=== PATIENT | female | born 1935 | race Two or more races ===

== ENCOUNTER 2019-06-19 16:56 | Outpatient (CLI) | payer MEDICARE, MEDICAID, SELFPAY ==
[2019-06-19 17:25] LABS: Cholesterol 70 mg/dL (0-200); HDL Direct 26 mg/dL; Triglycerides 66 mg/dL (<150)
[2019-06-19 18:04] LABS: LDL Cholesterol Direct < 30 mg/dL
== END 2019-06-19 16:57 | disposition home or self-care (01) ==
LOC: ANHLAB 17:03
PROVIDERS: PCP Family Medicine; Visit Provider Family Medicine
DX: E78.5 Hyperlipidemia, unspecified (principal)
CPT/HCPCS: 36415; 80061

== ENCOUNTER 2019-06-22 18:37 | Emergency (ER) | payer MEDICARE, MEDICAID, SELFPAY ==
[2019-06-22] VITALS (8 sets, daily range): BP systolic 102–130; BP diastolic 61–78; PULSE 69–84; RESP 12–20; TEMP 36.7; O2SAT 98–100
--- NOTE | 2019-06-22 19:04 | ED.NAVMDI ---
HPI - Nausea/Vomiting/Diarrhea General Chief complaint: Nausea/Vomiting/Diarrhea Stated complaint: diarrhea Time Seen by Provider: 06/22/19 18:48 Source: patient Mode of arrival: EMS Limitations: no limitations History of Present Illness HPI Narrative: An 84 y/o female presents to the ED, via EMS, with c/o diarrhea. She states that the diarrhea started 3 weeks ago and has been intermittent since. Pt did not have any episodes of diarrhea today, and last had watery diarrhea 4 days ago. She saw her PCP, Dr. Pate, yesterday and they prescribed her a medication. The patient is unsure about the name of the medication and adds that they advised her to come to the ED if the medication did not help. She reports nausea, but denies ABD pain and fever. Pt had a colonoscopy in March 2019. MD elicited complaint: diarrhea Onset (ago): week(s) (3) Associated nausea: Yes Associated abdominal pain: No Associated symptoms: nausea/vomiting Related Data Home Medications Medication Instructions Recorded Confirmed alendronate mg PO 06/22/19 atorvastatin 06/22/19 Allergies Allergy/AdvReac Type Severity Reaction Status Date / Time No Known Allergies Allergy Unverified 03/06/18 06:31 Review of Systems Review of Systems: All systems reviewed & are unremarkable except as noted in HPI and below Constitutional: Constitutional: Denies fever(s) Gastrointestinal: Gastrointestinal: Denies abdominal pain, Reports diarrhea and Reports nausea PMFSH Past Medical History Medical History (Updated 06/22/19 @ 22:02 by Scotty Miller MD) Arthritis Hip fracture, right HTN (hypertension) Hyperlipidemia Osteoporosis Ulcer UTI (urinary tract infection) Surgical History Surgical History (Updated 06/22/19 @ 19:27 by Kimber Thomason) History of appendectomy History of cardiac catheterization History of colonoscopy History of hip surgery History of hysterectomy History of inguinal hernia repair Family History Family History Mother Hypertension Patient's mother is in good health Other Cerebrovascular accident Diabetes mellitus Family history of cardiovascular disease Social History Social History (Updated 06/22/19 @ 19:08 by Kimber Thomason) Smoking status: Former smoker Second hand tobacco smoke exposure: Yes Smoking end date: 04/18/00 Alcohol intake: never Exam Const: General: no acute distress, well developed and other (Elderly, frail) Nutritional Appearance: well nourished Orientation/consciousness: patient oriented x3 (alert) and Other orientation findings (Alert) Limitations: no limitations HENMT: Head: normocephalic and atraumatic Ears: external ears normal General nose exam: No nasal discharge present and no epistaxis Face and sinus: face symmetric Mouth: Yes lip normal, Yes tongue normal and Yes moist mucous membranes Throat: other (No exudate, no erythema) Eyes: Conjunctivae: conjunctivae normal Sclera: sclerae normal EOM: EOMs intact bilaterally Neck: Neck: full ROM, no lymphadenopathy and supple Thyroid: thyroid normal Chest: Chest palpation & inspection: no tenderness Resp: Effort & Inspection: normal respiratory effort Auscultation: clear to auscultation bilaterally, no rales, no rhonchi, no wheezes and other (breath sounds equal) Cardio: Rate: regular rate Rhythm: regular rhythm Heart sounds: no gallops and no murmurs GI: Inspection: non-distended GI Palp: No abdominal tenderness and Yes Soft to palpation Auscultation: other (bowel sounds present) : General: Yes no CVA tenderness Back/Spine/Pelvis: Back: no CVA tenderness Thoracic/Lumbar Spine: thoracic and lumbar spine normal to inspection Skin: General skin exam: normal color and no rashes or lesions noted Neuro: General: patient oriented x3 (alert), moves all extremities and no focal motor deficits Cranial nerves: Yes facial symmetry Speech: normal speech Motor exam (neuro): M
[2019-06-22 19:41] LABS: Basophils Percent Auto 0.2 % (0.2-1.2); Eosinophils Percent Auto 0.2 % (0-4.4); Hematocrit 34.3 % (37.0-47.0); Hemoglobin 11.4 g/dL (12.0-15.0); Immature Granulocyte Absolute 0.02 K/mm3 (0.00-0.031); Immature Granulocyte Percent A 0.4 % (0-0.5); Lymphocytes Absolute Auto 0.95 K/mm3 (0.9-3.2); Lymphocytes Percent Auto 18.8 % (18.3-44.2); Mean Corpuscular HGB Conc 33.2 g/dl (32-36); Mean Corpuscular Hemoglobin 28.8 pg (26-34); Mean Corpuscular Volume 86.6 fl (80-100); Monocytes Absolute Auto 0.6 K/mm3 (0.1-0.6); Monocytes Percent Auto 12.5 % (2.6-8.5); Neutrophils Absolute Auto 3.4 K/mm3 (1.3-6.7); Neutrophils Percent Auto 67.9 % (45.5-73.1); Platelet Count Result 200 k/mm3 (150-375); Red Blood Count 3.96 M/mm3 (4.2-5.4)
[2019-06-22 19:53] LABS: Alanine Aminotransferase 39 U/L (4-35); Albumin Level 3.3 g/dL (3.5-5.1); Alkaline Phosphatase 159 U/L (38-126); Aspartate Amino Transferase 59 U/L (14-36); Bilirubin,Total 0.6 mg/dL (0.2-1.3); Blood Urea Nitrogen 15 mg/dL (7-17); Calcium 8.4 mg/dL (8.4-10.2); Carbon Dioxide 25 mmol/L (22-30); Chloride 104 mmol/L (98-107); Estimated Glomerular Filt Rate > 60; Glucose 89 mg/dL (65-105); Potassium 3.5 mmol/L (3.4-5.0); Sodium 141 mmol/L (137-145)
[2019-06-22] MEDS: LACTATED RINGERS 1,000 ML 999 ML IV CONT (20:31)
== END 2019-06-22 23:20 | disposition home or self-care (01) ==
PROVIDERS: Emergency Provider Emergency Medicine; PCP Family Medicine
DX: R19.7 Diarrhea, unspecified (principal); M19.90 Unspecified osteoarthritis, unspecified site; I10 Essential (primary) hypertension; E78.5 Hyperlipidemia, unspecified; M81.0 Age-related osteoporosis without current pathological fracture; Z87.440 Personal history of urinary (tract) infections; Z87.891 Personal history of nicotine dependence
CPT/HCPCS: 36415; 80053; 85025; 96360; 99283; J7120

== ENCOUNTER 2019-07-08 11:46 | Observation (INO) | payer MEDICARE, MEDICAID, SELFPAY ==
[2019-07-08] VITALS (8 sets, daily range): BP systolic 101–130; BP diastolic 47–84; PULSE 64–90; RESP 16–18; TEMP 36.8–36.9; O2SAT 98–100
--- NOTE | ~2019-07-08 | XR_ITS ---
EXAMINATION: XR abdomen obstructive series DATE: 07/08/2019 12:25 INDICATION: Left lower quadrant pain. Constipation. TECHNIQUE: Supine and upright views of the abdomen. FINDINGS: 01/19/2012 The visualized lung parenchyma is normal.. There is a nonspecific bowel gas pattern. Mildly distended small bowel loops are present in the left abdomen with air-fluid levels. There is fecal impaction of the rectum. There is no free air. 2 lag screws are identified transfixing the right femoral neck. T here is mild scoliosis with lumbar spondylosis. IMPRESSION: 1. Nonspecific bowel gas pattern with distended small bowel loops with air-fluid levels, most likely ileus. 2: Fecal impaction of the rectum. Reviewed, dictated and finalized at location A. IMPRESSION: 1. Nonspecific bowel gas pattern with distended small bowel loops with air-flu id levels, most likely ileus. 2: Fecal impaction of the rectum.
--- NOTE | ~2019-07-08 | CT_ITS ---
EXAMINATION: CT abdomen pelvis w con DATE: 07/08/2019 12:52 INDICATION: Left lower quadrant pain TECHNIQUE: Computed tomography (CT) of the abdomen and pelvis was performed with 100 cc Omnipaque 350 intravenous contrast. The dose-length product was 240.02 mGy-cm. Automated exposure control and iter ative reconstruction technique were employed. COMPARISON: CT dated 08/08/2008 FINDINGS: Bibasilar dependent atelectasis. Heart size normal. No significant pleural or pericardial e ffusion. Moderate atherosclerosis. 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 Small surgical subcentimeter hypodensity of the right hepatic lobe, most likely benign. The spleen, pancre as, adrenal glands and right kidney are unremarkable. Subcentimeter hypodensity of the left kidney, m ost likely benign cysts. Nonobstructive bowel gas pattern. There is large amount of retained fecal ma terial in the colon. There is mild infiltration of the perirectal fat. Colonic diverticulosis without diverticulitis. Small fat-containing left inguinal hernia. No free air or free fluid. There are lag screws in the right femoral neck. There are degenerative changes of the hips and lumbar spine. IMPRESSION: 1. Moderate retained fecal material in the rectum and distal colon with infiltration of the perirecta l fat, suspicious for a stercoral proctitis. Reviewed, dictated and finalized at location A. IMPRESSION: 1. Moderate retained fecal material in the rectum and distal colon with infiltr ation of the perirectal fat, suspicious for a stercoral proctitis.
--- NOTE | ~2019-07-08 | US_ITS ---
US right upper quadrant INDICATION: Elevated liver enzymes. PROCEDURE: Realtime right upper abdominal ultrasound. COMPARISON: CT dated 07/08/2019 FINDINGS: The pancreas is normal without focal mass or pancreatic ductal dilation. Liver echotexture is normal without focal mass or intrahepatic biliary dilatation. There is nodular appearance to the liver surface, suspicious for cirrhosis. There is normal directional flow in the portal vein. The gallbladder is normal without stones, gallbladder wall thickening or pericholecystic fluid. Comm on bile duct measures 5 mm. No sonographic Preciado's sign. IMPRESSION: 1: Nodular appearance to the liver surface, suspicious for cirrhosis. Correlate clinically. Reviewed, dictated and finalized at location A.
[2019-07-08 12:12] LABS: Basophils Percent Auto 0.1 % (0.2-1.2); Immature Granulocyte Percent A 0.7 % (0-0.5); Lymphocytes Absolute Auto 0.43 K/mm3 (0.9-3.2); Lymphocytes Percent Auto 3.2 % (18.3-44.2); Mean Corpuscular HGB Conc 31.6 g/dl (32-36); Mean Corpuscular Hemoglobin 28.4 pg (26-34); Mean Corpuscular Volume 89.8 fl (80-100); Mean Platelet Volume 10.4 fl (7.4-10.4); Monocytes Absolute Auto 0.5 K/mm3 (0.1-0.6); Neutrophils Absolute Auto 12.4 K/mm3 (1.3-6.7); Platelet Count Result 237 k/mm3 (150-375); Red Blood Count 4.23 M/mm3 (4.2-5.4); Red Cell Distribution Width 14.5 % (11.5-14.5); White Blood Count 13.5 K/mm3 (4.5-10.0)
--- NOTE | 2019-07-08 12:15 | ED.ABDPAIN ---
HPI - Abdominal Pain General Chief Complaint: Abdominal Pain <PAUL Weber Last Filed: 07/08/19 17:02> Stated Complaint: constipation <PAUL Weber Last Filed: 07/08/19 17:02> Time Seen by Provider: 07/08/19 11:59 <PAUL Weber Last Filed: 07/08/19 17:02> Source: patient <PAUL Weber Last Filed: 07/08/19 17:02> Mode of arrival: ambulatory <PAUL Weber Last Filed: 07/08/19 17:02> Limitations: no limitations <PAUL Weber Last Filed: 07/08/19 17:02> History of Present Illness HPI narrative: Patient is an 84-year-old female who presents to emergency department for evaluation of having had diarrhea for a week which began to subside and notes now she has not had a bowel movement for a week has been straining with no improvement. Patient notes she has had some rectal discomfort from the straining and small amount of bleeding. Patient notes she had one episode of emesis today. Patient denies any other complaints or symptoms and presents per EMS from home in no distress <PAUL Weber Last Filed: 07/08/19 17:02> Related Data Home Medications: Home Medications Medication Instructions Recorded Confirmed alendronate 70 mg PO WEEKLY 06/22/19 atorvastatin 40 mg PO DAILY 06/22/19 Calcium 600 + D(3) 07/08/19 Probiotic 07/08/19 aspirin 81 mg PO DAILY 07/08/19 isosorbide mononitrate 15 mg PO DAILY 07/08/19 <PAUL Weber Last Filed: 07/08/19 17:02> Allergies/Adverse Reactions: Allergies Allergy/AdvReac Type Severity Reaction Status Date / Time No Known Allergies Allergy Unverified 03/06/18 06:31 <PAUL Weber Last Filed: 07/08/19 17:02> Review of Systems Review of Systems: All systems reviewed & are unremarkable except as noted in HPI and below <PAUL Weber Last Filed: 07/08/19 17:02> PMFSH Past Medical History Medical History: Medical History Arthritis Hip fracture, right HTN (hypertension) Hyperlipidemia Osteoporosis Ulcer UTI (urinary tract infection) <Daryn Sosa PA-C - Last Filed: 07/08/19 17:02> Surgical History Surgical History: Surgical History History of appendectomy History of cardiac catheterization History of colonoscopy History of hip surgery History of hysterectomy History of inguinal hernia repair <Daryn Sosa PA-C - Last Filed: 07/08/19 17:02> Social History Social History: Social History Smoking status: Former smoker Second hand tobacco smoke exposure: Yes Smoking end date: 04/18/00 Alcohol intake: never <Daryn Sosa PA-C - Last Filed: 07/08/19 17:02> Exam Narrative: Exam Narrative: GENERAL: Well-appearing, well-nourished, and in no acute distress. HEAD: Normocephalic, atraumatic. EYES: PERRLA and EOMI. ENT: Nares clear, no rhinorrhea or epistaxis. Mucous membranes moist. CHEST: Clear to auscultation. No respiratory distress. No wheezes rales or rhonchi HEART: Regular rate and rhythm. No murmur heard. Normal peripheral pulses. ABDOMEN: Soft, left lower quadrant tenderness to palpation with voluntary guarding, nondistended EXTREMITIES: Normal range of motion. No edema. SKIN: Warm, dry, no rash. NEURO: No focal deficits. Alert and oriented x3. Cranial nerves II through XII grossly intact PSYCH: Normal mood and affect. <Daryn Sosa PA-C - Last Filed: 07/08/19 17:02> Procedures Other Procedure Procedure 1: Other Procedure: Patient was manually disimpacted with lidocaine patient was able to tolerate the procedure in limited fashion no stool was removed but was able to attempt to loosen the stool ball <Daryn Sosa PA-C - Last Filed: 07/08/19 17:02> Course Course Delfina
[2019-07-08 12:28] LABS: Alanine Aminotransferase 324 U/L (4-35); Albumin Level 3.8 g/dL (3.5-5.1); Alkaline Phosphatase 1009 U/L (38-126); Aspartate Amino Transferase 311 U/L (14-36); Bilirubin,Total 1.1 mg/dL (0.2-1.3); Blood Urea Nitrogen 12 mg/dL (7-17); Calcium 9.1 mg/dL (8.4-10.2); Carbon Dioxide 25 mmol/L (22-30); Chloride 103 mmol/L (98-107); Estimated CRCL calculation 45 ml/min; Estimated Glomerular Filt Rate > 60; Glucose 120 mg/dL (65-105); Lipase 127 U/L (23-300); Sodium 136 mmol/L (137-145)
[2019-07-08] MEDS: SODIUM CHLORIDE 0.9% IV 1,000 ML 999 ML IV CONT (12:36)
[2019-07-08 12:39] LABS: Potassium 4.1 mmol/L (3.4-5.0)
[2019-07-08 12:54] LABS: Add Urine Microscopic? YES; Appearance Urine Clear (Clear); Bacteria Urine Trace /hpf; Bilirubin Urine Negative (Negative); Blood Urine 2+ (Negative); Color Urine Yellow (Yellow); Glucose Urine UA Negative (Negative); Ketones Urine 1+ mg/dL (Negative); Leukocyte Esterase Ur Trace LEU/UL (Negative); Mucus Urine Rare /lpf; Nitrate Urine Negative (Negative); Protein Urine 1+ mg/dL (Negative); Specific Grav Ur 1.018 (1.001-1.035); Squamous Epithelial Cell Urine Rare /hpf (Few); WBC Urine 16-20 /hpf
[2019-07-08 13:34] LABS: Lactic Acid Reflex 1.5 mmol/L (0.7-2.1)
[2019-07-08] MEDS: DOCUSATE SODIUM 400 MG/400 ML ENEMA RECTAL (13:35)
--- NOTE | 2019-07-08 14:52 | PC.NURSE ---
after colace enema, pt was placed on commode and unable to produce any feces. Pt sat for approx 25 minutes, and then was assisted back into bed and given blankets for comfort. HUYEN Cabrera, aware of results. Lidocaine jelly at bedside per Deshaun request
[2019-07-08] MEDS: LIDOCAINE HCL 2% GEL UROJET 10 ML PKG (15:23)
[2019-07-08] MEDS: polyethylene glycoL 3350 17 GM POWD.PACK PO (15:54)
[2019-07-08] MEDS: HYDROCORTISONE ACETATE 25 MG SUPPOSITORY RECTAL (17:28)
[2019-07-08] MEDS: LACTATED RINGERS 1,000 ML 125 ML IV CONT (18:30)
--- NOTE | 2019-07-08 18:45 | PM.IMHP ---
H&P: HPI History of Present Illness Chief complaint: Constipation. Narrative: Carmella Garcia is an 84-year-old female with hypertension, hyperlipidemia, and mild coronary artery disease noted on prior cardiac catheterization who presented to the emergency department earlier today with complaints of constipation. A couple of weeks ago she suffered diarrhea for several days, and after it subsided she then developed constipation. In fact she was seen in the emergency department June 19, 2019 with diarrhea and was instructed to follow-up with her GI specialist in [place]. Since that time, she has become constipated and it has been nearly 1 weeks time since she has had a bowel movement. She was wakened from sleep this morning at 03:30 with abdominal cramping, and she thought perhaps she was going to have a bowel movement. She strained on the toilet for quite some time, without success. She took a Dulcolax and used a glycerin suppository, and thereafter attempted to manually disimpact, again without success. She also notes nausea and 1 episode of emesis this morning that she describes as ?clear and cloudy? and generalized abdominal discomfort and occasional cramping. No significant bloating. An enema in the emergency department but was unable to pass any stool. The ED provider then attempted to manually disimpact, and despite using topical lidocaine the patient was unable to tolerate disimpaction. That CT in the emergency department showed findings suspicious for stercoral proctitis, in ED provider did note that the area was red and inflamed, with small amounts of bleeding. She has never had constipation to this extent in the past. No recent change in diet. No history of thyroid disease. Incidentally, her AST, ALT, and alkaline phosphatase are elevated, of which she denies a history of such. She denies significant Tylenol use. No exposure to hepatitis. No fever, chills, or sweats. No rash. Urine color remains unchanged. No pruritus. No jaundice or scleral icterus. Review of Systems Review of Systems: Narrative: No fever, chills, or sweats. No recent cold or flu symptoms. She denies chest pain and shortness of breath. Weight has remained stable. No history of thyroid disease. No dysuria. No known history of liver disease. No exposure to hepatitis. Appetite has been as per usual. She has lost about 9 or 10 pounds in an unknown length of time, but she denies that it was sudden. Except as documented, all other systems were reviewed and are negative. [facility] Past Medical History Medical History (Updated 07/08/19 @ 21:26 by Susan San PA-C) Arthritis Hip fracture, right Hyperlipidemia Hypertension Mild coronary artery disease : Patient notes mild coronary disease on prior cardiac catheterization per Dr. Thomas. No intervention required. Osteoporosis Surgical History Surgical History History of appendectomy History of cardiac catheterization History of colonoscopy History of hip surgery History of hysterectomy History of inguinal hernia repair Family History Family History Mother Hypertension Patient's mother is in good health Other Cerebrovascular accident Diabetes mellitus Family history of cardiovascular disease Social History Social History (Updated 07/08/19 @ 21:06 by Susan San PA-C) Social History: The patient lives in her own home in [place], [place]. 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 She has 1 daughter who lives in [place]. Her daughter, Katya Haider, is her surrogate decision maker and she wishes to be a full code. She smoked for short period of time remotely. No alcohol or drug use. Smoking packs per day: 0.25 Smoking cigarettes per day: 5.0 Smoking status: Former smoker Tobacco type: cigarettes Second hand tobacco smoke exposure: Yes Smoking end
--- NOTE | 2019-07-08 19:12 | PC.NURSE ---
Patient arrived on floor @1805, Patient oriented to unit, call light placed within reach of patient, daily home medications stated by patient.
[2019-07-08 22:04] LABS: Prothrombin Time 12.6 Seconds (11.1-14.7)
[2019-07-08 22:05] LABS: Partial Thromboplastin Time 28.4 SECONDS (22.3-36.8)
[2019-07-08 22:06] LABS: Acetaminophen 21 ug/mL (10-30)
[2019-07-08 22:37] LABS: Hepatitis B Surface Antigen Negative (Negative)
[2019-07-08 22:43] LABS: HAV RESULT Negative (Negative); Hepatitis B Core IgM Result Negative (Negative)
[2019-07-08 23:52] LABS: Hepatitis C Virus Antibody Reactive (Negative)
[2019-07-09 04:00] VITALS: BP 148/88; PULSE 84; RESP 20; TEMP 36.6; O2SAT 99
[2019-07-09] MEDS: HYDROCORTISONE ACETATE 25 MG SUPPOSITORY RECTAL (05:27)
[2019-07-09] MEDS: IBUPROFEN IV 400 MG in SODIUM CHLORIDE 0.9% IV 100 ML 200 MG IVPB (05:46)
[2019-07-09 06:00] VITALS: BP 141/70; PULSE 57; RESP 18; TEMP 36.8; O2SAT 100
[2019-07-09 06:20] LABS: Basophils Percent Auto 0.1 % (0.2-1.2); Eosinophils Percent Auto 0.1 % (0-4.4); Hematocrit 34.1 % (37.0-47.0); Hemoglobin 10.9 g/dL (12.0-15.0); Immature Granulocyte Absolute 0.03 K/mm3 (0.00-0.031); Immature Granulocyte Percent A 0.4 % (0-0.5); Lymphocytes Absolute Auto 1.04 K/mm3 (0.9-3.2); Lymphocytes Percent Auto 12.3 % (18.3-44.2); Mean Corpuscular Hemoglobin 28.5 pg (26-34); Mean Corpuscular Volume 89.3 fl (80-100); Mean Platelet Volume 10.7 fl (7.4-10.4); Monocytes Absolute Auto 0.6 K/mm3 (0.1-0.6); Monocytes Percent Auto 7.1 % (2.6-8.5); Neutrophils Absolute Auto 6.8 K/mm3 (1.3-6.7); Platelet Count Result 250 k/mm3 (150-375); Red Blood Count 3.82 M/mm3 (4.2-5.4); Red Cell Distribution Width 14.7 % (11.5-14.5); White Blood Count 8.5 K/mm3 (4.5-10.0)
[2019-07-09 06:27] LABS: Alanine Aminotransferase 242 U/L (4-35); Albumin Level 3.1 g/dL (3.5-5.1); Alkaline Phosphatase 707 U/L (38-126); Aspartate Amino Transferase 202 U/L (14-36); Bilirubin,Total 0.8 mg/dL (0.2-1.3); Blood Urea Nitrogen 9 mg/dL (7-17); Calcium 8.8 mg/dL (8.4-10.2); Carbon Dioxide 26 mmol/L (22-30); Chloride 108 mmol/L (98-107); Estimated CRCL calculation 45 ml/min; Estimated Glomerular Filt Rate > 60; Glucose 96 mg/dL (65-105); Potassium 3.9 mmol/L (3.4-5.0); Sodium 138 mmol/L (137-145)
[2019-07-09] MEDS: ASPIRIN 81 MG CHEWABLE TABLET PO (10:17)
[2019-07-09] MEDS: ISOSORBIDE MONONITRATE 15 MG TAB.ER.24H PO (10:18)
[2019-07-09 10:21] VITALS: BP 146/75; PULSE 70; RESP 18; O2SAT 100
--- NOTE | 2019-07-09 11:19 | WPDGICN ---
Assessment and Plan Assessment and plan (1) Constipation: Code(s): K59.00 - Constipation, unspecified Status: Acute Assessment and Plan: Constipation appears to be related to rectal discomfort. A vicious cycle is likely given her difficulty having bowel movement without rectal pain. And continued rectal pain while constipated. Plan is for regime to include stool softener such as Colace or fiber on a daily basis. Routine use of MiraLax initially daily and then on a routine basis subsequently period is advised. (2) Rectal pain: Code(s): K62.89 - Other specified diseases of anus and rectum Status: Acute Assessment and Plan: Rectal pain likely due to hemorrhoids. Although a rectal fissure cannot be excluded. I would advise lidocaine to be applied to this area it frequently typically after a bowel movement. Hopefully this will allow laxatives or enemas to relieve her constipation. Colonoscopy is advised after constipation is relieved. This can be performed as a outpatient unless she remains hospitalized. (3) Transaminitis: Code(s): R74.0 - Nonspecific elevation of levels of transaminase and lactic acid dehydrogenase [LDH] Status: Acute Assessment and Plan: Elevated LFTs identified. These are primarily her transaminases. HCV RIBA is positive suggesting possible hepatitis C infection. Confirmatory testing still pending. We will monitor LFTs at this time. If hepatitis C confirmed antiviral therapy can be performed electively as an outpatient. GI Consult Note Consult date/time: 07/09/19 11:19 HPI: Carmella Garcia is a 84 year old female seen in evaluation at the request of the hospitalist service. Patient has a history of irregular bowel habits. She presented to the emergency room complaining of rectal pain and constipation last evening. She occasionally notices bright red blood per rectum. Patient was seen in the ER several weeks ago with diarrhea now with constipation. It is uncertain how regularly she takes her bowel regime at home. Currently has not had a bowel movement in 1 week. She also was noted to have elevated LFTs. She denies any prior knowledge of this. She has no known history of hepatitis. There has been no recent change in her medications. She reports no yellow jaundice nor pure itis. Review of Systems Review of Systems: All systems reviewed & are unremarkable except as noted in HPI and below PMFSH Past Medical History Medical History Arthritis Hip fracture, right Hyperlipidemia Hypertension Mild coronary artery disease : Patient notes mild coronary disease on prior cardiac catheterization per Dr. Thomas. No intervention required. Osteoporosis Surgical History Surgical History History of appendectomy History of cardiac catheterization History of colonoscopy History of hip surgery History of hysterectomy History of inguinal hernia repair Family History Family History Mother Hypertension Patient's mother is in good health Other Cerebrovascular accident Diabetes mellitus Family history of cardiovascular disease Social History Social History Social History: The patient lives in her own home in [place], [place]. 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 She has 1 daughter who lives in [place]. Her daughter, Katya Haider, is her surrogate decision maker and she wishes to be a full code. She smoked for short period of time remotely. No alcohol or drug use. Smoking packs per day: 0.25 Smoking cigarettes per day: 5.0 Smoking status: Former smoker Tobacco type: cigarettes Second hand tobacco smoke exposure: Yes Smoking end date: 04/18/00 Spiritual care concerns: No Agree to blood products: Yes Meds
--- NOTE | 2019-07-09 11:31 | PM.IMPN ---
Progress Note: A&P Assessment and Plan (1) Constipation: Qualifiers: Constipation type: unspecified constipation type Qualified Code(s): K59.00 - Constipation, unspecified Code(s): K59.00 - Constipation, unspecified Status: Acute Assessment and Plan: Possibly aggravated by her rectal pain and unwillingness to take laxatives or stool softeners Topical analgesics for rectal pain Dulcolax sennosides, MiraLax Home when bowels move (2) Rectal pain: Code(s): K62.89 - Other specified diseases of anus and rectum Status: Acute Assessment and Plan: Hemorrhoids versus local irritation versus fissure Topical lidocaine Softeners and laxatives (3) Transaminitis: Code(s): R74.0 - Nonspecific elevation of levels of transaminase and lactic acid dehydrogenase [LDH] Status: Acute Assessment and Plan: Hepatitis C antibody positive with RNA pending Ultrasound abdomen suspicious for cirrhosis Will need outpatient follow-up (4) Hypertension: Qualifiers: Hypertension type: unspecified Qualified Code(s): I10 - Essential (primary) hypertension Code(s): I10 - Essential (primary) hypertension Status: Acute Assessment and Plan: Continue regimen Subjective Date/time seen: 07/09/19 11:31 Interval history: Admitted July 07 with obstipation fecal impaction and severe rectal pain. Refuses to take laxative because of rectal pain. Tolerating oral intake Review of Systems Review of Systems: All systems reviewed & are unremarkable except as noted in HPI and below Exam Narrative: Exam Narrative: HEENT: EOMI, PERRL, pharyngeal mucosa pink and intact NECK: No JVD CHEST: Clear to auscultation. Normal effort. HEART: NL S1/S2, regular, no murmur ABDOMEN: BS+, soft, nontender, no mass, no bruits EXTREMITIES: No cyanosis, edema, or clubbing NEUROLOGIC: CN intact and symmetric to inspection. MUSCULOSKELETAL: Tone and strength symmetric. PSYCH: Alert. Oriented to person, place, and time. Objective Data Vital Signs Vital Signs: Vital Signs - 24 hr 07/08/19 11:52 07/08/19 12:00 07/08/19 13:00 Temperature 98.4 F Pulse Rate 90 87 70 Respiratory Rate 16 18 16 Blood Pressure 118/71 130/84 125/69 Pulse Oximetry 98 99 100 07/08/19 15:00 07/08/19 16:53 07/08/19 17:35 Temperature Pulse Rate 65 72 83 Respiratory Rate 16 16 18 Blood Pressure 129/79 124/68 118/71 Pulse Oximetry 99 99 98 07/08/19 18:15 07/08/19 22:00 07/09/19 04:00 Temperature 98.4 F 98.3 F 97.8 F Pulse Rate 65 64 84 Respiratory Rate 18 18 20 Blood Pressure 101/47 L 128/69 148/88 H Pulse Oximetry 100 98 99 07/09/19 06:00 07/09/19 10:21 Temperature 98.2 F Pulse Rate 57 L 70 Respiratory Rate 18 18 Blood Pressure 141/70 H 146/75 H Pulse Oximetry 100 100 Intake/Output Intake/Output: Intake & Output 07/06/19 07/07/19 07/08/19 07/09/19 23:59 23:59 23:59 23:59 Intake Total 1200 434 Output Total 200 Balance 1200 234 Meds/Results Medications: Active Medications Generic Name Dose Route Start Last Admin [facility] Reason Stop Dose Admin Aspirin 81 mg 07/09/19 09:00 07/09/19 10:17 Aspirin Chewable PO 81 mg DAILY NESTOR Administration Bisacodyl 10 mg 07/09/19 11:27 Dulcolax Tab PO 07/09/19 11:28 ONCE ONE Calcium Carbonate 500 mg 07/09/19 09:00 07/09/19 10:17 Os-Jose Luis 500 +D Tablet PO 500 mg QAM NESTOR Administration Hydrocortisone Acetate 25 mg 07/09/19 04:04 07/09/19 05:27 Anusol-Hc Suppository RECTAL 25 mg Q12HR PRN Administration Rectal pain Isosorbide Mononitrate 15 mg 07/09/19 09:00 07/09/19 10:18 Imdur PO 15 mg QAM NESTOR Administration Lidocaine HCl 1 applic 07/09/19 11:24 Lidocaine Jelly 2% MUCOUS MEM Q4H PRN Hemorrhoids Ondansetron HCl 4 mg 07/08/19 17:03 Zofran Inj IV PUSH Q4H PRN Nausea Polyethylene Glycol 17 gm 07/09/19 1
[2019-07-09] MEDS: LIDOCAINE HCL 2% JELLY 30 ML TUBE 1 APPLIC MUCOUS MEM ×3 (11:57→20:31)
[2019-07-09] MEDS: BISACODYL 5 MG TABLET EC 10 MG PO (13:15)
[2019-07-09] MEDS: polyethylene glycoL 3350 17 GM POWD.PACK PO (13:16)
[2019-07-09] MEDS: SENNOSIDES 8.6 MG TABLET PO (13:16)
[2019-07-09 14:00] VITALS: BP 143/89; PULSE 73; RESP 18; TEMP 36.8; O2SAT 99
[2019-07-09 22:00] VITALS: BP 158/81; PULSE 91; RESP 18; TEMP 36.7; O2SAT 98
--- NOTE | 2019-07-09 23:03 | PC.NURSE ---
Pt is refusing medication, tried to educate patient on reason why medications are being given. Pt kept interrupting and would not listen to education. Pt still refused medications. Notified Susan MATSON.
[2019-07-09] MEDS: ACETAMINOPHEN 325 MG TABLET 650 MG PO (23:21)
[2019-07-09] MEDS: WITCH HAZEL 40 PADS 1 PAD TOPICAL (23:22)
[2019-07-10] MEDS: LIDOCAINE HCL 2% JELLY 30 ML TUBE 1 APPLIC MUCOUS MEM ×3 (04:45→14:02)
[2019-07-10] MEDS: polyethylene glycoL 3350 17 GM POWD.PACK PO ×7 (04:45→21:40)
[2019-07-10] MEDS: ACETAMINOPHEN 325 MG TABLET 650 MG PO ×3 (05:41→21:39)
[2019-07-10] MEDS: HYDROCORTISONE ACETATE 25 MG SUPPOSITORY RECTAL (05:52)
[2019-07-10 06:00] VITALS: BP 153/79; PULSE 73; RESP 18; TEMP 37.1; O2SAT 99
[2019-07-10] MEDS: ISOSORBIDE MONONITRATE 15 MG TAB.ER.24H PO (09:58)
[2019-07-10] MEDS: ASPIRIN 81 MG CHEWABLE TABLET PO (09:58)
--- NOTE | 2019-07-10 10:19 | PM.IMPN ---
Progress Note: A&P Assessment and Plan (1) Constipation: Qualifiers: Constipation type: unspecified constipation type Qualified Code(s): K59.00 - Constipation, unspecified Code(s): K59.00 - Constipation, unspecified Status: Acute Assessment and Plan: Possibly aggravated by her rectal pain and unwillingness to take laxatives or stool softeners Topical analgesics for rectal pain Dulcolax sennosides, MiraLax Home when bowels move (2) Rectal pain: Code(s): K62.89 - Other specified diseases of anus and rectum Status: Acute Assessment and Plan: Hemorrhoids versus local irritation versus fissure Topical lidocaine Softeners and laxatives (3) Transaminitis: Code(s): R74.0 - Nonspecific elevation of levels of transaminase and lactic acid dehydrogenase [LDH] Status: Acute Assessment and Plan: Hepatitis C antibody positive with RNA pending Ultrasound abdomen suspicious for cirrhosis Will need outpatient follow-up (4) Hypertension: Qualifiers: Hypertension type: unspecified Qualified Code(s): I10 - Essential (primary) hypertension Code(s): I10 - Essential (primary) hypertension Status: Acute Assessment and Plan: Continue regimen, nitrate only (5) DVT prophylaxis: Code(s): Z29.9 - Encounter for prophylactic measures, unspecified Status: Acute Assessment and Plan: Mechanical Subjective Date/time seen: 07/10/19 10:19 Interval history: Date of visit 07/09. 84-year-old black female admitted July 07 with obstipation fecal impaction and severe rectal pain. Refuses to take laxative because of rectal pain. Tolerating oral intake but still no bowel movement Exam Narrative: Exam Narrative: Blood pressure 150/80 pulse is 72 afebrile HEENT: EOMI, PERRL, NECK: No JVD CHEST: Clear to auscultation. Normal effort. HEART: NL S1/S2, regular, no murmur ABDOMEN: BS+, soft, nontender, no mass, no bruits EXTREMITIES: No cyanosis, edema, or clubbing NEUROLOGIC: CN intact and symmetric to inspection. . PSYCH: Alert. Oriented to person, place, and time. Objective Data Vital Signs Vital Signs: Vital Signs - 24 hr 07/09/19 10:21 07/09/19 14:00 07/09/19 22:00 Temperature 36.8 C 36.7 C Pulse Rate 70 73 91 Respiratory Rate 18 18 18 Blood Pressure 146/75 H 143/89 H 158/81 H Pulse Oximetry 100 99 98 07/10/19 06:00 Temperature 37.1 C Pulse Rate 73 Respiratory Rate 18 Blood Pressure 153/79 H Pulse Oximetry 99 Intake/Output Intake/Output: Intake & Output 07/07/19 07/08/19 07/09/19 07/10/19 23:59 23:59 23:59 23:59 Intake Total 1200 784 0 Output Total 200 450 Balance 1200 584 -450 Meds/Results Medications: Active Medications Generic Name Dose Route Start Last Admin Trade Name Freq PRN Reason Stop Dose Admin Acetaminophen 650 mg 07/09/19 23:12 07/10/19 05:41 Tylenol Tablet PO 650 mg Q6H PRN Administration Mild Pain (1-3) or Fever Aspirin 81 mg 07/09/19 09:00 07/10/19 09:58 Aspirin Chewable PO 81 mg DAILY NESTOR Administration Calcium Carbonate 500 mg 07/09/19 09:00 07/10/19 09:58 Os-Jose Luis 500 +D Tablet PO 500 mg QAM [facility] Administration Hydrocortisone Acetate 25 mg 07/09/19 04:04 07/10/19 05:52 Anusol-Hc Suppository RECTAL 25 mg Q12HR PRN Administration Rectal pain Isosorbide Mononitrate 15 mg 07/09/19 09:00 07/10/19 09:58 Imdur PO 15 mg QAM [facility] Administration Lidocaine HCl 1 applic 07/09/19 11:24 07/10/19 09:58 Lidocaine Jelly 2% MUCOUS MEM 1 applic Q4H PRN Administration Hemorrhoids Ondansetron HCl 4 mg 07/08/19 17:03 Zofran Inj IV PUSH Q4H PRN Nausea Polyethylene Glycol 17 gm 07/09/19 11:30 07/10/19 09:57 Miralax PO 17 gm Q2H NESTOR Administration Witch Kristi 1 pad 07/09/19 23:12 07/09/19 23:22 Tucks Pads TOPICAL 1 pad PRN PRN Administration Perineal Discomfor
--- NOTE | 2019-07-10 10:33 | WPDGIPROGNO ---
Progress Note: A&P Additional Plan Patient reports topical lidocaine has helped her rectal pain to a significant degree. She still reports no significant bowel movements. Continues to refuse laxatives. Physical exam reveals her to be alert. Comfortable at rest. She is anicteric. Lungs are clear. Abdomen is soft and nontender. Bowel sounds are present. Rectal exam reveals some tenderness at the anus. Impression 1. Rectal pain. Hemorrhoids and/or fissure or likely. Plan is for topical lidocaine. Stool softener strongly encourage. Relief of constipation may help this. 2. Constipation. Patient continues to to be noncompliant with laxatives. Plan to consider colonoscopy after relief of constipation. This may need to be performed as an outpatient. Patient reports having had colon polyps in the past. In addition to hemorrhoids. Subjective Date/time seen: 07/10/19 10:33 Objective Data Vital Signs Vital Signs: Vital Signs - 24 hr 07/09/19 14:00 07/09/19 22:00 07/10/19 06:00 Temperature 36.8 C 36.7 C 37.1 C Pulse Rate 73 91 73 Respiratory Rate 18 18 18 Blood Pressure 143/89 H 158/81 H 153/79 H Pulse Oximetry 99 98 99 Intake/Output Intake/Output: Intake & Output 07/07/19 07/08/19 07/09/19 07/10/19 23:59 23:59 23:59 23:59 Intake Total 1200 784 0 Output Total 200 450 Balance 1200 584 -450 Meds/Results Medications: Active Medications Generic Name Dose Route Start Last Admin Trade Name Freq PRN Reason Stop Dose Admin Acetaminophen 650 mg 07/09/19 23:12 07/10/19 05:41 Tylenol Tablet PO 650 mg Q6H PRN Administration Mild Pain (1-3) or Fever Aspirin 81 mg 07/09/19 09:00 07/10/19 09:58 Aspirin Chewable PO 81 mg DAILY NESTOR Administration Calcium Carbonate 500 mg 07/09/19 09:00 07/10/19 09:58 Os-Jose Luis 500 +D Tablet PO 500 mg QAM NESTOR Administration Hydrocortisone Acetate 25 mg 07/09/19 04:04 07/10/19 05:52 Anusol-Hc Suppository RECTAL 25 mg Q12HR PRN Administration Rectal pain Isosorbide Mononitrate 15 mg 07/09/19 09:00 07/10/19 09:58 Imdur PO 15 mg QAM NESTOR Administration Lidocaine HCl 1 applic 07/09/19 11:24 07/10/19 09:58 Lidocaine Jelly 2% MUCOUS MEM 1 applic Q4H PRN Administration Hemorrhoids Ondansetron HCl 4 mg 07/08/19 17:03 Zofran Inj IV PUSH Q4H PRN Nausea Polyethylene Glycol 17 gm 07/09/19 11:30 07/10/19 09:57 Miralax PO 17 gm Q2H NESTOR Administration Witch Kristi 1 pad 07/09/19 23:12 07/09/19 23:22 Tucks Pads TOPICAL 1 pad PRN PRN Administration Perineal Discomfort Radiology Results: ITS Impressions Abdomen X-Ray 07/08/19 12:27 IMPRESSION: 1. Nonspecific bowel gas pattern with distended small bowel loops with air-fluid levels, most likely ileus. 2: Fecal impaction of the rectum. Abdomen/Pelvis CT 07/08/19 12:54 IMPRESSION: 1. Moderate retained fecal material in the rectum and distal colon with infiltration of the perirectal fat, suspicious for a stercoral proctitis. Upper Quadrant Ultrasound 07/09/19 09:33 IMPRESSION: 1: Nodular appearance to the liver surface, suspicious for cirrhosis. Correlate clinically. Labs Labs: Laboratory Results - last 24 hr 07/08/19 21:46 HCV RNA (PCR) IUs/ml Cancelled HCV RNA PCR log IUs/ml Cancelled
[2019-07-10 14:30] VITALS: BP 124/76; PULSE 86; RESP 16; TEMP 36.9; O2SAT 100
[2019-07-10 22:00] VITALS: BP 149/86; PULSE 94; RESP 18; TEMP 36.8; O2SAT 98
[2019-07-11 06:00] VITALS: BP 143/91; PULSE 114; RESP 18; TEMP 36.4; O2SAT 100
[2019-07-11] MEDS: LIDOCAINE HCL 2% JELLY 30 ML TUBE 1 APPLIC MUCOUS MEM ×2 (06:03→08:09)
[2019-07-11] MEDS: WITCH HAZEL 40 PADS 1 PAD TOPICAL (06:04)
[2019-07-11 06:31] LABS: Basophils Percent Auto 0.2 % (0.2-1.2); Eosinophils Absolute Auto 0.1 K/mm3 (0-0.3); Hematocrit 38.3 % (37.0-47.0); Hemoglobin 12.4 g/dL (12.0-15.0); Immature Granulocyte Absolute 0.05 K/mm3 (0.00-0.031); Immature Granulocyte Percent A 0.5 % (0-0.5); Lymphocytes Absolute Auto 1.59 K/mm3 (0.9-3.2); Lymphocytes Percent Auto 17.1 % (18.3-44.2); Mean Corpuscular HGB Conc 32.4 g/dl (32-36); Mean Corpuscular Hemoglobin 28.2 pg (26-34); Mean Corpuscular Volume 87.2 fl (80-100); Mean Platelet Volume 10.3 fl (7.4-10.4); Monocytes Absolute Auto 0.7 K/mm3 (0.1-0.6); Monocytes Percent Auto 7.5 % (2.6-8.5); Neutrophils Absolute Auto 6.8 K/mm3 (1.3-6.7); Neutrophils Percent Auto 73.7 % (45.5-73.1); Platelet Count Result 307 k/mm3 (150-375); Red Blood Count 4.39 M/mm3 (4.2-5.4); Red Cell Distribution Width 14.6 % (11.5-14.5); White Blood Count 9.3 K/mm3 (4.5-10.0)
[2019-07-11 06:51] LABS: Alanine Aminotransferase 180 U/L (4-35); Albumin Level 3.8 g/dL (3.5-5.1); Alkaline Phosphatase 841 U/L (38-126); Aspartate Amino Transferase 132 U/L (14-36); Blood Urea Nitrogen 10 mg/dL (7-17); Calcium 9.5 mg/dL (8.4-10.2); Carbon Dioxide 22 mmol/L (22-30); Chloride 106 mmol/L (98-107); Estimated CRCL calculation 45 ml/min; Estimated Glomerular Filt Rate > 60; Glucose 93 mg/dL (65-105); Potassium 3.9 mmol/L (3.4-5.0); Sodium 137 mmol/L (137-145)
[2019-07-11 08:00] VITALS: PULSE 114; RESP 18; O2SAT 100
[2019-07-11] MEDS: ISOSORBIDE MONONITRATE 15 MG TAB.ER.24H PO (08:09)
[2019-07-11] MEDS: ASPIRIN 81 MG CHEWABLE TABLET PO (08:09)
--- NOTE | 2019-07-11 08:51 | WPDGIPROGNO ---
Progress Note: A&P Additional Plan Patient alert this morning reports large bowel movement. Continues to note rectal pain. Denies abdominal pain. Physical exam reveals her to be alert. Lungs are clear. Abdomen is soft and nontender. Rectal remains tender. Ultrasound suggests the patient may have cirrhosis of the liver. Labs reveal elevated LFTs. Hepatitis C viral titer elevated. Impression 1. Rectal pain. Attributed to hemorrhoids although anal fissure cannot be excluded. 2. Constipation. Appears to be resolved. 3. Hepatitis-C. Likely chronic in nature. May account for cirrhosis. Outpatient therapy is suggested. We will get her sent to [facility] for therapy after viral crisis has resolved. Plan is for stool softeners to be taken regularly. Mayor MiraLax daily if needed. Metamucil daily is also advised. Patient would benefit from outpatient colonoscopy. After resolution of her constipation. For symptomatic treatment of her rectal pain advise recticare 5% lidocaine ointment be given on a p.r.n. basis. Follow up as an outpatient with [facility] hepatology for treatment of hepatitis C is strongly advised. Subjective Date/time seen: 07/11/19 08:51 Objective Data Vital Signs Vital Signs: Vital Signs - 24 hr 07/10/19 14:30 07/10/19 22:00 07/11/19 06:00 Temperature 36.9 C 36.8 C 36.4 C L Pulse Rate 86 94 114 H Respiratory Rate 16 18 18 Blood Pressure 124/76 149/86 H 143/91 H Pulse Oximetry 100 98 100 Intake/Output Intake/Output: Intake & Output 07/08/19 07/09/19 07/10/19 07/11/19 23:59 23:59 23:59 23:59 Intake Total 1200 784 450 180 Output Total 200 1250 Balance 1200 584 -800 180 Meds/Results Medications: Active Medications Generic Name Dose Route Start Last Admin Trade Name Freq PRN Reason Stop Dose Admin Acetaminophen 650 mg 07/09/19 23:12 07/10/19 21:39 Tylenol Tablet PO 650 mg Q6H PRN Administration Mild Pain (1-3) or Fever Aspirin 81 mg 07/09/19 09:00 07/11/19 08:09 Aspirin Chewable PO 81 mg DAILY NESTOR Administration Calcium Carbonate 500 mg 07/09/19 09:00 07/11/19 08:08 Os-Jose Luis 500 +D Tablet PO 500 mg QAM [facility] Administration Hydrocortisone Acetate 25 mg 07/09/19 04:04 07/10/19 05:52 Anusol-Hc Suppository RECTAL 25 mg Q12HR PRN Administration Rectal pain Isosorbide Mononitrate 15 mg 07/09/19 09:00 07/11/19 08:09 Imdur PO 15 mg QAM NESTOR Administration Lidocaine HCl 1 applic 07/09/19 11:24 07/11/19 08:09 Lidocaine Jelly 2% MUCOUS MEM 1 applic Q4H PRN Administration Hemorrhoids Ondansetron HCl 4 mg 07/08/19 17:03 Zofran Inj IV PUSH Q4H PRN Nausea Polyethylene Glycol 17 gm 07/11/19 09:00 Miralax PO QAM [facility] Saccharomyces Boulardii 250 mg 07/11/19 09:00 Florastor PO BID NESTOR Witch Kristi 1 pad 07/09/19 23:12 07/11/19 06:04 Tucks Pads TOPICAL 1 pad PRN PRN Administration Perineal Discomfort Radiology Results: ITS Impressions Abdomen X-Ray 07/08/19 12:27 IMPRESSION: 1. Nonspecific bowel gas pattern with distended small bowel loops with air-fluid levels, most likely ileus. 2: Fecal impaction of the rectum. Abdomen/Pelvis CT 07/08/19 12:54 IMPRESSION: 1. Moderate retained fecal material in the rectum and distal colon with infiltration of the perirectal fat, suspicious for a stercoral proctitis. Upper Quadrant Ultrasound 07/09/19 09:33 IMPRESSION: 1: Nodular appearance to the liver surface, suspicious for cirrhosis. Correlate clinically. Labs Labs: Laboratory Results - last 24 hr 07/11/19 07/11/19 06:24 06:24 WBC 9.3 RBC 4.39 Hgb 12.4 Hct 38.3 MCV 87.2 MCH 28.2 MCHC 32.4 RDW 14.6 H Plt Count 307 MPV 10.3 Immature Gran % (Auto) 0.5 Neut % (Auto) 73.7 H Lymph % (Auto) 17.1 L [place] % (Auto) 7.5 Eos % (Auto) 1.0 Baso % (Auto) 0.2 Lymph
[2019-07-11] MEDS: SACCHAROMYCES BOULARDII 250 MG CAPSULE PO (12:32)
--- NOTE | 2019-07-11 15:00 | PM.DS ---
DS: Diagnosis Admitting Diagnosis Admitting Diagnosis: Constipation, unspecified Discharge Diagnosis (1) Constipation: Qualifiers: Constipation type: unspecified constipation type Qualified Code(s): K59.00 - Constipation, unspecified Code(s): K59.00 - Constipation, unspecified Status: Acute Assessment and Plan: Possibly aggravated by her rectal pain and unwillingness to take laxatives or stool softeners Topical analgesics for rectal pain Dulcolax sennosides, MiraLax Large BM 07/09 and loose stool this am 07/10 . will d/c home on MiraLax 17 g daily (2) Rectal pain: Code(s): K62.89 - Other specified diseases of anus and rectum Status: Acute Assessment and Plan: Hemorrhoids versus local irritation versus fissure Topical lidocaine Softeners and laxatives Has had colonoscopy within the last 5 years. She will follow-up with Dr. Nolan and at least probable repeat at least sigmoidoscope in the near future (3) Transaminitis: Code(s): R74.0 - Nonspecific elevation of levels of transaminase and lactic acid dehydrogenase [LDH] Status: Acute Assessment and Plan: Hepatitis C antibody positive with RNA pending Ultrasound abdomen suspicious for cirrhosis Will need outpatient follow-up Dr Nolan to arrange hepatology clinic at [facility] DS: Summary Hospital Course Hospital Course: 84-year-old white female admitted with abdominal pain and constipation. CT revealed copious stool. With laxatives she did have bowel movements and relief of her symptomatology although continued rectal pain. It was felt she either had SC tender or fissures and was treated symptomatically. LFTs were elevated and hepatitis C antibody was positive with [facility] confirmatory test pending She will follow-up with her primary as well as Dr. Nolan Time Spent with Patient Time attestation: Total time spent providing and/or coordinating discharge services: 35 minutes Exam Narrative: Exam Narrative: Condition on discharge Blood pressure 140/86 pulse 96 saturating room air afebrile Lungs clear CV rate rhythm Abdomen soft nontender no masses bowel sounds normal active Extremities edema distal pulse 2 Alert focal deficits DS: Data Data Completed and Pending Labs on day of discharge: Labs from last 24 hours 07/11/19 07/11/19 07/09/19 06:24 06:24 05:42 WBC 9.3 RBC 4.39 Hgb 12.4 Hct 38.3 MCV 87.2 MCH 28.2 MCHC 32.4 RDW 14.6 H Plt Count 307 MPV 10.3 Immature Gran % (Auto) 0.5 Neut % (Auto) 73.7 H Lymph % (Auto) 17.1 L [place] % (Auto) 7.5 Eos % (Auto) 1.0 Baso % (Auto) 0.2 Lymph # (Auto) 1.59 [place] # (Auto) 0.7 H Eos # (Auto) 0.1 Baso # (Auto) 0.0 Abs Immat Gran (auto) 0.05 H Absolute Neuts (auto) 6.8 H Absolute Nucleated RBC 0.0 Nucleated RBC % 0.0 Sodium 137 Potassium 3.9 Chloride 106 Carbon Dioxide 22 BUN 10 Creatinine 0.70 Estim Creat Clear Calc 45 Estimated GFR > 60 Glucose 93 Calcium 9.5 Total Bilirubin 1.0 AST 132 H ALT 180 H Alkaline Phosphatase 841 H Total Protein 7.0 Albumin 3.8 HCV RNA (PCR) IUs/ml Pending HCV RNA PCR log IUs/ml Pending Discharge Plan Discharge Attending physician on discharge: Pete Schneider Consulting providers: Scotty Nolan Discharging Clinician: Pete Schneider Patient Disposition: Home, Self-Care Activity: as tolerated Diet: regular Patient Instructions: Antibiotic Form Stand Alone Forms: General Discharge Information Follow-up/Referrals: Scotty Nolan MD [Physician] - 3 Weeks [facility],MD Brian [Primary Care Provider] - 2 Weeks Discharge Medications: New polyethylene glycol 3350 [Miralax] 17 gram Powder In Packet 17 g PO QAM 30 Days Qty: 258 RF: 0 hydrocortisone acetate [Anusol-HC] 25 mg Suppository 25 mg DE Q12HR PRN (Reason: Rectal pain) Qty: 24 RF: 0 Prepar
[2019-07-12 21:53] LABS: Hepatitis C RNA, Quant PCR <15 IU/mL
== END 2019-07-11 13:40 | disposition home or self-care (01) ==
LOC: ANHED 17:05 → ANH3MEDSUR 17:24
PROVIDERS: Emergency Medicine Emergency Medical Services; Physician Assistant; Admitting Provider Hospitalist; Emergency Provider Emergency Medicine; PCP Family Medicine; Visit Provider Internal Medicine
DX: K59.00 Constipation, unspecified (principal); K62.89 Other specified diseases of anus and rectum; R74.0 Nonspecific elevation of levels of transaminase and lactic acid dehydrogenase [LDH]; B19.20 Unspecified viral hepatitis C without hepatic coma; I25.10 Atherosclerotic heart disease of native coronary artery without angina pectoris; I10 Essential (primary) hypertension; E78.5 Hyperlipidemia, unspecified; M81.0 Age-related osteoporosis without current pathological fracture; M19.90 Unspecified osteoarthritis, unspecified site; Z79.82 Long term (current) use of aspirin; Z79.899 Other long term (current) drug therapy; Z86.010 Personal history of colon polyps; Z87.891 Personal history of nicotine dependence
CPT/HCPCS: 36415; 74019; 74177; 76705; 80053; 80074; 80307; 81001; 83605; 83690; 84443; 85025; 85610; 85730; 87086; 87088; 87522; 96361; 96365; 96367; 96374; 97161; 97165; 99285; A9270; G0378; J0131; J1741; J7030; J7120; Q9967

== ENCOUNTER 2019-08-02 13:30 | Outpatient (CLI) | payer MEDICARE, MEDICAID, SELFPAY ==
[2019-08-02 14:32] LABS: Alanine Aminotransferase 82 U/L (4-35); Albumin Level 3.6 g/dL (3.5-5.1); Alkaline Phosphatase 387 U/L (38-126); Aspartate Amino Transferase 70 U/L (14-36); Bilirubin,Total 0.2 mg/dL (0.2-1.3)
== END 2019-08-02 13:31 | disposition home or self-care (01) ==
LOC: ANHLAB 13:44
PROVIDERS: PCP Family Medicine; Visit Provider Internal Medicine Gastroenterology
DX: R74.8 Abnormal levels of other serum enzymes (principal)
CPT/HCPCS: 36415; 80076

== ENCOUNTER 2019-08-16 15:36 | Outpatient (CLI) | payer MEDICARE, SELFPAY ==
[2019-08-16 16:10] LABS: Hemoglobin 10.9 g/dL (12.0-15.0); Mean Corpuscular HGB Conc 32.1 g/dl (32-36); Mean Corpuscular Hemoglobin 29.1 pg (26-34); Mean Corpuscular Volume 90.7 fl (80-100); Mean Platelet Volume 9.9 fl (7.4-10.4); Platelet Count Result 188 k/mm3 (150-375); Red Blood Count 3.75 M/mm3 (4.2-5.4); Red Cell Distribution Width 14.1 % (11.5-14.5); White Blood Count 4.1 K/mm3 (4.5-10.0)
[2019-08-16 16:20] LABS: Prothrombin Time 12.6 Seconds (11.1-14.7)
[2019-08-16 16:23] LABS: Alanine Aminotransferase 34 U/L (4-35); Albumin Level 3.8 g/dL (3.5-5.1); Alkaline Phosphatase 241 U/L (38-126); Aspartate Amino Transferase 39 U/L (14-36); Bilirubin,Total 0.3 mg/dL (0.2-1.3); Blood Urea Nitrogen 11 mg/dL (7-17); Calcium 9.3 mg/dL (8.4-10.2); Carbon Dioxide 31 mmol/L (22-30); Chloride 106 mmol/L (98-107); Estimated Glomerular Filt Rate > 60; Glucose 88 mg/dL (65-105); Potassium 3.8 mmol/L (3.4-5.0); Sodium 141 mmol/L (137-145)
[2019-08-19 12:10] LABS: Actin Antibody (IgG) <20 U (<20)
[2019-08-20 11:04] LABS: Mitochondrial (M2) Ab (IgG) <=20.0 U (<=20.0)
== END 2019-08-16 15:37 | disposition home or self-care (01) ==
LOC: ANHLAB 15:40
PROVIDERS: PCP Family Medicine; Visit Provider Internal Medicine Gastroenterology
DX: R74.8 Abnormal levels of other serum enzymes (principal); K74.60 Unspecified cirrhosis of liver; R93.2 Abnormal findings on diagnostic imaging of liver and biliary tract
CPT/HCPCS: 36415; 80053; 82728; 83516; 83520; 85027; 85610

== ENCOUNTER 2019-08-21 07:23 | Outpatient (CLI) | payer MEDICARE, SELFPAY ==
--- NOTE | ~2019-08-21 | MM_ITS ---
EXAMINATION: MM screening anne BI w stephanie HISTORY: Screening mammogram TECHNIQUE: Craniocaudal and mediolateral oblique 3-D tomosynthesis images were obtained and synthetic 2-D images were generated. CAD analysis was submitted and interpreted. COMPARISON: Comparison to multiple prior studies sequentially, with oldest reviewed study dated 02/16. BREAST PARENCHYMAL COMPOSITION: There are scattered areas of fibroglandular density. FINDINGS: There is no evidence of suspicious mass, calcification, or architectural distortion to sugg est malignancy in either breast. There has been no suspicious interval change. IMPRESSION: 1. No mammographic evidence of malignancy. 2. Recommend routine screening mammography in one year. BI-RADS Category 1: Negative Reviewed, dictated and finalized at location A.
== END 2019-08-21 07:24 | disposition home or self-care (01) ==
LOC: ANHIMG 07:29
PROVIDERS: PCP Family Medicine; Visit Provider Family Medicine
DX: Z12.31 Encounter for screening mammogram for malignant neoplasm of breast (principal)
CPT/HCPCS: 77063; 77067

== ENCOUNTER 2019-09-20 12:19 | Outpatient (CLI) | payer MEDICARE, SELFPAY ==
[2019-09-20 13:07] LABS: Alanine Aminotransferase 52 U/L (4-35); Albumin Level 3.9 g/dL (3.5-5.1); Alkaline Phosphatase 214 U/L (38-126); Aspartate Amino Transferase 43 U/L (14-36); Bilirubin,Total 0.4 mg/dL (0.2-1.3); Blood Urea Nitrogen 14 mg/dL (7-17); Calcium 9.3 mg/dL (8.4-10.2); Carbon Dioxide 28 mmol/L (22-30); Chloride 108 mmol/L (98-107); Estimated Glomerular Filt Rate > 60; Glucose 79 mg/dL (65-105); Potassium 4.8 mmol/L (3.4-5.0); Sodium 138 mmol/L (137-145)
[2019-09-20 13:24] LABS: Hematocrit 34.9 % (37.0-47.0); Hemoglobin 10.9 g/dL (12.0-15.0); Mean Corpuscular HGB Conc 31.2 g/dl (32-36); Mean Corpuscular Hemoglobin 29.1 pg (26-34); Mean Corpuscular Volume 93.1 fl (80-100); Mean Platelet Volume 10.9 fl (7.4-10.4); Platelet Count Result 204 k/mm3 (150-375); Red Blood Count 3.75 M/mm3 (4.2-5.4); Red Cell Distribution Width 14.5 % (11.5-14.5); White Blood Count 4.1 K/mm3 (4.5-10.0)
== END 2019-09-20 12:20 | disposition home or self-care (01) ==
PROVIDERS: PCP Family Medicine; Visit Provider Internal Medicine Gastroenterology
DX: D64.9 Anemia, unspecified (principal)
CPT/HCPCS: 36415; 80053; 85027

== ENCOUNTER 2020-01-16 08:09 | Outpatient (CLI) | payer MEDICARE, MEDICAID, SELFPAY ==
--- NOTE | ~2020-01-16 | US_ITS ---
EXAMINATION: US art doppler w press LE DATE: 01/16/2020 09:04 INDICATION: Peripheral vascular disease. TECHNIQUE: Segmental pressures and plethysmographic and Doppler waveforms of the brachial and lower e xtremity arteries were obtained. COMPARISON: None. FINDINGS: Right and left brachial artery pressures of 133 mm Hg and 132 mm Hg, respectively, are concordant (no rmal difference <= 30 mmHg). The right high-thigh pressure index is 1.14 (normal > 1.2). The right ankle-brachial index (VANNESA) is 1 .27 (normal >= 0.9-1.0). The right great toe-brachial index (TBI) is 1.02 (normal >= 0.65). Arterial Doppler waveforms are at least biphasic from common femoral artery to the ankle. The left high-thigh pressure index is 1.25. The left VANNESA could not be measured due to inability to cu ff-occlude the arteries. The left TBI is 0.97. Arterial Doppler waveforms are at least triphasic in c ommon femoral artery and at least biphasic from superficial femoral artery to the ankle. IMPRESSION: 1. No significant arterial occlusive disease. Reviewed, dictated and finalized at location A.
== END 2020-01-16 08:10 | disposition home or self-care (01) ==
LOC: ANHIMG 08:10
PROVIDERS: PCP Family Medicine; Visit Provider Family Medicine
DX: I73.9 Peripheral vascular disease, unspecified (principal)
CPT/HCPCS: 93923

== ENCOUNTER 2020-09-30 08:58 | Outpatient (CLI) | payer MEDICARE, MEDICAID, SELFPAY ==
--- NOTE | ~2020-09-30 | CT_ITS ---
EXAMINATION: CT brain wo con DATE: 09/30/2020 09:33 INDICATION: Chronic headache TECHNIQUE: Computed tomography (CT) of the head was performed without intravenous contrast. The dose- length product was 605.33 mGy-cm. Automated exposure control and iterative reconstruction technique w ere employed. COMPARISON: None FINDINGS: Generalized atrophy. There are scattered mild periventricular and subcortical white matter changes, most likely related to small vessel ischemic disease (microangiopathy). No ventriculomegaly or midline shift. There is intracranial atherosclerosis. There is intracranial atherosclerosis. No acute intracranial hemorrhage, infarction, mass or mass effect. IMPRESSION: 1. No acute intracranial abnormality. 2: Chronic age-related findings. Reviewed, dictated and finalized at location A.
--- NOTE | ~2020-09-30 | XR_ITS ---
EXAMINATION: XR chest 2V 09/30/2020 09:37 INDICATION: Ex-smoker PROCEDURE: 2 view chest COMPARISON: Comparison to multiple prior studies sequentially, with oldest reviewed study dated 02/16. FINDINGS: The lungs are clear. The cardiomediastinal silhouette is within normal limits. There are no pleural effusions. There is no pneumothorax suspected. The lungs are hyperinflated which is consistent with, but not diagnostic of chronic obstructive pulmo nary disease. Stable benign-appearing sclerotic lesion of the left humeral neck. IMPRESSION: 1: NO ACUTE CARDIOPULMONARY DISEASE. Reviewed, dictated and finalized at location A.
== END 2020-09-30 08:59 | disposition home or self-care (01) ==
PROVIDERS: PCP Family Medicine; Visit Provider Family Medicine
DX: Z87.891 Personal history of nicotine dependence (principal); R51.9 Headache, unspecified
CPT/HCPCS: 70450; 71046

== ENCOUNTER 2021-04-14 09:51 | Outpatient (CLI) | payer MEDICARE, MEDICAID, SELFPAY ==
--- NOTE | ~2021-04-14 | MM_ITS ---
EXAMINATION: MM screening anne BI w stephanie HISTORY: Screening TECHNIQUE: Craniocaudal and mediolateral oblique 3-D tomosynthesis images were obtained and synthetic 2-D images were generated. CAD analysis was submitted and interpreted. COMPARISON: Comparison to multiple prior studies sequentially, with oldest reviewed study dated 02/16. BREAST PARENCHYMAL COMPOSITION: There are scattered areas of fibroglandular density. FINDINGS: There is no evidence of suspicious mass, calcification, or architectural distortion to sugg est malignancy in either breast. There has been no suspicious interval change. IMPRESSION: 1. No mammographic evidence of malignancy. 2. Recommend routine screening mammography in one year. BI-RADS Category 1: Negative Reviewed, dictated and finalized at location A. [employer]
== END 2021-04-14 09:52 | disposition home or self-care (01) ==
LOC: ANHIMG 09:54
PROVIDERS: PCP Family Medicine; Visit Provider Family Medicine
DX: Z12.31 Encounter for screening mammogram for malignant neoplasm of breast (principal)
CPT/HCPCS: 77063; 77067

== ENCOUNTER 2021-09-07 09:01 | Outpatient (CLI) | payer MEDICARE, MEDICAID, SELFPAY ==
--- NOTE | ~2021-09-07 | DEXA_ITS ---
Bone Density Report Name: HEATHER HARRIS Age: 86 Sex: Female Ethnicity: Black Date of : 1935 Indication: postmenopausal osteoporosis; monitoring treatment; height loss; prior fracture; hysterectomy; Referring Provider: RU, REJI Piña Study: Bone densitometry was performed. Exam Date: September 07, 2021 Accession number: [id number] Bone Density: Region BMD T-score Z-score Classification AP Spine(L1-L4) 0.804 -2.2 Osteopenia Femoral Neck (Left) 0.654 -1.8 Osteopenia Total Hip (Left) 0.598 -2.8 Osteoporosis World Health Organization criteria for BMD impression classify patients as: Normal (T-score at or above -1.0), Osteopenia (T-score between -1.0 and -2.5), or Osteoporosis (T-score at or below -2.5). 10-year Fracture Risk: FRAX not reported because: Some T-score for Spine Total or Hip Total or Femoral Neck at or below -2.5 Prior hip or vertebral fracture Treated for osteoporosis Previous Exams: Region Exam Age BMD T-score BMD Change BMD Change Date g/cm2 vs Baseline vs Previous AP Spine (L1-L4) 09/07/2021 86 0.804 -2.2 0.065 (8.9%)# 0.022 (2.8%) 05/08/2019 84 0.782 -2.4 0.044 (6.0%)# 0.024 (3.1%)* 09/30/2015 80 0.758 -2.6 0.020 (2.7%)# 0.020 (2.7%)# 08/20/2013 78 0.738 -2.8 Total Hip(Left) 09/07/2021 86 0.598 -2.8 -0.021 (-3.4%) -0.043 (-6.7%) 05/08/2019 84 0.641 -2.5 0.022 (3.6%)# 0.022 (3.5%) 09/30/2015 80 0.619 -2.6 0.001 (0.1%)# 0.001 (0.1%)# 08/20/2013 78 0.618 -2.7 *Denotes significance at 95% confidence level, LSC for AP Spine = 0.022 g/cm2, LSC for Total Hip = 0.027 g/cm2 # Denotes dissimilar scan types or analysis methods Clinical Information Provided by Patient: Have had a previous hip or vertebral fracture Has had a low trauma fracture Is being treated for osteoporosis Has used the following medications: Vitamin D, Calcium Has the following medical conditions: Hysterectomy Patient maximum height was 64 Menopause Age: 35 No regular weight bearing exercise Drinks caffeinated beverages Onset of menses at age 15 Number of children 1 Impression: The patient has established osteoporosis, based on the Left Total Hip T-score and the existence of a prior fracture. The patient has risk factors, including: previous fracture. The BMD for the Total Hip(Left) decreased, changing by -6.7% since the last DXA exam. Discussion: SIGNIFICANT BONE LOSS OBSERVED. Adherence to therapy (including calcium and vitamin D intake) should be assessed. If compliance
== END 2021-09-07 09:02 | disposition home or self-care (01) ==
PROVIDERS: PCP Family Medicine; Visit Provider Nurse Practitioner Family
DX: M81.0 Age-related osteoporosis without current pathological fracture (principal); M85.88 Other specified disorders of bone density and structure, other site; M85.852 Other specified disorders of bone density and structure, left thigh
CPT/HCPCS: 77080

== ENCOUNTER 2022-01-14 05:46 | Emergency (ER) | payer MEDICARE, MEDICAID, SELFPAY ==
--- NOTE | 2022-01-14 06:05 | ED.GENADULT ---
HPI - General Adult General Chief complaint: Unspecified Stated complaint: TONGUE REDNESS Time Seen by Provider: 01/14/22 05:56 History of Present Illness HPI narrative: 86-year-old female presenting to the emergency department for evaluation of some blood on her tongue. Patient states when she woke up this morning and she went to brush her teeth she noticed that her tongue was bloody. Patient states that she did brush her tongue more and felt that the bleeding was improving. Patient states upon arrival to the ED that the bleeding has resolved. Patient denies any current bleeding. Patient is not on any blood thinners. Patient denies any tongue pain. Patient felt she was having some sinus drainage but has no active epistaxis. Related Data Home Medications Medication Instructions Recorded Confirmed atorvastatin 80 mg tablet 40 mg PO DAILY 06/22/19 07/08/19 Calcium 600 + D(3) 1 tablet BYMOUTH DAILY 07/08/19 07/08/19 Probiotic 1 tablet BYMOUTH DAILY 07/08/19 07/08/19 aspirin 81 mg chewable tablet 81 mg PO DAILY 07/08/19 07/08/19 isosorbide mononitrate 30 mg 15 mg PO DAILY 07/08/19 07/08/19 tablet,extended release 24 hr Allergies Allergy/AdvReac Type Severity Reaction Status Date / Time No Known Allergies Allergy Unverified 03/06/18 06:31 Review of Systems Review of Systems: CONSTITUTIONAL: Denies fever, chills, or sweats. EYES: Denies visual changes, redness, or discharge. ENT: Denies rhinorrhea, congestion, sore throat, or otalgia. See HPI CARDIOVASCULAR: Denies chest pain, palpitations, or edema. RESPIRATORY: Denies cough or dyspnea. GASTROINTESTINAL: Denies abdominal pain, nausea, vomiting, or diarrhea. GENITOURINARY: Denies dysuria or hematuria. SKIN: Denies rash or itching. MUSCULOSKELETAL: Denies back pain, joint pain, or myalgia. NEUROLOGIC: Denies headache, numbness, or weakness. [facility] Past Medical History Medical History (Updated 01/14/22 @ 06:10 by Evan Singletary MD) Arthritis Hip fracture, right Hyperlipidemia Hypertension Mild coronary artery disease : Patient notes mild coronary disease on prior cardiac catheterization per Dr. Thomas. No intervention required. Osteoporosis Surgical History Surgical History History of appendectomy History of cardiac catheterization History of colonoscopy History of hip surgery History of hysterectomy History of inguinal hernia repair Family History Family History Mother Hypertension Patient's mother is in good health Other Cerebrovascular accident Diabetes mellitus Family history of cardiovascular disease Social History Social History Social History: The patient lives in her own home in [place], [place]. 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 She has 1 daughter who lives in [place]. Her daughter, Katya Haider, is her surrogate decision maker and she wishes to be a full code. She smoked for short period of time remotely. No alcohol or drug use. Smoking packs per day: 0.25 Smoking cigarettes per day: 5.0 Smoking status: Former smoker Tobacco type: cigarettes Second hand tobacco smoke exposure: Yes Smoking end date: 04/18/00 Spiritual care concerns: No Agree to blood products: Yes Exam Narrative: APPEARANCE: Well appearing, no pain, no distress, well-nourished. HEAD: normocephalic, atraumatic. EYES: PERRLA/EOMI, conjunctivae clear. NOSE: Normal no drainage EARS:TMS clear with good light reflex. THROAT: Pharynx clear, no exudate. No active bleeding. Possible area on the left posterior tongue where she may have bit the tongue NECK: Supple. No adenopathy, no masses. RESPIRATORY: Airway patent, respirations nonlabored. Clear to auscultation bilaterally, no rales, rhonchi, wheezing. CARDIOVASCULAR: Regular rate and rhythm without murmurs rubs or gallops.
[2022-01-14 06:28] VITALS: BP 140/77; PULSE 88; RESP 16; O2SAT 100
== END 2022-01-14 06:28 | disposition home or self-care (01) ==
LOC: ANHED 06:11
PROVIDERS: Emergency Provider Emergency Medicine; PCP Family Medicine
DX: K13.70 Unspecified lesions of oral mucosa (principal); I25.10 Atherosclerotic heart disease of native coronary artery without angina pectoris; I10 Essential (primary) hypertension; E78.5 Hyperlipidemia, unspecified; M19.90 Unspecified osteoarthritis, unspecified site; M81.0 Age-related osteoporosis without current pathological fracture; Z79.82 Long term (current) use of aspirin; Z90.710 Acquired absence of both cervix and uterus; Z87.891 Personal history of nicotine dependence
CPT/HCPCS: 99282

== ENCOUNTER 2022-02-16 19:18 | Emergency (ER) | payer MEDICARE, MEDICAID, SELFPAY ==
[2022-02-16 19:30] VITALS: BP 158/77; PULSE 60; RESP 18; TEMP 35.9; O2SAT 100
--- NOTE | 2022-02-16 19:40 | ED.GENADULT ---
HPI - General Adult General Stated complaint: Pain Time Seen by Provider: 02/16/22 19:43 Mode of arrival: ambulatory Limitations: no limitations History of Present Illness HPI narrative: 86-year-old female presents with concern for possible issues with her heart. She reports she noticed a vein on her right wrist is less old in usual. She denies any pain or injury to that area. She denies chest pain, shortness of breath, swelling in any extremity. She reports she has a history of coronary artery disease and follows up regularly with a billing and accounting staff assistant. She denies any changes in her medications. She reports ?she just wants to have her heart within to make sure it is okay?. She has an appointment with a new primary care provider upcoming. She reports some history of a tingling sensation on her forehead and in her legs that has went away. complaint: Concerns for her heart Related Data Home Medications Medication Instructions Recorded Confirmed aspirin 81 mg chewable tablet 81 mg PO DAILY 07/08/19 07/08/19 isosorbide mononitrate 30 mg 15 mg PO DAILY 07/08/19 07/08/19 tablet,extended release 24 hr metoprolol succinate 25 mg 25 mg PO DAILY 02/16/22 02/16/22 tablet,extended release 24 hr Allergies Allergy/AdvReac Type Severity Reaction Status Date / Time No Known Allergies Allergy Verified 02/16/22 19:44 Review of Systems Review of Systems: CONSTITUTIONAL: Denies malaise, chills, sweats, or fever. EYES: Denies visual changes, redness, or discharge. ENT: Denies rhinorrhea, congestion, sinus pain, otalgia or sore throat. CARDIOVASCULAR: Denies chest pain, palpitations, or edema. RESPIRATORY: Denies cough or dyspnea. GASTROINTESTINAL: Denies abdominal pain, nausea, vomiting, diarrhea, bloody, or mucous stools. GENITOURINARY: Denies dysuria or hematuria. SKIN: Denies rash or itching. MUSCULOSKELETAL: Denies back pain, joint pain, or myalgia. NEUROLOGIC: Denies numbness, weakness, or headache. PSYCHIATRIC: Denies anxiety or depression. All systems reviewed & are unremarkable except as noted in HPI and below [facility] Past Medical History Medical History (Updated 02/16/22 @ 20:01 by Arleth Garcia NP) Arthritis Hip fracture, right Hyperlipidemia Hypertension Mild coronary artery disease : Patient notes mild coronary disease on prior cardiac catheterization per Dr. Thomas. No intervention required. Osteoporosis Surgical History Surgical History History of appendectomy History of cardiac catheterization History of colonoscopy History of hip surgery History of hysterectomy History of inguinal hernia repair Family History Family History Mother Hypertension Patient's mother is in good health Other Cerebrovascular accident Diabetes mellitus Family history of cardiovascular disease Social History Social History Social History: The patient lives in her own home in [place], [place]. 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 She has 1 daughter who lives in [place]. Her daughter, Katya Haider, is her surrogate decision maker and she wishes to be a full code. She smoked for short period of time remotely. No alcohol or drug use. Smoking packs per day: 0.25 Smoking cigarettes per day: 5.0 Smoking status: Former smoker Tobacco type: cigarettes Second hand tobacco smoke exposure: Yes Smoking end date: 04/18/00 Spiritual care concerns: No Agree to blood products: Yes Comments At time of signature, agree with nursing past medical, surgical, social and family history. There is no relevant family history pertinent to the presenting complaint Exam Narrative: GENERAL: Well-appearing, well-nourished, and in no acute distress. HEAD: Normocephalic, atraumatic. EYES: PERRLA, sclera clear, and EOMI. No nystagmus. ENT: Nares clear, turbina
== END 2022-02-16 20:00 | disposition home or self-care (01) ==
PROVIDERS: Emergency Provider Nurse Practitioner; PCP Family Medicine
DX: Z71.1 Person with feared health complaint in whom no diagnosis is made (principal); I25.10 Atherosclerotic heart disease of native coronary artery without angina pectoris; E78.5 Hyperlipidemia, unspecified; I10 Essential (primary) hypertension; Z87.891 Personal history of nicotine dependence
CPT/HCPCS: 99211; G0463

== ENCOUNTER 2022-06-03 07:53 | Outpatient (CLI) | payer MEDICARE, MEDICAID, SELFPAY ==
--- NOTE | ~2022-06-03 | MM_ITS ---
EXAMINATION: MM screening anne BI w stephanie HISTORY: Screening mammogram TECHNIQUE: Craniocaudal and mediolateral oblique 3-D tomosynthesis images were obtained and synthetic 2-D images were generated. CAD analysis was submitted and interpreted. COMPARISON: 04/14/2021, 08/21/2019 07/07/2018 bilateral screening mammogram examinations BREAST PARENCHYMAL COMPOSITION: There are scattered areas of fibroglandular density. FINDINGS: There is no evidence of suspicious mass, calcification, or architectural distortion to sugg est malignancy in either breast. There has been no suspicious interval change. IMPRESSION: 1. No mammographic evidence of malignancy. 2. Recommend routine screening mammography in one year. BI-RADS Category 1: Negative Reviewed, dictated and finalized at location A. ATRIC SURGEON
== END 2022-06-03 07:54 | disposition home or self-care (01) ==
PROVIDERS: PCP Family Medicine; Visit Provider Family Medicine
DX: Z12.31 Encounter for screening mammogram for malignant neoplasm of breast (principal)
CPT/HCPCS: 77063; 77067

== ENCOUNTER 2023-06-02 14:23 | Outpatient (CLI) | payer MEDICARE, MEDICAID, SELFPAY ==
--- NOTE | 2023-06-02 14:43 | ECHO_ITS ---
Patient Info Name: Carmella Garcia Age: 88 years : 1935 Gender: Female Ht: 63 in Wt: 130 lbs BSA: 1.63 m2 HR: 68 bpm BP: 155 / 103 mmHg Heart Rhythm: Sinus Rhythm Technical Quality: Good Exam Date: 06/02/2023 3:03 PM Exam Location: Echo Lab Patient Status: Outpatient Admit Date: 06/02/2023 Staff Ordering Physician: Jean Gracia DO Service Delivery Management Consultant: Dorene Fritz RDCS Attending Provider: Jean Gracia DO Referring Physician: Basil GONZALEZ; Exam Type: CA echo doppler color flow Study Info Indications - nonrehumatic aortic valve stenosis Complete two-dimensional, color flow and Doppler transthoracic echocardiogram is performed. Summary 1. Complete two-dimensional, color flow and Doppler transthoracic echocardiogram is performed. 2. Left ventricular chamber dimension is normal. 3. Ventricular septum is sigmoid shaped at 1.6 cm, consider hypertrophic cardiomyopathy. No resting LVOT obstruction. 4. Left ventricular systolic function is hyperdynamic, estimated at >70%. 5. There is moderate asymmetric septal increased left ventricular wall thickness. 6. The left ventricular diastolic function is grade I diastolic dysfunction. 7. E/e' 10 is mildly elevated. 8. There is mild aortic valve sclerosis. 9. There is trace tricuspid valve regurgitation. 10. No pulmonary hypertension, estimated pulmonary arterial systolic pressure is 39 mmHg. 11. There is trace pulmonic regurgitation. Left Ventricle E/e' 10 is mildly elevated. Ventricular septum is sigmoid shaped at 1.6 cm, consider hypertrophic cardiomyopathy. No resting LVOT obstruction. Left ventricular chamber dimension is normal. Left ventricular systolic function is hyperdynamic, estimated at >70%. There is moderate asymmetric septal increased left ventricular wall thickness. The left ventricular diastolic function is grade I diastolic dysfunction. Right Ventricle Right ventricular systolic function is normal and with normal TAPSE 2.9 cm. Right ventricular chamber dimension is normal. Left Atria Left atrial chamber dimension is normal. Right Atria Right atrial chamber dimension is normal. Aortic Valve The aortic valve is trileaflet. There is mild aortic valve sclerosis. There is no aortic valve stenosis. There is no aortic valve regurgitation. Pulmonic Valve There is trace pulmonic regurgitation. Mitral Valve There is no mitral valve stenosis. There is no mitral valve regurgitation. Tricuspid Valve There is trace tricuspid valve regurgitation. No pulmonary hypertension, estimated pulmonary arterial systolic pressure is 39 mmHg. Pericardium/Pleural There is no pericardial effusion. Inferior Vena Cava Normal inferior vena cava with >50% collapse upon inspiration consistent with normal right atrial pressure, 5 mmHg. Aorta The aortic root size at the sinus of Valsalva is normal. Left Ventricular Outflow Tract Name Value Normal LVOT 2D LVOT Diameter 1.8 cm LVOT Doppler LVOT Peak Gradient 4 mmHg LVOT Mean Gradient 2 mmHg LVOT VTI 26 cm LVOT VTI/AV VTI Ratio 1.0 LVOT Stroke Volume 69 ml
== END 2023-06-02 14:24 | disposition home or self-care (01) ==
LOC: ANHCARD 14:24
PROVIDERS: PCP Nurse Practitioner Family; Visit Provider Internal Medicine Cardiovascular Disease
DX: I35.0 Nonrheumatic aortic (valve) stenosis (principal)
CPT/HCPCS: 93306

== ENCOUNTER 2023-08-02 08:22 | Outpatient (CLI) | payer MEDICARE, MEDICAID, SELFPAY ==
--- NOTE | ~2023-08-02 | MM_ITS ---
EXAMINATION: MM screening anne BI w stephanie HISTORY: Screening TECHNIQUE: Craniocaudal and mediolateral oblique 3-D tomosynthesis images were obtained and synthetic 2-D images were generated. CAD analysis was submitted and interpreted. COMPARISON: Comparison to multiple prior studies sequentially, with oldest reviewed study dated 08/2019. BREAST PARENCHYMAL COMPOSITION: Not dense: There are scattered areas of fibroglandular density. FINDINGS: There is no evidence of suspicious mass, calcification, or architectural distortion to sugg est malignancy in either breast. There has been no suspicious interval change. IMPRESSION: 1. No mammographic evidence of malignancy. 2. Recommend routine screening mammography in one year. BI-RADS Category 1: Negative Reviewed, dictated and finalized at location B.
== END 2023-08-02 08:23 | disposition home or self-care (01) ==
LOC: ANHIMG 08:23
PROVIDERS: PCP Nurse Practitioner Family; Visit Provider Family Medicine
DX: Z12.31 Encounter for screening mammogram for malignant neoplasm of breast (principal)
CPT/HCPCS: 77063; 77067

== ENCOUNTER 2025-01-07 10:02 | Outpatient (CLI) | payer MEDICARE, MEDICAID, SELFPAY ==
--- OUTSIDE RECORDS SUMMARY | 2007-05-11 04:16 | XMS_ITS | Continuity of Care Document ---
Author Organization [facility] Address [address] [place] [address] Phone Care Team Providers Care Associate Team Physician Name Role Phone Dunlap OD, Scotty Unavailable Unavailable Procedures Procedure Date Eye Exam & Treatment Eye Exam & Treatment Advance Directives Directive Yes / No Effective Date File Name No Information Encounters Encounter Description Practice Location Reason(s) For Visit Diagnoses Date Provider Providers Copied on Encounter [facility], [address] [place] [address] [address], [place], [place], [id number], tel:[phone] [facility] No Information 4-200 8 Dunlap OD Scotty. [address] , [address], [place], [place], [facility] [facility], . tel:[phone] [facility], [address] [place] [address] [address], [place], [place], [id number], tel:[phone] [facility] No Information 8-200 7 Dunlap OD Scotty. [address] , [address], [place], [place], [facility], [place]. tel:[phone] Family History Family Member Type Diagnosis Age At Onset No Information Payers Payer name Insurance type Covered green party ID Authoriza tion(s) Medicare [facility] [id number] Social History Type Description Quantity Date Captured [...]
--- NOTE | ~2025-01-07 | MM_ITS ---
EXAMINATION: MM screening [facility] BI w stephanie HISTORY: Screening TECHNIQUE: Craniocaudal and mediolateral oblique 3-D tomosynthesis images were obtained and synthetic 2-D images were generated. CAD analysis was submitted and interpreted. COMPARISON: Comparison to multiple prior studies sequentially, with oldest reviewed study dated 07/07/2018. BREAST PARENCHYMAL COMPOSITION: The breasts are almost entirely fatty. FINDINGS: There is no evidence of suspicious mass, calcification, or architectural distortion to suggest malignancy in either breast. Scattered benign-appearing calcifications are present. IMPRESSION: 1. No mammographic evidence of malignancy. 2. Recommend routine screening mammography in one year. BI-RADS Category 2: Benign finding(s). Reviewed, dictated and finalized at location B.
--- OUTSIDE RECORDS SUMMARY | 2025-01-07 11:10 | XMS_ITS | Clinical Summary ---
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 Gender Identity Not on file Sexual Orientation Not on file Plan of Treatment Health Maintenance Due Date Last Done Comments Hepatitis C Virus (HCV) Screening 1935 TdaP Immunization 1935 Zoster Immunization (1 of 2) 1985 Respiratory Syncytial Virus (RSV) Immunization (Adult) (1 - 1-dose 75+ series) 2010 Pneumococcal Immunization (50+ years) (2 of 2 - PCV20 or PCV21) 06/03/2016 06/03/2015 SARS-COV-2 Immunization ( - season) 2023 Influenza Immunization (#1) 12/17/202412/18, 02/13/2019, 02/28/2018, Additional history exists Pneumococcal Immunization Combined Discontinued 06/03/2015 Hepatitis B Immunization Aged Out No longer eligible based on patient's age to complete this topic Human Papillomavirus (HPV) Immunization Aged Out No longer eligible based on patient's age to complete this topic Meningococcal Immunization (ACWY) Aged Out No longer eligible based on patient's age to complete this topic Rotavirus Immunization Aged Out No lo nger eligible based on patient's age to complete this topic
--- OUTSIDE RECORDS SUMMARY | 2025-01-07 11:10 | XMS_ITS | Clinical Summary ---
Author Organization [facility] Address [address] [place] [id number] Care Team Providers Care Endoscope Technician Name Role Phone Unavailable Primary Care Provider Unavailabl e Social History Tobacco Use Types Packs/Day Years Used Date Smoking Tobacco: Never Assessed Comments Unknown Sex and Gender Information Value Date Recorded Sex Assigned at Not on file Legal Sex Female 7:45 PM CDT Gender Identity Not on file Sexual Orientation Not on file Plan of Treatment Health Maintenance Due Date Last Done Comments DTaP, Tdap and Td Vaccines ( 1 - Tdap) 1954 Pneumococcal Vaccine: 50+ Ye ars (1 of 1 - PCV) 1985 Zoster Vaccines (1 of 2) 1985 RSV Immunization or 60+ Years (1 - 1-dose 75+ series) 2010 COVID-19 Vaccine ( - 2023-2 5 season) 2024 Meningococcal B Vaccine Aged Out No l onger eligible based on patient's age to complete this topic Meningococcal Vaccine Aged Out No carlos jessica eligible based on patient's age to complete this topic RSV Immunizations Under 20 Months Aged Out No longer eligible based on patient's age to complete this topic
== END 2025-01-07 10:03 | disposition home or self-care (01) ==
PROVIDERS: PCP Nurse Practitioner; Visit Provider Nurse Practitioner
DX: Z12.31 Encounter for screening mammogram for malignant neoplasm of breast (principal)
CPT/HCPCS: 77063; 77067

== ENCOUNTER 2025-02-14 14:33 | Outpatient (CLI) | payer MEDICARE, MEDICAID, SELFPAY ==
--- OUTSIDE RECORDS SUMMARY | 2007-05-11 04:16 | XMS_ITS | Continuity of Care Document ---
Author Organization [facility] Address [address] [place] [address] Phone Care Team Providers Care Inspector Fabric Name Role Phone Dunlap OD, Scotty Unavailable Unavailable Procedures Procedure Date Eye Exam & Treatment Eye Exam & Treatment Advance Directives Directive Yes / No Effective Date File Name No Information Encounters Encounter Description Practice Location Reason(s) For Visit Diagnoses Date Provider Providers Copied on Encounter [facility], [address] [place] [address] [address], [place], [place], [id number], tel:[phone] [facility] No Information 4-200 8 Dunlap OD Scotty. [address] , [address], [place], [place], [facility], . tel:[phone] [facility], [address] [place] [address] [address], [place], [place], [id number], tel:[phone] [facility] No Information 8-200 7 Dunlap OD Scotty. [address] , [address], [place], [place], [facility], [place]. tel:[phone] Family History Family Member Type Diagnosis Age At Onset No Information Payers Payer name Insurance type Covered alliance party ID Authoriza tion(s) Medicare [facility] [id number] Social History Type Description Quantity Date Captured Comments Sex Female Smoking Status No Information Chief Complaint And Reason For Visit No Information Reason For Referral Reason For Referral No Information History Of Present Illness Encounter Date Complaint History Of Prese nt Illness No Information Functional Status Date Functional Assessmen t No Information Instructions Date Instruction Additional Infor mation No Information Assessments Type Assessment Date No Information Patient Care Teams Name Effective Dates (start - stop) Status Members No Information
[2025-02-14 15:00] LABS: Hematocrit 35.4 % (37.0-47.0); Hemoglobin 11.5 g/dL (12.0-15.0); Mean Corpuscular HGB Conc 32.5 g/dl (32-36); Mean Corpuscular Hemoglobin 29.6 pg (26-34); Mean Corpuscular Volume 91.2 fl (80-100); Platelet Count Result 190 k/mm3 (150-375); Red Blood Count 3.88 M/mm3 (4.2-5.4); White Blood Count 4.9 K/mm3 (4.5-10.0)
--- OUTSIDE RECORDS SUMMARY | 2025-02-14 15:03 | XMS_ITS | Data Portability ---
Author Organization [facility], [employer] Address [address] [place] [address] Care Team Providers Care Charter Coach Driver Name Role Phone DARRIN PHELPS Speech Clinician [phone] KALIE PACK Primary Care Provider Assessment Encounter Date Assessment Date Assessment LastModified by Organization Details LastModified Time 08/18/2016 08/18/2016 Patient presented for follow up. Studies ordered as below. Discussed plan with patient/careg iver, who expressed understanding . Follow up as noted below. [email or web address] Not available 08/18/2016 10:14:02 10/11/2016 10/11/2016 Patient presented for follow up. Studies ordered as below. Discussed plan with patient/careg iver, who expressed understanding . Follow up as noted below. [email or web address] Not available 10/11/2016 12:13:06 01/11/2017 01/11/2017 Patient presented for follow up. Studies ordered as below. Discussed plan with patient/careg iver, who expressed understanding . Follow up as noted below. [email or web address] Not available 01/11/2017 12:19:19 04/13/2017 04/13/2017 Patient presented for follow up. Studies ordered as below. Discussed plan with patient/careg iver, who expressed understanding . Follow up as noted below. [email or web address] Not available 04/13/2017 10:09:50 Plan of Treatment Reminders Order Date Submit Date Provider Last Modified By Organization Details Last Modified Time Details Appointments None recorded. Lab CBC w/ auto diff 2016 [facility], [facility] Annette Diallo, [address], [place], [address], 8 08:56:16 CMP, serum or plasma 2016 017 [facility], [address], [place], [address], 8 08:56:16 lipid panel, serum 2016 017 [facility], [address], [place], [address], 8 08:56:16 vitamin D, 25-hydroxy , total, serum 2016 017 [facility], [address], [place], [address], 7 08:47:20 CBC w/ auto diff 2016 017 [facility], [address], [place], [address], 7 08:47:20 CMP, serum or plasma 2016 017 [facility], [address], [place], [address], 7 08:47:20 TSH, serum or plasma 2016 017 [facility], [address], [place], [address], 7 08:47:20 D-dimer, quant, plasma 2016 017 R[facility]A [facility], [address], [place], [address], 7 12:28:01 Referral None recorded. Procedures None recorded. Surgeries None recorded. Imaging MAMMO, screening, bilateral 2016 017 [facility], [address], [place], [address], 8 08:51:29 CT, chest, w/o contrast 2016 017 [facility], [facility], [place], [address], 7 16:07:39 XR, ribs, unilateral , 2 view 2016 017 [facility], [address] [place] [address] [address], [place], [address], 7 13:55:40 XR, chest, 2 view [email or web address], [address] [place] [address] [address], [place], [address], 7 17:38:50 US, duplex, venous, lower extremity 2016 017 [facility], [facility] [address], [place], [address], 7 12:10:18 US, duplex, venous, lower extremity 2016 017 [facility], [facility], [place], [address], 7 08:32:09 Medication Orders isosorbide mononitrat e ER 30 mg tablet,ext ended release 24 hr 2016 017 [id number], [address], [id number], 7 10:50:23 sertraline 25 mg tablet 2016 017 [facility][id number], [address], [place], [id number], 7 10:50:24 Mobic 7.5 mg tablet 2016 017 [facility] #[id number], [address], [place], [id number], 7 11:24:33 sertraline 25 mg tablet 2016 017 [facility] #[id number], [address], [place], [id number], 7 11:24:33 Patient TargetsNo targets recorded. Patient Instructions Encounter Date Encounter Id Patient Instructions Last Modified By Organization Details Last Modified Time 07/22/2016 [id number] leg and ankle edema: care instructions ROLA Not available 07/24/2016 14:39:02 08/18/2016 [id number] leg and ankle edema: care instructions ROLA Not available 08/21/2016 16:04:21 10/11/2016 [id number] osteoporosis: care instructions ROLA Not available 10/13/2016 11:53:42 high cholesterol : care instructions ROLA Not available 10/13/2016 11:53:24 01/11/2017 [id number] osteoporosis: care instructions ROLA Not available 01/13/2017 12:21:32 arthritis: care instructions ROLA Not available 01/13/2017 12:21:48 osteoarthritis: care instructions ROLA Not available 01/13/2017 12:21:48 mammogram: about this test ROLA Not available 01/13/2017 12:21:35 high cholesterol : care instructions ROLA Not available 01/13/2017 12:21:45 restless legs syndrome: care instructions ROLA Not available 01/13/2017 12:21:37 bronchiectasis: care instructions ROLA Not available 01/13/2017 12:21:40 04/13/2017 [id number] mammogram: about this test [email or web address] Not available 04/13/2017 10:50:18 osteoporosis: care instructions [email or web address] Not available 04/13/2017 10:50:18 high cholesterol : care instructions [email or web address] Not available 04/13/2017 10:50:18 Reason for Referral None Reported. Results Created Date Observation Date Name Description Value Unit Range Abnormal Flag Note LastModifiedBy Organization Detail LastModifiedTime 05/21/19 17 05/21/2016 pulmo nary funct ion test* pre fev1 Not Available [address], [place], [address], 05/21/2016 10:10:39 05/21/19 17 05/21/2016 pulmo nary funct ion test* post fev1 Not Available [address], [place], [address], 05/21/2016 10:10:39 05/21/19 17 05/21/2016 pulmo nary funct ion test* fev1 Not Available [address] [place], [place], [address], 05/21/2016 10:10:39 05/21/19 17 05/21/2016 pulmo nary funct ion test* pre fef Not Available [address], [place], [address], 05/21/2016 10:10:39 05/21/19 17 05/21/2016 pulmo nary funct ion test* post fef Not Available [address], [place], [address], 05/21/2016 10:10:39 05/21/19 17 05/21/2016 pulmo nary funct ion test* fef Not Available [address], [place], [address], 05/21/2016 10:10:39 07/23/19 17 07/23/2016 D-dim er, quant , plasm a D-dimer, quantitative 0.29 mcg/m L_feu <0.50 normal The D-Dim er test is used frequ ently to exclu de an acute PE or DVT. In patie nts with a low to moder ate clini liberty risk asses sment and a D-Dim er resul t <0.50 mcg/m L FEU, the likel ihood of a PE or DVT is very low. Howev er, a throm boemb olic event shoul d not be exclu ded solel y on the basis of the D-Dim er level . Incre ased level s of D-Dim er are assoc iated with a PE, DVT, DIC, malig alexandre es, infla mmati on, sepsi s, surge ry, traum a, pregn juan, and advan cing patie nt age. [Myke 2006 11:29 5(2): 199-2 07] For addit ional infor taylor de paz e refer to: http: //[facility] briseida rosales stdia gnost ics.c om/fa q/FAQ 149 (This link is being provi ded for infor alessia malhotra/ educa aicha l purpo ses only) Not Available [address] [address] [place], [address], 07/23/2016 12:28:01 12/08/1912/08/2016 CMP, serum or plasm a glucose 86 mg/dL 65-99 normal Fasti ng refer ence inter bolivar Not Available [address] [address] [place], [address], 12/08/2016 04:53:10 12/08/1912/08/2016 CMP, serum or plasm a urea nitrogen (BUN) 16 mg/dL 7-25 normal Not Available [address] [address] [place], [address], 12/08/2016 04:53:10 12/08/1912/08/2016 CMP, serum or plasm a creatinine 0.83 mg/dL 0.60-0 .88 normal For patie nts >49 years of age, the refer ence limit for Creat inine is appro ximat amirah 13% highe r for peopl e ident ified as Afric an-Am esmer n. Not Available [facility] [address] [address] [place], [address], 12/08/2016 04:53:10 12/08/19 17 12/08/2016 CMP, serum or plasm a eGFR non-afr. ivorian 66 mL/mi n/1.7 3m2 > or = 60 normal Not Available [address], [address], 12/08/2016 04:53:10 12/08/19 17 12/08/2016 CMP, serum or plasm a eGFR 77 mL/mi n/1.7 3m2 > or = 60 normal Not Available [address], [address], 12/08/2016 04:53:10 12/08/19 17 12/08/2016 CMP, serum or plasm a BUN/creatini ne ratio NOT APPLIC ABLE (calc ) 6-22 Not Available [address], [address], 12/08/2016 04:53:10 12/08/19 17 12/08/2016 CMP, serum or plasm a sodium 140 mmol/ L 135-14 6 normal Not Available [address], [address], 12/08/2016 04:53:10 12/08/19 17 12/08/2016 CMP, serum or plasm a potassium 4.8 mmol/ L 3.5-5. 3 normal Not Available [address], [address], 12/08/2016 04:53:10 12/08/1912/08/2016 CMP, serum or plasm a chloride 105 mmol/ L 98-110 normal Not Available [facility] [address], [address], 12/08/2016 04:53:10 12/08/19 17 12/08/2016 CMP, serum or plasm a carbon dioxide 31 mmol/ L 20-31 normal Not Available [address], [address], 12/08/2016 04:53:10 12/08/19 17 12/08/2016 CMP, serum or plasm a calcium 9.8 mg/dL 8.6-10 .4 normal Not Available [address], [address], 12/08/2016 04:53:10 12/08/19 17 12/08/2016 CMP, serum or plasm a protein, total 7.0 g/dL 6.1-8. 1 normal Not Available [address], [address], 12/08/2016 04:53:10 12/08/19 17 12/08/2016 CMP, serum or plasm a albumin 4.1 g/dL 3.6-5. 1 normal Not Available [address], [address], 12/08/2016 04:53:10 12/08/19 17 12/08/2016 CMP, serum or plasm a globulin 2.9 g/dL_ (calc ) 1.9-3. 7 normal Not Available [address], [address], 12/08/2016 04:53:10 12/08/19 17 12/08/2016 CMP, serum or plasm a albumin/glob ulin ratio 1.4 (calc ) 1.0-2. 5 normal Not Available [address], [address], 12/08/2016 04:53:10 12/08/19 17 12/08/2016 CMP, serum or plasm a bilirubin, total 0.4 mg/dL 0.2-1. 2 normal Not Available [address], [address], 12/08/2016 04:53:10 12/08/19 17 12/08/2016 CMP, serum or plasm a alkaline phosphatase 82 U/L 33-130 normal Not Available [facility] t [address], [address], 12/08/2016 04:53:10 12/08/19 17 12/08/2016 CMP, serum or plasm a AST 16 U/L 10-35 normal Not Available [address], [address], 12/08/2016 04:53:10 12/08/19 17 12/08/2016 CMP, serum or plasm a ALT 12 U/L 6-29 normal Not Available [address], [address], 12/08/2016 04:53:10 12/08/1912/08/2016 CBC w/ auto diff white blood cell count 4.2 thous and/u L 3.8-10 .8 normal Not Available [facility] [address], [address], 12/08/2016 04:53:10 12/08/1912/08/2016 CBC w/ auto diff red blood cell count 4.43 ines on/uL 3.80-5 .10 normal Not Available [facility] [address], [address], 12/08/2016 04:53:10 12/08/19 17 12/08/2016 CBC w/ auto diff hemoglobin 12.7 g/dL 11.7-1 5.5 normal Not Available [facility] [address], [address], 12/08/2016 04:53:10 12/08/19 17 12/08/2016 CBC w/ auto diff hematocrit 38.4 % 35.0-4 5.0 normal Not Available [facility] [address], [address], 12/08/2016 04:53:10 12/08/1912/08/2016 CBC w/ auto diff MCV 86.7 fL 80.0-1 00.0 normal Not Available [address], [address], 12/08/2016 04:53:10 12/08/19 17 12/08/2016 CBC w/ auto diff MCH 28.7 pg 27.0-3 3.0 normal Not Available [address], [address], 12/08/2016 04:53:10 12/08/19 17 12/08/2016 CBC w/ auto diff MCHC 33.1 g/dL 32.0-3 6.0 normal Not Available [address], [address], 12/08/2016 04:53:10 12/08/1912/08/2016 CBC w/ auto diff RDW 12.4 % 11.0-1 5.0 normal Not Available [address], [address], 12/08/2016 04:53:10 12/08/19 17 12/08/2016 CBC w/ auto diff platelet count 227 thous and/u L 140-40 0 normal Not Available [address], [address], 12/08/2016 04:53:10 12/08/19 17 12/08/2016 CBC w/ auto diff MPV 11.3 fL 7.5-12 .5 normal Not Available [address], [address], 12/08/2016 04:53:10 12/08/1912/08/2016 CBC w/ auto diff absolute neutrophils 2029 cells /uL 1500-7 800 normal Not Available [address], [address], 12/08/2016 04:53:10 12/08/19 17 12/08/2016 CBC w/ auto diff absolute lymphocytes 1743 cells /uL 850-39 00 normal Not Available [address] [place], [address], 12/08/2016 04:53:10 12/08/19 17 12/08/2016 CBC w/ auto diff absolute monocytes 336 cells /uL 200-95 0 normal Not Available [address] [address] [place], [address], 12/08/2016 04:53:10 12/08/1912/08/2016 CBC w/ auto diff absolute eosinophils 71 cells /uL 15-500 normal Not Available [address] [address] [place], [address], 12/08/2016 04:53:10 12/08/1912/08/2016 CBC w/ auto diff absolute basophils 21 cells /uL 0-200 normal Not Available [facility] [address] [address] [place], [address], 12/08/2016 04:53:10 12/08/19 17 12/08/2016 CBC w/ auto diff neutrophils 48.3 % normal Not Available [facility] [address] [address] [place], [address], 12/08/2016 04:53:10 12/08/1912/08/2016 CBC w/ auto diff lymphocytes 41.5 % normal Not Available [address] [address] [place], [address], 12/08/2016 04:53:10 12/08/1912/08/2016 CBC w/ auto diff monocytes 8.0 % normal Not Available [facility] [address] [address] [place], [address], 12/08/2016 04:53:10 12/08/1912/08/2016 CBC w/ auto diff eosinophils 1.7 % normal Not Available [facility] [address] [address] [place], [address], 12/08/2016 04:53:10 12/08/1912/08/2016 CBC w/ auto diff basophils 0.5 % normal Not Available [facility] [address] [address], [place], [address], 12/08/2016 04:53:10 12/08/19 17 12/08/2016 TSH, serum or plasm a TSH 1.14 mIU/L 0.40-4 .50 normal Not Available [facility] [address], [place], [address], 12/08/2016 04:53:11 12/08/19 17 12/08/2016 vitam in D, 25-hy droxy , total , serum vitamin D,25-oh,tota l,ia 72 NG/mL 30-100 normal Vitam in D Statu s 25-OH Vitam in D: Defic iency : <20 ng/mL Insuf ficie ncy: 20 - 29 ng/mL Optim al: > or = 30 ng/mL For 25-OH Vitam in D testi ng on patie nts on D2-canales pplem entat ion and patie nts for whom quant itati on of D2 and D3 fract ions is requi red, the [facility] eD(TM ) 25-OH VIT D, (D2,D 3), LC/MS /MS is recom nils d: order code 28249 (priyanka ents >2yrs ). For more infor alessia poe on this test, go to: http: //wilder harrellia gnost ics.c om/fa q/FAQ 163 (This link is being provi ded for infor alessia nal/e ducat ional purpo ses only. ) Not Available [facility] [address] [address], [place], [address], 12/08/2016 04:53:11 08/24/19 17 08/18/2016 XR, ribs, unila teral , 2 view No observ ation record ed. [facility] [address], [place], [address], 10/11/2016 12:49:27 09/01/19 17 08/21/2016 fortino CARLSON x, smita s, lower extre mity No observ ation record ed. [facility] [address], [place], [address], 10/11/2016 12:49:27 11/04/19 17 11/03/2016 CT, chest , w/o contr ast No observ ation record ed. [facility] (Imaging) [address], [place], [address], 01/11/2017 12:48:28 11/09/19 17 11/03/2016 CT, chest , w/o contr ast No observ ation record ed. [facility] [address], [place], [address], 01/11/2017 12:48:28 Result Notes None recorded. Problems Name Problem SNOMED Code Status Onset Date Resolution Date Notes Provider Name and Address Organization Details Recorded Time Family history of Hypertension [id number] Cathy payne [facility] 15:08:17 [facility] [id number] [facility]08:36 Family history of diabetes mellitus [id number] [facility] 15:08:52 Carpal tunnel syndrome 35200529 Cathy payne [facility] 15:11:41 Hyperlipidemi a 89547431 [facility] 15:11:58 Osteoarthriti s 252041644 Active Nicki payne [facility] 15:12:07 Osteoporosis 96173046 [facility] 15:12:17 Restless legs syndrome 33703073 Cathy payne [facility] 15:12:25 Vitamin D deficiency 82645447 [facility] 6 15:12:36 Coronary arteriosclero sis 89324046 Active 2015 MD Mckay Villegas[address], [place], [address] , [facility] 8 17:23:32 Solitary nodule of lung 856693887 [address] 6 MD Cherri Villegas [address], [place], [address] , [facility] 7 10:04:43 Bronchiectasi s 60842180 Active [address] 6 MD Mckay Villegas[address], [place], [address] , [facility] 7 10:05:04 Ex-smoker 3266722 Active 2016 MD Mckay Villegas[address] [facility] [address], [place], [address] , [facility] 7 10:07:48 Aortic valve stenosis 24457007 Active 2016 MD Mckay Villegas[address], [place], [address] , [facility] 7 19:42:28 Mitral valve regurgitation 01142082 Active 2016 Mild MD Cherri Villegas [address], [place], [address] , [facility] 7 19:42:45 Problem Notes None recorded. Procedures Surgical History Date Name Laterality Status Provider Name and Address Organization Details Recorded Time 5 Colonoscopy completed Nicki Ibanez [facility] 08/17/2015 15:11:24 Imaging Results None recorded. Procedure Notes None recorded. Medical Equipment None Reported. Allergies No known drug allergies Medications Name Sig Start Date Stop Date Status Note LastModified by Organization Details LastModified Time atorvastati n 40 mg tablet Take 1 tablet every day by oral route. 08/18 completed Not Available Not Available Not Available atorvastati n 80 mg tablet TAKE 1 TABLET BY MOUTH EVERY DAY AT BEDTIME active Not Available Not Available No t Available isosorbide mononitrate ER 30 mg tablet,exte nded release 24 hr TAKE 1 TABLET BY MOUTH EVERY DAY active Not Available Not Available No t Available alendronate 70 mg tablet TAKE 1 TABLET BY MOUTH EVERY WEEK DIRECTED active Not Available Not Available No t Available Mobic 7.5 mg tablet Take 1 tablet(s) every day by oral route. PRN 2016 active Not Available Not Available Not Avai lable Aspir-Low 81 mg tablet,prerna yed release Take 1 tablet every day by oral route. 2015 active Not Available Not Available Not Avai lable tobramycin 0.3 % eye drops active Not Available Not Available Not Available triamcinolo ne acetonide 0.1 % topical ointment 11/15 completed Not Available Not Available Not Available sertraline 25 mg tablet TAKE 1 TABLET BY MOUTH EVERY DAY AT BEDTIME 2016 active Not Available Not Available Not Avai lable mupirocin 2 % topical ointment 11/15 completed Not Available Not Available Not Available cefdinir 300 mg capsule Take 1 capsule twice a day by oral route. 10/11 completed Not Available Not Available Not Available sertraline 50 mg tablet Take 1 tablet every day by oral route at bedtime. 02/18 completed Not Available Not Available Not Available Vitamin D 5,000 unit tablet Take 1 tablet every day by oral route. 2015 active Not Available Not Available Not Avai lable Prevnar 13 (PF) 0.5 mL intramuscul ar syringe 05/21 completed Not Available Not Available Not Available Fluzone High-Dose 5602-8073 (PF) 180 mcg/0.5 mL intramuscul ar syringe 04/13 completed Not Available Not Available Not Available Vitals Date Recorded Body height Body weight Body mass index (BMI) Respiratory rate Body temperature Heart rate Systolic And Diastolic Provider Name and Address Organization Details Last Updated DateTime 7 162.56 cm 83931.3 g 24.7 kg/m2 18 /min 97.7 [degF] 67 /min 137/91 mm[Hg] Nicki Ibanez [facility] 7 10:35:23 Date Recorded Systolic And Diastolic Provider Name and Address Organization Details Last Updated DateTime 08/18/2016 132/79 mm[Hg] Kalie Pack MD [address], [place], [address] 08/18/2016 11:18:32 Date Recorded Body height Body weight Body mass index (BMI) Respiratory rate Body temperature Heart rate Provider Name and Address Organization Details Last Updated DateTime 7 162.56 cm 35283.7 1 g 24.5 kg/m2 18 /min 97.1 [degF] 73 /min [facility] 10:16:17 Date Recorded Body height Body mass index (BMI) Body weight Body temperature Heart rate Respiratory rate Systolic And Diastolic Provider Name and Address Organization Details Last Updated DateTime 7 162.56 cm 24.5 kg/m2 13318.7 1 g 97.5 [degF] 75 /min 18 /min 113/69 mm[Hg] [facility] 12:15:11 Date Recorded Systolic And Diastolic Provider Name and Address Organization Details Last Updated DateTime 01/11/2017 133/80 mm[Hg] Kalie Pack MD [address], [place], [address] 01/11/2017 12:48:27 Date Recorded Body height Heart rate Respiratory rate Body temperature Body mass index (BMI) Body weight Provider Name and Address Organization Details Last Updated DateTime 7 162.56 cm 67 /min 18 /min 97.7 [degF] 24.4 kg/m2 72358.1 2 g Letitia [facility] 12:19:43 Date Recorded Body height Heart rate Heart rate Respiratory rate Body temperature Body mass index (BMI) Body weight Systolic And Diastolic Systolic And Diastolic Provider Name and Address Organization Details Last Updated DateTime 162.56 cm 65 /min 69 /min 18 /min 97.5 [degF] 24.7 kg/m2 42202.3 g 174/97 mm[Hg] 154/96 mm[Hg] Letitia Pascual [facility] 7 10:14:15 Social History Question Answer Notes LastModified by Organizat ion Details LastModified Time Tobacco Smoking Status Former Smoker quit in 2001 Kalie Pack MD [address] [facility] [address], [place], [address], [facility] 07/29/2017 17:24:20 What Was The Date Of Your Most Recent Tobacco Screening? 04/13/2017 Information not available 11/08/2018 Sex: Unknown Functional Status None recorded. Mental Status None recorded. Family History Relationship Description Onset Age of this Age Resolved Age Notes LastModified by Organization Details LastModified Time Mother Essential hypertension [email or web address] Not available 04/2015 15:09:11 Maternal Aunt Malignant neoplasm of pancreas [email or web address] Not available 2015 15:09:27 Maternal Aunt Diabetes mellitus [email or web address] Not available 2015 15:09:38 Medical History Condition Response Coronary Artery Disease N Other N Gout N Kidney Stones N Blood Diseases N Hyperthyroidism N Breast Cancer N Blood Transfusion N Hypothyroidism N Depression N COPD N Lung Disease N Defects or Inherited Disease N Developmental or Behavioral Disorders N Breast Problem N Difficulty Swallowing N Anesthesia Complications N Meniere's disease N Anxiety Disorder N Muscle, Joint, or Bone Problems N Obesity N Vision or Eye Problems N Arthritis N Polyps N Infertility N Mental Disorder N Cancer N Varicosities N Stroke N Endometriosis N Bladder or Kidney Problems N High Cholesterol N Liver Disease N Headaches N Fibromyalgia N Kidney Disease N Allergies/Hayfever N Heart Problems N Ear or Hearing Problems N Hospitalizations N Thyroid Problems N GI Problems N ADD/ADHD N Skin Problems N Eating Disorder N Anemia N MRSA exposure N Constipation N Mental Illness N Ovarian Cancer N Diabetes N Bedwetting N Seizures/Epilepsy N Tuberculosis N AIDS/HIV N Congestive Heart Failure (CHF) N Eczema N Diverticulitis N Abuse/Domestic Violence N Asthma N Reflux/GERD N Hepatitis N Heart Disease N Pulmonary Embolism N Chronic Ear Infections N Pre-Eclampsia N Hypertension N Chicken Pox N Autism Spectrum Disorder (ASD) N Osteoporosis N Thrombophilias N Gynecological HistoryNo gynecological history recorded. Obstetrics History GPAL:G 0 P 0 0 0 0 Immunizations Vaccine Type Date Status Note Provider Nam e and Address Organization Details Recorded Time Pneumococcal conjugate PCV 13 6 completed MD Cherri Villegas [facility] [address], [place], [address], [facility] 11/19/2015 09:34:58 Influenza, split virus, quadrivalent, preservative 5 completed Nicki payne, [facility] 08/19/2015 08:55:59 pneumococcal polysaccharide PPV23 5 completed Nicki payne [facility] 08/19/2015 08:56:28 Influenza, split virus, trivalent, preservative 6 completed Not Available [facility] 05/05/2019 02:27:21 Influenza, split virus, quadrivalent, preservative 7 completed MD Cherri Villegas [facility] [address], [place], [address], [facility] 04/13/2017 10:46:18 Past Encounters Encounter ID Performer Location Encounter Start Date Encounter Closed Date Diagnosis/Indication Diagnosis SNOMED-CT Code Diagnosis ICD10 Code Diagnosis IMO Codes Diagnosis Note [id number] Kalie Pack MD [facility], [address] [place] [address] 08/19/2015 08:48:39 08/19/2015 09:24:52 Vitamin D deficiency 57154779 E55.9 Coronary arteriosclerosis 24848084 I25.10 Osteoporosis 55833263 M8 1.0 DEXA after 08/21/15 Solitary n odule of lung 005360230 R91.1 CT 09/6015 Active or passive immunization 316736778 Z23 refuse Td and shingles [id number] Kalie Pack MD [facility], [place] [address] [place] [address] 11/19/2015 08:58:39 11/19/2015 09:50:44 Coronary arteriosclerosis 91783693 I25.10 Hyperlipidemia 28462815 E78.5 Osteoporosis 95076169 M8 1.0 Vitamin D deficiency 347 07785 E55.9 Solitary n odule of lung 987002140 R91.1 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 [id number] Kalie Pack MD [employer], [place] [address] [place] [address] 02/19/2016 09:14:14 02/19/2016 10:06:36 Vitamin D deficiency 30653396 E55.9 Osteoarthritis 137719534 M19.90 Hyperlipidemia 33781274 E78.5 Coronary arteriosclerosis 96342361 I25.10 Active immunization 3387 9002 Z23 Solitary n odule of lung 973769541 R91.1 ct, chest discussed/ will complete in March 2016 Osteoporosis 88954066 M8 1.0 [id number] Kalie Pack MD [employer], [place] [address] [address] [facility] [facility] [address] [place] [address] 04/01/2016 09:00:58 04/01/2016 10:24:20 Osteoporosis 67445494 M81.0 last DEXA 09/30/15 / on fosamax Hyperlipidemia 30816059 E78.5 last LDL @ goal 06/26/15 Solitary n odule of lung 120989010 R91.1 ct, chest discussed/ will complete in March 2016 Coronary arteriosclerosis 81723991 I25.10 asymptomat ic now Vitamin D deficiency 347 41996 E55.9 on replacment Osteoarthritis 886826169 M19.90 Adult heal th examination 268742195 Z00.00 [id number] Kalie Pack MD [employer], [facility] [place] [address] 05/21/2016 09:04:00 05/21/2016 10:18:35 Bronchiectasis 83730649 J47.9 Vitamin D deficiency 347 20124 E55.9 on replacemen t Coronary arteriosclerosis 70458424 I25.10 asymptomat ic now Hyperlipidemia 09771697 E78.5 last LDL @ goal 06/26/15 [id number] Kalie Pack MD [employer], [place] [address] [place] [address] 07/22/2016 10:18:42 07/22/2016 11:03:08 Edema of lower extremity 324334204 R60.0 Solitary n odule of lung 574271752 R91.1 ct, chest discussed/ CT chest 09/2016 [id number] Kalie Pack MD [email or web address], [place] [address] [facility] [address] [place] [address] 08/18/2016 10:09:42 08/18/2016 11:26:49 Rib pain 091093127 R07.81 Edema of l ower extremity 901670728 R60.0 Solitary n odule of lung 346839308 R91.1 ct, chest discussed/ CT chest 09/2016 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 [id number] Kalie Pack MD [employer], [place] [facility] [address] [place] [address] 10/11/2016 12:03:56 10/11/2016 12:58:55 Hyperlipidemia 60586375 E78.5 last LDL @ goal 04/08/16 Coronary arteriosclerosis 36332465 I25.10 asymptomat ic now Osteoporosis 46762104 M8 1.0 last DEXA 09/30/15 on fosamax Vitamin D deficiency 347 72223 E55.9 on replacemen t Solitary n odule of lung 817874918 R91.1 ct, chest discussed/ CT chest 09/2016 [id number] Kalie Pack MD [employer] [email or web address] [facility], [place] [address] [address] [place] [address] 01/11/2017 12:08:45 01/11/2017 13:08:46 Adult health examination 626577697 Z00.00 last ophth eval 2016 Coronary arteriosclerosis 57486376 I25.10 asymptomat ic now Hyperlipidemia 04993083 E78.5 last LDL @ goal 04/08/16 Osteoporosis 17238501 M8 1.0 last DEXA 09/30/15 on fosamax Osteoarthritis 002307596 M19.90 good control on tylenol on PRN Vitamin D deficiency 347 16619 E55.9 on replacemen t Restless l egs syndrome 54950701 G25.81 under good control Solitary n odule of lung 014972573 R91.1 ct, chest discussed/ CT chest 09/2016 stable with no changes , recheck 09/2017 Bronchiectasis 90980603 J47.9 asymptomat ic , last PFT 05/21/16 Ex-smoker 3462256 Z87.89 1 education Stable angina 907451636 I20.8 had cath 04/2015 , sees cardiology on reg basis Screening for malignant neoplasm of colon 502393080 Z12.11 last C scope 03/2015 Screening mammography 24 465494 Z12.31 last mammogram 03/04/17 Depression screening 171 901703 Z13.89 -ve Screening for malignant neoplasm of cervix 607754056 Z12.4 N/A , last pelvic 2013 Active or passive immunization 918510704 Z23 flu shot [id number] Kalie Pack MD [employer] [address] [place] [address] 04/13/2017 09:49:33 04/13/2017 11:15:40 Benign hypertension 72673964 I10 Coronary arteriosclerosis 66464389 I25.10 asymptomat ic now Hyperlipidemia 93569936 E78.5 last LDL @ goal 04/08/16 Osteoporosis 72804614 M8 1.0 last DEXA 09/30/15 // on fosamax Solitary n odule of lung 051831880 R91.1 ct, chest discussed/ CT chest 09/2016 stable with no changes , recheck 09/2017 Mixed anxi ety and depressive disorder 027843548 F41.8 No SI, No HI Screening mammography 24 449944 Z12.31 last mammogram 03/04/16 Active or passive immunization 611847448 Z23 pt had flu shot Health Concerns Section Related Observation LastModified by Organization Detai ls LastModified Time None Recorded Concern Status LastModified by Organization Details LastModified Time None Recorded Advance Directives Directive None Recorded Payers Insurance Date Sequence Insurance Name Policy Number Policy Reddy Covered Member ID Reddy Member ID Guarantor Name 07/08/2017 1 [place] [employer] Carmella Garcia [id number] Carmella Garcia 09/08/2015 3 [facility] (MEDICAID HMO) [id number] Carmella Garcia [id number] Carmella Garcia 07/08/2017 1 [employer] (MEDICARE REPLACEMENT/A DVANTAGE - [place]) [id number] Carmella Garcia [id number] Carmella Garcia Notes Date Note Type Note Provider Name and Address Organization Details Recorded Time 07/22/2016 text/html Hypertension F/UReported by PatientHPIFor medications, patient reportstaking medications as directedandno side effects from medication. For lifestyle, patient reportsregular exercise,limiting/vega iding salt, andcompliant with low salt diet. For associated symptoms, patient reportsno dizziness,no lightheadedness,no chest pain,no shortness of breath,no palpitations,no edema,no calf pain with exertion, andno headache. had low ext swelling , went to urgent care , and ER , did not do doppler OR lab MD Cherri Villegas [address], [place], [address], [facility] 07/22/2016 11:02:35 08/18/2016 text/html Hypertension F/UReported by PatientHPIFor medications, patient reportstaking medications as directedandno side effects from medication. For lifestyle, patient reportsregular exercise,limiting/vega iding salt, andcompliant with low salt diet. For associated symptoms, patient reportsno dizziness,no lightheadedness,no chest pain,no shortness of breath,no palpitations,no edema,no calf pain with exertion, andno headache. Lt ribs pain on and off , with deep breathing , not with activitydid not get venous doppler , DDimer is -ve , still have swelling low ext MD Cherri Villegas [address], [place], [address], [facility] 08/18/2016 11:24:59 10/11/2016 text/html Hypertension F/UReported by PatientHPIFor medications, patient reportstaking medications as directedandno side effects from medication. For lifestyle, patient reportsregular exercise,limiting/vega iding salt, andcompliant with low salt diet. For associated symptoms, patient reportsno dizziness,no lightheadedness,no chest pain,no shortness of breath,no palpitations,no edema,no calf pain with exertion, andno headache. MD Cherri Villegas [address], [place], [address], [facility] 10/11/2016 12:57:03 01/11/2017 text/html Medicare Annual Wellness VisitReported by PatientSocial/Behavio ral HistoryFor diet and nutrition, patient reportshealthy diet. For fracture risk, patient reportsno history of fractures,no recent explained fracture,no sudden unexplained fractures, andno previous musculoskeletal injuries. For physical activity, patient reportsexercises on a regular basis,recent increase in physical activity, andgood physical condition.Mental Status:For depression risk, patient reportsnever feels sad, empty, or tearful,no loss of interest in activities,no significant changes in weight,no sleep disturbances or insomnia,no agitation,no thoughts of suicide, andno history of depression. For orientation, patient reportsno disorientation to time,no disorientation to date, andno disorientation to place. For concentration and memory, patient reportsno decreased concentrating ability,no memory lapses or loss, anddoes not forget words. For speech/motor difficulties, patient reportsno speech difficulties,no difficulty expressing formulated concepts,no difficulty with fine manipulative tasks, andno difficulty writing/copying.Funct ional AbilityFor hearing, patient reportsno loss of hearing. For vision, patient reportsno vision problems. For activities of daily living, patient reportsable to bathe with limited or no assistance,able to contol urination and bowels,able to dress with limited or no assistance,able to feed self with limited or no assistance, andable to get out of chair or bed with limited or no assistance. For instrumental activities of daily living, patient reportsable to do house work with limited or no assistance,able to grocery shop with limited or no assistance,able to manage medications with limited or no assistance, andable to manage money with limited or no assistance. For falls risk assessment, patient reportsno frequent falls while walking,no fall in the past year, andno dizziness/vertigo. Kalie Pack MD [address] [facility] [address], [place], [address], [facility] 01/11/2017 13:03:07 04/13/2017 text/html Medicare Annual Wellness VisitReported by PatientSocial/Behavio ral HistoryFor diet and nutrition, patient reportshealthy diet. For fracture risk, patient reportsno history of fractures. For physical activity, patient reportsexercises on a regular basis,recent increase in physical activity, andgood physical condition.Mental Status:For depression risk, patient reportsnever feels sad, empty, or tearful,no loss of interest in activities,no significant changes in weight,no sleep disturbances or insomnia,no agitation,no loss of energy,no feelings of worthlessness or guilt,no thoughts of suicide,no history of depression, andno history of mood disorders.Functional AbilityFor falls risk assessment, patient reportsno frequent falls while walking,no fall in the past year, andno dizziness/vertigo. Hypertension F/UReported by PatientHPIFor medications, patient reportstaking medications as directedandno side effects from medication. For lifestyle, patient reportsregular exercise,limiting/vega iding salt, andcompliant with low salt diet. For associated symptoms, patient reportsno dizziness,no lightheadedness,no chest pain,no shortness of breath,no palpitations,no edema,no calf pain with exertion, andno headache. still have SOB with activity , seen cardiology 12/2016 , had cardiac cath 2015 , Kalie Pack MD [address], [place], [address], [facility] 04/13/2017 10:53:11 OBGyn Episode No OBEpisode recorded.
--- OUTSIDE RECORDS SUMMARY | 2025-02-14 15:03 | XMS_ITS | Clinical Summary ---
Author Organization [facility] at [facility] Address [address] [place] [address] Care Team Providers Care Biomathematician Name Role Phone Kerwin Arellano MD Primary Care Provider Armando Thomas MD Unavailable [phone] Yessenia Ospina MD Unavailable [phone] Efren Beaver MD Unavailable [phone] Jean Gracia DO Unavailable [phone] Allergies Active Allergy Reactions Criticality Noted Date Comments Penicillin Unknown 03/05/2022 Koqwhzl-Zdj-Myi Reductase Inhibitors Other (See comments) Low 03/05/2022 Abnormal liver function tests Medications aspirin 81 mg enteric coated tablet Take 1 tablet (81 mg total) by mouth daily Active isosorbide mononitrate ER (IMDUR) 30 mg 24 hr tablet TAKE 1/2 TABLET BY MOUTH EVERY MORNING DIRECTED BY BRAIDING MACHINE OPERATOR 45 tablet 1 3 Active calcium carbonate-vitam in D3 2,500 mg (1,000 mg elemental)-800 unit tablet Take 600 mg by mouth Patient does not take a chewable, unable to find tablet in that dosing. Calcium 600 with Vit D3 20mg she buys to from [employer]. Active cholecalciferol (Vitamin D3) 1,000 unit capsule Take 1 capsule (1,000 Units total) by mouth daily Active metoprolol XL (TOPROL-XL) 50 mg extended release tablet Take 1 tablet (50 mg total) by mouth daily 5 Active ezetimibe (ZETIA) 10 mg tablet Take 1 tablet (10 mg total) by mouth daily 5 Active Additional Information Patient not taking.Reported on 09/06/2024 Active Problems Problem Noted Date Diagnosed Date Xerosis cutis 06/01/2024 Other cirrhosis of liver 12/12/2023 Noncompliance w/medication t reatment due to intermit use of medication 10/14/2022 Neuropathy 10/14/2022 Generalized anxiety disorder 09/05/2022 Tinea versicolor 09/05/2022 Assessment & Plan (09/05/2022 12:09 PM CDT): I'm considering treating for tinea versicolor for the areas on the legs We can see if that helps in the near-term (it can take a month to fully treat); otherwise, we will send to derm Tension headache 09/05/2022 Overview (09/05/2022): recommended Tylenol PRN, she seemed to be agreeable to that Encounter for Medicare annual wellness exam 07/17 Assessment & Plan (12/08/2023 9:03 AM CDT): A(n) yearly Annual [employer] Visit has been performed today. Carmella Garcia is not up to date on screening tests. She is in need of hep B screening . She is up to date on needed preventative vaccinations. We discussed healthy lifestyle habits, educational material has been given. Medications reviewed, changes documented as per the medical record and discussed with patient along with risks vs benefits. Specific topics reviewed: drugs, ETOH, and tobacco, importance of regular dental care, importance of regular exercise, importance of varied diet, limit TV, media violence, minimize junk food, and seat belts. Return in 3 months Assessment & Plan (08/02/2022 3:09 PM CDT): A(n) yearly Medicare Annual Wellness Visit has been performed today. Carmella Garcia is up to date on screening tests. She is in need of None- no screening indicated at this time. She is not up to date on needed preventative vaccinations; She is in need of Covid-19 (booster). We discussed healthy lifestyle habits, educational material has been given. Medications reviewed, changes documented as per the medical record and discussed with patient along with risks vs benefits. Discussed her recent difficulties with her receiver bulk system's office staff We do have some records from her previous receiver bulk system Was able to get grudging acceptance of therapeutic plan Encouraged her to get back into counseling with Cate Cheng in 1 month Recurrent major depression 08/02/2022 Mixed hyperlipidemia 05/25/2022 Statin myopathy 05/25/2022 Statin intolerance 05/25/2022 Gastroesophageal reflux disease 05/05/2022 Assessment & Plan (05/05/2022 9:02 AM BROADCAST MAINTENANCE TECHNICIAN): Intermittently symptomatic. Upper GI series (2019) revealed free reflux. She was counseled about her diet. Primary hypertension 03/05/2022 Hepatitis C antibody test positive 01/05/2022 Overview (01/05/2022): discussed meaning of testing, but we'll recheck to confirm if active hep C (+ viral load), will get GI consultation for rx Assessment & Plan (05/05/2022 9:04 AM BROADCAST MAINTENANCE TECHNICIAN): She had elevated liver function tests ( Alkaline phosphatase 132, AST 146, ALT 130 in December 2021. Hepatitis C RNA undetectable. Likely has false positive hepatitis C antibody. She was reassured. Carpal tunnel syndrome 01/04/2022 Osteoarthritis 01/04/2022 Restless legs 01/04/2022 Vitamin D deficiency 01/04/2022 Malaise and fatigue 04/30/2021 Assessment & Plan (06/01/2021 10:33 PM BROADCAST MAINTENANCE TECHNICIAN): Talked about Sleep and trying to help her get better sleep Suggested Sleepy Time Tea, Melatonin , avoiding stimulants before bed time. Suggested doing yoga, or stretching exercies. Encouraged her to get 7-8 hours of sleep per night. Assessment & Plan (04/30/2021 12:26 PM BROADCAST MAINTENANCE TECHNICIAN): Lab work today Talked about sleep , hours of, quality of, how many times getting up at night. No stimulants at bedtime. Talked about sleep hygiene. Rash, skin 03/30/2021 Assessment & Plan (06/01/2021 10:27 PM BROADCAST MAINTENANCE TECHNICIAN): Told her to continue with skin care as she is doing. Will contact senior ios developer and discuss this case, patient did give permission to talk with derm. Assessment & Plan (04/30/2021 12:31 PM BROADCAST MAINTENANCE TECHNICIAN): Talked to patient about skin rash. Note thinning of skin on anterior thighs. States using Triacimalone cream 2 times a day. No eczema noted or other rashes. Note does not use any soap but Dickson Tar soap. Nothing but natural products for washing clothes etc. Note talked with her about seeing another senior ios developer. Looks like Vitiligo Assessment & Plan (03/31/2021 9:17 AM BROADCAST MAINTENANCE TECHNICIAN): Note will call senior ios developer in regards to skin rash./discoloration. Encouraged patient to use mild soap, no extreme hot water bathes or showers. To investigate pine tar soaps that she is using. Continuing to use triamcinolone cream on a regular basis. Advised her not to use this a cream Hypercholesteremia 03/30/2021 Assessment & Plan (06/01/2021 10:22 PM BROADCAST MAINTENANCE TECHNICIAN): Coninue with medication as ordered. Continue to watch diet and exercise. Talked about her diet noting she is low income States is okay, funds are limited but she is making it. 23 hour food recall done noting she does eat breakfast, lunch and dinner. Does get in fruits and vegetables. Assessment & Plan (04/30/2021 12:20 PM BROADCAST MAINTENANCE TECHNICIAN): Continue with medication as ordered. Lab work today. Continue to monitor diet for high fats and sugars. Exercise at least 3 times a week for 30 min. Assessment & Plan (03/31/2021 9:06 AM BROADCAST MAINTENANCE TECHNICIAN): Continue with medications as ordered. Lipitor 40mg one at HS Watch diet, eat balanced. Continue with exercise 3 times a week. Patient records will be obtained to review recent lab tests. Osteoporosis 03/30/2021 Assessment & Plan (04/30/2021 12:22 PM BROADCAST MAINTENANCE TECHNICIAN): Set up for bone density, Jennifer Sinha. Continue with Citrcal D and Mag. Eat balanced. Adequate fluids. Long bone exercises. Assessment & Plan (03/31/2021 9:12 AM BROADCAST MAINTENANCE TECHNICIAN): Note is off fosamax at this time. Will do bone density to assess how the Fosamax is working. Encouraged long bone exercises at least 3 times a week. Discussed what long bone exercises are and how it affects her borns. Denies any jaw pain, does see dentist on regular basis. Aortic valve stenosis 01/01/2017 Mitral valve regurgitation 01/01/2017 Overview (11/10/2022): Mild Lung nodule 05/20/2016 Overview (11/10/2022): on CT 03/2016 Bronchiectasis 05/20/2016 Overview (11/10/2022): on CT 03/2016 Coronary artery disease invo lving tanana coronary artery of tanana heart without angina pectoris 07/26/2015 Resolved Problems Problem Noted Date Diagnosed Date Resolved Date Positive LINDA (antinuclear antibody) 11/10/2022 12/08/2023 Abnormal liver function tests 03/05/2022 12/08/2023 Assessment & Plan (05/05/2022 9:06 AM BROADCAST MAINTENANCE TECHNICIAN): US RUQ normal. Had elevated liver enzymes in December 2021. Recent LFTs normal. She may have had acute viral syndrome or medication induced liver injury. She was counseled to avoid alcohol consumption and encouraged to check every medication with her physician prior to use. I recommend repeat liver function tests in 3 months. Immunizations Immunization Administration Dates Next Due Influenza, Quad, Adjuvantate d, Intramuscular 01/29/2023 Influenza, Quadrivalent, Hig h Dose, Preservative Free, Intrr 01/17/2022,01/10/2020 Influenza, Quadrivalent, Spl it, Intramuscular 02/16/2017,01/30/2015 Influenza, Trivalent, Adjuva nted, Intramuscular 02/02/2024,02/13/2019,02/28/2018 Influenza, Trivalent, High D ose, Split, Preservative Free, Intramuscular 02/06/2017 Influenza, Trivalent, IM (MDV) 02/19/2016 Influenza, Unspecified 12/01/2022(Deferr ed: Patient Refused),01/27/2022,06/01/2021(Deferre d: Patient Refused) Moderna SARS-CoV-2 Monovalen t Vaccination (12+ YRS) 04/28/2021 Pneumococcal Conjugate PCV 13 08/17/2015, 016 Pneumococcal Polysaccharide PPV23 01/30/2015 Surgical History Surgery Date Site/Laterality Comments HYSTERECTOMY ABDOMINAL SURGERY N/A navel surgery HIP SURGERY Right Medical History Medical History Date Comments Hypercholesteremia Eczema CAD (coronary artery disease) Hepatitis C Family History Medical History Relation Name Comments Borderline personality disorder Daughter PTSD Daughter COPD Mother Relation Name Status Comments Daughter Alive Father unknown Maternal Grandfather Maternal Grandmother Mother Paternal Grandfather Paternal Grandmother Social History Tobacco Use Types Packs/Day Years Used Date Smoking Tobacco: Former Cigarettes Q uit: 2001 Passive Smoke Exposure: Past Humiliation, Afraid, Rape, and Kick questionnair e Answer Date Recorded Within the last year, have y ou been afraid of your partner or ex-partner? No 03/31/2021 Within the last year, have y ou been humiliated or emotionally abused in other ways by your partner or ex-partner? No Within the last year, have y ou been kicked, hit, slapped, or otherwise physically hurt by your partner or ex-partner? No 03/31/2021 Within the last year, have y ou been raped or forced to have any kind of sexual activity by your partner or ex-partner? No 03/31/2021 Social Connection and Isolation Panel Answer Date Recorded In a typical week, how many times do you talk on the phone with family, friends, or neighbors? Three times a week 03/31/2021 How often do you get togethe r with friends or relatives? Twice a week 03/31/2021 How often do you attend [facility] or [facility] services? More than 4 times per year 03/31/2021 Do you belong to any clubs o r organizations such as baptist groups, unions, fraternal or athletic groups, or school groups? Yes 03/31/2021 How often do you attend meet ings of the clubs or organizations you belong to? More than 4 times per year 03/31/2021 Are you , , di vorced, , never , or living with a partner? 03/31/2021 AUDIT-C Answer Date Recorded Q1: How often do you have a drink containing alcohol? Never 08/02/2022 Q2: How many drinks containi ng alcohol do you have on a typical day when you are drinking? Patient does not drink Q3: How often do you have si x or more drinks on one occasion? Never 08/02/2022 Overall Financial Resource Strain (CARDIA) Answe r Date Recorded How hard is it for you to pa y for the very basics like food, housing, medical care, and heating? Somewhat hard 03/31/2021 PHQ-2 Answer Date Recorded PHQ-2 Total Score (If total score is 3 or more points, staff should administer the PHQ-9) 0 09/06/2024 Exercise Vital Sign Answer Date Recorde d On average, how many days pe r week do you engage in moderate to strenuous exercise (like a brisk walk)? 3 days 03/31/2021 On average, how many minutes do you engage in exercise at this level? 30 min 03/31/2021 Hunger Vital Sign Answer Date Recorded Worried About Running Out of Food in the Last Ye ar Not on file 03/31/2021 Within the past 12 months, t he food you bought just didn't last and you didn't have money to get more. Never true 03/31/2021 PRAPARE - Transportation Answer Date Re corded In the past 12 months, has l ack of transportation kept you from medical appointments or from getting medications? No 03/18 In the past 12 months, has l ack of transportation kept you from meetings, work, or from getting things needed for daily living? No 03/31/2021 Housing Stability Vital Sign Answer Greg e Recorded In the last 12 months, was t here a time when you were not able to pay the mortgage or rent on time? No 03/31/2021 In the last 12 months, how many places have you lived? 1 03/31/2021 In the last 12 months, was t here a time when you did not have a steady place to sleep or slept in a assisted (including now)? 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 Not on file Not on file Not on file Obstetrics History Last Filed Vital Signs Vital Sign Reading Time Taken Comments Blood Pressure 120/80 09/06/2024 9:11 AM CDT Pulse 54 09/06/2024 9:11 AM CDT Temperature 35.9 C (96.7 F) 09/06/2024 9:11 AM CDT Respiratory Rate 16 09/06/2024 9:11 AM CDT Oxygen Saturation 96% 09/06/2024 9:11 AM CDT Inhaled Oxygen Concentration - - Weight 57.6 kg (127 lb) 09/06/2024 9:11 AM CDT Height 158.8 cm (5' 2.5) 09/06/2024 9:11 AM CDT Body Mass Index 22.86 09/06/2024 9:11 AM CDT Plan of Treatment Health Maintenance Due Date Last Done Comments Osteoporosis Screening-Bone Density Scan 09/08/2023 09/07/2021, 08/19/2015 Fall Risk Assessment 12/07/2024 12/08/2023, 03/02/2023, 12/01/2022, Additional history exists Well Visit 65+ 12/07/2024 12/08/2023, 08/02/2022 Covid-19 Vaccine ( season) 2024 11/07/2021, 04/28/2021, 06/23/2020 Influenza Vaccine (#1) 2024 , 01/29/2023, 01/27/2022, Additional history exists Zoster Vaccine (1 of 2) 03/09/2025 Post poned from 1985 (Insurance / Financial) DTaP/Tdap/Td Vaccine (1 - Tdap) 04/17/2025 Postponed from 1946 (Insurance / Financial) Depression Screening 09/06/2025 09/06/2024, 03/09/2024, 03/09/2024, Additional history exists Pneumococcal vaccine 65+ Completed 016, 06/03/2015, 01/30/2015 Hepatitis B Screening Completed 09/06/2024 Procedures Procedure Name Priority Date/Time Associated Diagnosis Comments DEXA SCAN Routine 09/07/2021 from Last 3 Months or Most Recently Relevant to Health Maintenance Results * DEXA SCAN (09/07/2021) Scribed Deca Scan Abnormal Comment:Osteoporosis, Osteop enia us Fadi Bucio NP HEALTH MAINTENANCE Final Result from Last 3 Months or Most Recently Relevant to Health Maintenance Insurance [employer] MED[employer]ARE HMO [employer] MEDICARE HMO [employer] MEDICARE HMO Care Teams Biomathematician Relationship Specialty Start Date End Date Kerwin Arellano MD [address] [place] [address] PCP - General Family Medicine 01/04/22 Armando Thomas MD [address] [facility] [address] [place] [address] Consulting Physician Cardiovascular Disease 01/04/22 Yessenia Ospina MD [address] [place] [address] Consulting Physician Gastroenterology 01/08/22 [place] [address] [facility] [address] [place] [address] Consulting Physician Gastroenterology 08/02/22 Jean Gracia DO [address] [place] [address] Referring Physician Cardiology 06/01/24
--- OUTSIDE RECORDS SUMMARY | 2025-02-14 15:03 | XMS_ITS | Clinical Summary ---
Author Organization [facility] Address [address] [place] [id number] Care Team Providers Care Drum Barker Operator Name Role Phone Unavailable Primary Care Provider [...] - 1-dose 75+ series) 2010 COVID-19 Vaccine (2024-2 6 season) 2024 Influenza Adult (#1) 2025 Hepatitis A Vaccines Aged Out No long er eligible based on patient's age to complete this topic Meningococcal B Vaccine Aged Out No l onger eligible based on patient's age to complete this topic Meningococcal Vaccine Aged Out No carlos jessica eligible based on patient's age to complete this topic RSV Immunizations Under 20 Months Aged Out No longer eligible based on patient's age to complete this topic
--- OUTSIDE RECORDS SUMMARY | 2025-02-14 15:03 | XMS_ITS | Clinical Summary ---
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]
--- OUTSIDE RECORDS SUMMARY | 2025-02-14 15:04 | XMS_ITS | Data Portability ---
Author Organization [place] - [facility] OFFICE Address [address] [place] [address] Care Team Providers Care Etcher Aircraft Name Role Phone ARRON CASANOVA Primary Care Provider [phone] ARRON CASANOVA Referring Provider NUVIA SALAZAR Primary Care Provider Assessment No assessment recorded. Plan of Treatment Reminders Order Date Submit Date Provider Last Modified By Organization Details Last Modified Time Details Appointments None recorded. Lab None recorded. Referral None recorded. Procedures None recorded. Surgeries None recorded. Imaging None recorded. Medication Orders metoprolol succinate ER 25 mg tablet,exte nded release 24 hr 2021 022 [facility] #[id number], [address], [place], [id number], 11:19:38 atorvastati n 40 mg tablet 2021 022 [facility] #[id number], [address], [place], [phone], 11:19:37 atorvastati n 40 mg tablet 2020 021 [facility] #59708, [address], [place], [phone], 11:41:33 isosorbide mononitrate ER 30 mg tablet,exte nded release 24 hr 2020 08 021 [facility] #44348, [address] [facility], [place], [place], [id number], 11:41:30 Patient TargetsNo targets recorded. Patient Instructions Encounter Date Encounter Id Patient Instructions Last Modified By Organization Details Last Modified Time 09/25/2021 [id number] Exercise advised Low cholesterol diet advised Low sodium diet advised. [email or web address] Not available 09/25/2021 12:06:09 10/23/2021 [id number] Exercise advised Low cholesterol diet advised Low sodium diet advised. [email or web address] Not available 10/23/2021 09:57:41 04/23/2022 [id number] Exercise advised Low cholesterol diet advised Low sodium diet advised. [email or web address] Not available 04/23/2022 10:32:46 Reason for Referral None Reported. Results Created Date Observation Date Name Description Value Unit Range Abnormal Flag Note LastModifiedBy Organization Detail LastModifiedTime 12/15/19 21 11/21/2020 elect rocar diogr am No observ ation record ed. [email or web address] Not Available 2020 14:41:51 06/24/19 22 06/12/2021 elect rocar diogr am No observ ation record ed. [email or web address] Not Available 2021 10:30:59 07/26/19 22 07/13/2021 , echo ardio gram No observ ation record ed. esto [facility] [address], [place], [address], 08/05/2021 18:40:57 09/29/19 22 09/15/2021 nucle ar stres s test No observ ation record ed. [email or web address] Not Available 2021 08:38:54 04/28/19 23 04/23/2022 elect rocar diogr am No observ ation record ed. [email or web address] Not Available 2022 10:31:43 Result Notes None recorded. Problems Name Problem SNOMED Code Status Onset Date Resolution Date Notes Provider Name and Address Organization Details Recorded Time Chest pain 92465064 Active 2015 Tremaine Concepcion null, [place] - [facility] 6 11:52:43 Hyperlipide elinor 63804804 Active 2015 Penalozajulian Concepcion null, [place] - [facility] 6 11:52:51 Coronary arterioscle rosis 00260348 Active 2015 moderate two vessel disease Penalozajulian Concepcion [facility], [place] - [facility] 6 11:59:33 Electrocard iogram abnormal 379279288 Active 2015 Penalozajulian Concepcion null, [place] - [facility] 6 11:59:41 Systolic murmur 98809806 Active 2015 Penalozajulian Concepcion null, [place] - [facility] 6 11:59:52 Mitral valve regurgitati on 04390383 Active 2015 Penalozajulian Concepcion [facility], [place] - [facility] 6 11:59:59 Aortic valve stenosis 38706570 Active 2016 Penalozajulian Concepcion [facility] 7 10:20:06 Stable angina 342122715 Active 2017 [place], [place] - [facility] 8 12:33:42 Essential hypertensio n 88135715 Active 2017 Armando Valle i, MD [address] [place], [address] [place] [address] [facility] 8 12:31:42 Dyspnea on exertion 77325181 Active 2019 [facility] 0 12:49:17 Problem Notes None recorded. Procedures Surgical History Date Name Laterality Status Provider Name and Address Organization Details Recorded Time [facility]ste[facility] 07/26/2015 11:53:21 Hernia Repair [facility] 07/26/2015 11:53:34 Treat hip fracture(s) completed Penaloza [facility] 07/26/2015 11:54:57 Imaging Results None recorded. Procedure Notes None recorded. Medical Equipment None Reported. Allergies No known drug allergies Medications Name Sig Start Date Stop Date Status Note LastModified by Organization Details LastModified Time lubricant eye drops 08/24 completed Not Available Not Available Not Available vitamin a and d ointment 4 oz. 08/24 completed Not Available Not Available Not Available topical analgesic cream caps 08/24 completed pt not taking 08/17/19 Not Available Not Available Not Available polyethyle ne glycol 3350 08/24 completed Not Available Not Available Not Available muscle rub 08/24 completed Not Available Not Available Not Available lidocaine patch 08/24 completed as needed Not Available Not Available Not Available roll-on muscle relief 08/24 completed Not Available Not Available Not Available back support one size 08/24 completed Not Available Not Available Not Available wart remover liquid 08/24 completed Not Available Not Available Not Available eye drops redness reliever 08/24 completed Not Available Not Available Not Available stool softener capsules 08/24 completed Not Available Not Available Not Available disposable gloves - non-latex 08/24 completed Not Available Not Available Not Available laxative biscodyl 5mg 08/24 completed Not Available Not Available Not Available blood pressure home kit (manua 08/24 completed Not Available Not Available Not Available sun block spf 30 - 240 ml 08/24 completed Not Available Not Available Not Available eye care vitamins 08/24 completed pt. not taking Not Available Not Available Not Available loratadine 10mg 08/24 completed Not Available Not Available Not Available oatmeal bath treatment 08/24 completed Not Available Not Available Not Available triple antibiotic ointment plu 08/24 completed Not Available Not Available Not Available acetaminop hen 325 mg 06/12 completed Not Available Not Available Not Available atorvastat in 40 mg tablet TAKE 1 TABLET BY MOUTH EVERY DAY AT BEDTIME active Not Available Not Available No t Available buspirone 5 mg tablet TAKE 1 TABLET BY MOUTH EVERY 12 HOURS NEEDED active Not Available Not Available No t Available metformin 500 mg tablet TAKE 1 TABLET BY MOUTH TWICE DAILY WITH MEALS active Not Available Not Available No t Available atorvastat in 80 mg tablet TAKE 1 TABLET BY MOUTH ONCE DAILY AT BEDTIME 08/16 completed pt not taking 08/17/19 Not Available Not Available Not Available isosorbide mononitrat e ER 30 mg tablet,ext ended release 24 hr TAKE ONE-HALF TABLET BY MOUTH EVERY DAY active Not Available Not Available No t Available alendronat e 70 mg tablet TAKE 1 TABLET BY MOUTH EVERY WEEK active Not Available Not Available No t Available amlodipine 2.5 mg tablet Take 1 tablet every day by oral route. 08/16 completed pt. not taking Not Available Not Available Not Available metronidaz ole 500 mg tablet active pt not taking 08/17/19 Not Available Not Available Not Available ciprofloxa ko 250 mg tablet 11/21 completed pt not taking 08/17/19 Not Available Not Available Not Available triamcinol one acetonide 0.1 % topical cream APPLY THIN LAYER TOPICALL Y TO THE AFFECTED AREA TWICE DAILY active Not Available Not Available No t Available meloxicam 7.5 mg tablet 12/31 completed Not Available Not Available Not Available Proctozone -HC 2.5 % topical cream perineal applicator APPLY THIN LAYER EXTERNAL LY TO THE AFFECTED AREA 2 TO 4 TIMES DAILY active Not Available Not Available No t Available cephalexin 500 mg capsule TAKE 1 CAPSULE BY MOUTH THREE TIMES DAILY FOR 7 DAYS 06/12 completed Not Available Not Available Not Available tobramycin 0.3 % eye drops 12/31 completed Not Available Not Available Not Available triamcinol one acetonide 0.1 % topical ointment active Not Available Not Available Not Available sertraline 25 mg tablet 12/31 completed Not Available Not Available Not Available hydroxyzin e HCl 25 mg tablet TAKE 1 TABLET BY MOUTH EVERY 6 TO 8 HOURS FOR 7 DAYS NEEDED 06/12 completed Not Available Not Available Not Available mupirocin 2 % topical ointment 05/25 completed Not Available Not Available Not Available metoprolol succinate ER 25 mg tablet,ext ended release 24 hr Take 1 tablet(s ) every day by oral route. 2023 active Not Available Not Available Not Avai lable methylpred nisolone 4 mg tablets in a dose pack TAKE DIRECTED 06/12 completed Not Available Not Available Not Available ondansetro n 4 mg disintegra ting tablet active pt not taking 08/17/19 Not Available Not Available Not Available cefdinir 300 mg capsule 12/31 completed Not Available Not Available Not Available Adult Aspirin EC Low Strength 81 mg tablet,del ayed release Take 1 tablet every day by oral route. 08/24 completed Not Available Not Available Not Available Fosamax once a week 05/25 completed Not Available Not Available Not Available Vitamin D3 50 mcg (2,000 unit) tablet Take 5000 units every day by oral route. 06/27 completed Not Available Not Available Not Available Prevnar 13 (PF) 0.5 mL intramuscu lar syringe 05/25 completed Not Available Not Available Not Available Fluad 2019- 65yr up(PF)45 mcg(15 mcgx3)/0.5 mL intramuscu lar syringe 08/24 completed Not Available Not Available Not Available Vitals Date Recorded Body height Body mass index (BMI) Body weight Heart rate Respiratory rate Oxygen saturation Oxygen saturation in Arterial blood by Pulse oximetry Systolic And Diastolic Provider Name and Address Organization Details Last Updated DateTime 3 162.56 cm 24 kg/m2 20718.9 3 g 70 /min 16 /min 92 % 92 % 132/70 mm[Hg] Santi Beach [facility] 3 10:16:06 Date Recorded Body height Body mass index (BMI) Body weight Heart rate Oxygen saturation Oxygen saturation in Arterial blood by Pulse oximetry Systolic And Diastolic Provider Name and Address Organization Details Last Updated DateTime 2 162.56 cm 22.1 kg/m2 27076.4 2 g 81 /min 97 % 97 % 142/90 mm[Hg] Marlin Kinsey [facility] 2 10:27:39 Date Recorded Body height Oxygen saturation Oxygen saturation in Arterial blood by Pulse oximetry Heart rate Systolic And Diastolic Provider Name and Address Organization Details Last Updated DateTime 2 162.56 cm 96 % 96 % 64 /min 164/108 mm[Hg] CATALINAMARY JANG [facility] 2 11:40:38 Date Recorded Body height Body mass index (BMI) Body weight Heart rate Oxygen saturation Oxygen saturation in Arterial blood by Pulse oximetry Systolic And Diastolic Provider Name and Address Organization Details Last Updated DateTime 2 162.56 cm 23 kg/m2 26225.3 8 g 63 /min 95 % 95 % 122/62 mm[Hg] Santi Beach [facility] 2 09:21:20 Date Recorded Body height Body mass index (BMI) Body weight Oxygen saturation Oxygen saturation in Arterial blood by Pulse oximetry Heart rate Systolic And Diastolic Provider Name and Address Organization Details Last Updated DateTime 1 162.56 cm 22.1 kg/m2 44423.4 2 g 95 % 95 % 64 /min 131/95 mm[Hg] Marlin Kinsey [facility] 1 11:16:24 Social History Question Answer Notes LastModified by [employer] Details LastModified Time Tobacco Smoking Status Former Smoker [facility]uit [facility] 11:58:37 What Was The Date Of Your Most Recent Tobacco Screening? 07/29/2017 Information not available 11/09/2018 Sex: Unknown Functional Status Question Answer Note LastModified by [employer] Details LastModified Time What is your level of alcohol consumption? None Information not available 07/26/2015 Do you or have you ever used smokeless tobacco? Former smokeless tobacco user Information not available 08/15/2019 Do you or have you ever used e-cigarettes or vape? Never used electronic cigarettes Information not available 08/15/2019 Mental Status None recorded. Family History Relationship Description Onset Age of this Age Resolved Age Notes LastModified by Organization Details LastModified Time Mother Hypertensive disorder alive [email or web address] Not available 2015 11:58:21 Notes:No known premature Cor onary artery disease Medical History Condition Response Coronary Artery Disease Y Valvular Heart Disease Y Hyperlipidemia Y Hypertension Y Gynecological HistoryNo gynecological history recorded. Obstetrics History GPAL:G 0 P 0 0 0 0 Past Encounters Encounter ID Performer Location Encounter Start Date Encounter Closed Date Diagnosis/Indication Diagnosis SNOMED-CT Code Diagnosis ICD10 Code Diagnosis IMO Codes Diagnosis Note [id number] Armando Thomas MD [place] OFFICE [address] [place] [address] 05/25/2016 14:58:01 05/26/2016 10:27:03 Coronary arteriosclerosis 95441943 I25.10 WIth moderate 2 vessels disease Systolic murmur 27766958 R01.0 Mitral bolivar ve regurgitation 02026010 I34.0 Aortic valve stenosis 60 457297 I35.0 Stable angina 615638410 I20.9 Will consider Cardiac rehab Dyslipidemia 840774814 E 78.5 Needs to keep LDL less than 70, and HDL more than 40 Will get lipid profile results from PCP [id number] Armando Thomas MD [place] OFFICE [address] [place] [address] 06/29/2016 14:29:50 06/30/2016 09:18:59 Coronary arteriosclerosis 95906294 I25.10 WIth moderate 2 vessels disease Systolic murmur 74474293 R01.0 with mild MR, stable Mitral bolivar ve regurgitation 61376793 I34.0 Aortic valve stenosis 60 954570 I35.0 Stable angina 958369367 I20.9 Now stable asa exercise Dyslipidemia 103892966 E 78.5 Needs to keep LDL less than 70, and HDL more than 40 Now well controlled Electrocar diogram abnormal 833242990 R94.31 [id number] Armando Thomas MD [place] OFF[facility] [place] [address] 12/31/2016 11:10:36 12/31/2016 12:40:58 Coronary arteriosclerosis 92622102 I25.10 WIth moderate 2 vessels disease, Would continue with the current management , and medication s. Systolic murmur 34015039 R01.0 with mild MR, stable Mitral bolivar ve regurgitation 60448149 I34.0 Aortic valve stenosis 60 472158 I35.0 Stable Stable angina 796969553 I20.9 Now stable asa exercise Dyslipidemia 847824446 E 78.5 Needs to keep LDL less than 70, and HDL more than 40 Now well controlled 04/08/16 LDL 62 , Electrocar diogram abnormal 028035315 R94.31 [id number] Armando Thomas MD [place] OFFICE [address] [place] [address] 07/08/2017 11:19:41 07/12/2017 16:15:15 Coronary arteriosclerosis 51933056 I25.10 04/30/15 CATH: with moderate 2 vessels disease. Would continue with the current management , and medication s. Systolic murmur 09401083 R01.0 with mild MR, stable 05/21/16 ECHO: LV chamber size is normal. LV wall thickness is normal. There is moderate concentric LV hypertroph y. LV systolic function is hyperdynam ic. The estimated left ventricle ejection fraction is 60-65%( normal). Diastolic filling reveals impaired relaxation (grade 1 diastolic dysfunctio n). There is mild aortic valve sclerosis without significan t stenosis. There is mild mitral regurgitat ion. There is mild tricuspid regurgitat ion. Mitral bolivar ve regurgitation 16783145 I34.0 Needs good BP Will restart Imdur 30mg 0.5 tablet daily Aortic valve stenosis 60 605273 I35.0 Stable Stable angina 987338966 I20.9 Now stable ASA exercise Dyslipidemia 764596201 E 78.5 Needs to keep LDL less than 70, and HDL more than 40 Now well controlled 04/08/16: LDL 62 Will obtain FLP from PCP, Dr. Luke Nolasco. Electrocar diogram abnormal 043075248 R94.31 Essential hypertension 59942667 I10 Elevated today Told to re-start Imdur 30mg 0.5mg daily. [id number] Armando Thomas MD [place] OFFICE [address] [place] [address] 07/29/2017 10:12:45 08/01/2017 09:19:30 Essential hypertension 69481975 I10 Well controlled today. Continue Imdur 30mg 0.5 tablet daily. Coronary arteriosclerosis 15622747 I25.10 04/30/15 CATH: with moderate 2 vessels disease. Would continue with the current management , and medication s. Needs to keep LDL less than 70, and HDL more than 40 Systolic murmur 41519769 R01.0 with mild MR, stable 05/21/16 ECHO: LV chamber size is normal. LV wall thickness is normal. There is moderate concentric LV hypertroph y. LV systolic function is hyperdynam ic. The estimated left ventricle ejection fraction is 60-65%( normal). Diastolic filling reveals impaired relaxation (grade 1 diastolic dysfunctio n). There is mild aortic valve sclerosis without significan t stenosis. There is mild mitral regurgitat ion. There is mild tricuspid regurgitat ion. Mitral bolivar ve regurgitation 37518403 I34.0 Needs good BP Will restart Imdur 30mg 0.5 tablet daily Aortic valve stenosis 60 648157 I35.0 Stable Stable angina 556686306 I20.9 Now stable ASA exercise Dyslipidemia 336739867 E 78.5 Needs to keep LDL less than 70, and HDL more than 40 Now well controlled On Atorvastat in 06/30/17: LDL 51 Electrocar diogram abnormal 565127478 R94.31 [id number] Armando Thomas MD [place] [facility] [address] [place] [address] 09/23/2017 09:59:08 09/27/2017 14:25:25 Essential hypertension 45052969 I10 Elevated today. Continue Imdur 30 mg 0.5 tablet daily. Coronary arteriosclerosis 77586716 I25.10 04/30/15 CATH: with moderate 2 vessels disease. Would continue with the current management , and medication s. Needs to keep LDL less than 70, and HDL more than 40 Systolic murmur 48196315 R01.0 with mild MR, stable 05/21/16 ECHO: LV chamber size is normal. LV wall thickness is normal. There is moderate concentric LV hypertroph y. LV systolic function is hyperdynam ic. The estimated left ventricle ejection fraction is 60-65%( normal). Mitral bolivar ve regurgitation 92249082 I34.0 Needs good BP Will restart Imdur 30mg 0.5 tablet daily Aortic valve stenosis 60 242477 I35.0 Stable, mild Stable angina 761062327 I20.9 Now stable ASA exercise Dyslipidemia 636740014 E 78.5 Needs to keep LDL less than 70, and HDL more than 40 Now well controlled On Atorvastat in 06/30/17: LDL 51 Cramp in lower limb 4499 73323 R25.2 Will get arterial duplex, to evaluate severity of peripheral vascular disease [id number] Armando Thomas MD [place] [facility] [address] [place] [address] 12/27/2017 09:04:25 12/27/2017 10:18:14 Cramp in lower limb 742657110 R25.2 No significan t lower extremity peripheral arterial disease. Essential hypertension 73956755 I10 Well controlled today. Coronary arteriosclerosis 84318930 I25.10 04/30/15 CATH: with moderate 2 vessels disease. Would continue with the current management , and medication s. 06/30/17 LDL 51 Systolic murmur 74859647 R01.0 with mild MR, stable ECHO 10/25/17:L V chamber size is normal,The re is borderline LV hypertroph y , LV systolic function is hyperdynam ic,EF 60-65%,Nor mal left atrial pressure with grade I diastolic dysfunctio n,There is mild aortic valve sclerosis without significan t stenosis,t here is mild thickening of mitral valve anterior leaflet,th ere is mild pulmonary hypertensi on, Estimated RVSP is 38 mmHg. Aortic valve stenosis 60 993080 I35.0 Stable, mild Dyslipidemia 851200045 E 78.5 Needs to keep LDL less than 70, and HDL more than 40 Now well controlled On Atorvastat in 06/30/17: LDL 51 [id number] Armando Thomas MD [place] [facility] [address] [place] [address] 06/27/2018 10:27:41 06/27/2018 12:14:14 Coronary arteriosclerosis 45713900 I25.10 Without CP but with DUVALL when walking up stairs. 04/30/15 CATH: with moderate 2 vessels disease. Treadmill Myoview Stress test, has high [place] Risk score. Has Known CAD, or CAD risk equivalent . To look for any ischemia. Will continue with maximal medical treatment and risk factor modificati on. Essential hypertension 84879131 I10 Not at goal. Will start Amlodipine . Cramp in lower limb 4499 56077 R25.2 Stable. No significan t lower extremity peripheral arterial disease. Aortic valve stenosis 60 662956 I35.0 Stable, mild Systolic murmur 16757145 R01.0 with mild MR, stable ECHO 10/25/17:L V chamber size is normal,The re is borderline LV hypertroph y , LV systolic function is hyperdynam ic,EF 60-65%,Nor mal left atrial pressure with grade I diastolic dysfunctio n,There is mild aortic valve sclerosis without significan t stenosis,t here is mild thickening of mitral valve anterior leaflet,th ere is mild pulmonary hypertensi on, Estimated RVSP is 38 mmHg. Dyslipidemia 665222563 E 78.5 Needs to keep LDL less than 70, and HDL more than 40 06/30/17: LDL 51 [place] [id number] Armando Thomas MD [place] [facility] [address] [place] [address] 12/29/2018 10:34:03 01/01/2019 01:00:52 Dyspnea on exertion 25203086 R06.09 Coronary arteriosclerosis 47065167 I25.10 Without CP but with DUVALL when walking up stairs. 04/30/15 CATH: with moderate 2 vessels disease. Treadmill Myoview Stress test, has high [place] Risk score. Has Known CAD, or CAD risk equivalent . To look for any ischemia. Will continue with maximal medical treatment and risk factor modificati on. Hyperlipidemia 37293830 E78.5 Needs to keep LDL less than 70, and HDL more than 40 06/2017 LDL 51 Will get fasting lipids for follow up Aortic valve stenosis 60 926331 I35.0 Stable, mild ECHO 10/25/17:L V chamber size is normal,The re is borderline LV hypertroph y , LV systolic function is hyperdynam ic,EF 60-65%,Nor mal left atrial pressure with grade I diastolic dysfunctio n,There is mild aortic valve sclerosis without significan t stenosis,t here is mild thickening of mitral valve anterior leaflet,th ere is mild pulmonary hypertensi on, Estimated RVSP is 38 mmHg. [id number] Armando Thomas MD [place] [facility] [address] [place] [address] 03/26/2019 13:49:12 03/31/2019 12:54:19 Coronary arteriosclerosis 58796380 I25.10 Without CP but with DUVALL when walking up stairs. 04/30/15 CATH: with moderate 2 vessels disease. 01/04/19: TDM negative stress test normal LV systolic function. LVEF> 60% Will continue with maximal medical treatment and risk factor modificati on. Dyspnea on exertion 6084 5006 R06.09 01/04/19: TDM negative stress test normal LV systolic function. LVEF> 60% Hyperlipidemia 63247927 E78.5 Needs to keep LDL less than 70, and HDL more than 40 06/2017 LDL 51 Will get fasting lipids for follow up Aortic valve stenosis 60 339701 I35.0 Stable, mild ECHO 10/25/17:L V chamber size is normal,The re is borderline LV hypertroph y , LV systolic function is hyperdynam ic,EF 60-65%,Nor mal left atrial pressure with grade I diastolic dysfunctio n,There is mild aortic valve sclerosis without significan t stenosis,t here is mild thickening of mitral valve anterior leaflet,th ere is mild pulmonary hypertensi on, Estimated RVSP is 38 mmHg. Essential hypertension 96859233 I10 Not at goal. 03/26/19 Patient states that she is not going to take amlodipine . She states that her BP is increased with doctor visits. [id number] Janes Hernandez MD [place] [facility] [address] [place] [address] 08/17/2019 12:46:04 08/17/2019 14:42:49 Coronary arteriosclerosis 43468572 I25.10 Stable, asymptomat ic. 04/30/15 CATH: with moderate 2 vessels disease. 01/04/19: TDM negative stress test normal LV systolic function. LVEF> 60% Will continue with maximal medical treatment and risk factor modificati on. Dyspnea on exertion 6084 5006 R06.09 01/04/19: TDM negative stress test normal LV systolic function. LVEF> 60% Hyperlipidemia 57482127 E78.5 Needs to keep LDL less than 70, and HDL more than 40 06/2017 LDL 51 Will get fasting lipids for follow up Aortic valve stenosis 60 969146 I35.0 Stable, mild ECHO 10/25/17:L V chamber size is normal,The re is borderline LV hypertroph y , LV systolic function is hyperdynam ic,EF 60-65%,Nor mal left atrial pressure with grade I diastolic dysfunctio n,There is mild aortic valve sclerosis without significan t stenosis,t here is mild thickening of mitral valve anterior leaflet,th ere is mild pulmonary hypertensi on, Estimated RVSP is 38 mmHg. Essential hypertension [id number] I10 Controlled . [id number] Armando Thomas MD [facility] [address] [place] [address] 11/23/2019 10:42:00 11/26/2019 10:18:21 Coronary arteriosclerosis [id number] I25.10 Stable, asymptomat ic. 04/30/2015 CATH: with moderate 2 vessel disease 01/04/2019: TDM negative stress test normal LV systolic function, LVEF> 60%. Continue with maximal medical treatment and risk factor modificati on Dyspnea on exertion 6084 5006 R06.09 Stable, mild, unchanged. 01/04/1019: TDM negative stress test normal LV systolic function, LVEF> 60%. Hyperlipidemia 15182604 E78.5 Needs to keep LDL less than 70, and HDL more than 40. 06/30/2017 LDL 51Continue atorvastat in 40mg nightly Will get fasting lipids for follow-up Aortic valve stenosis 60 582147 I35.0 Stable, mild. 11/05/2019: Echocardio graphic Studies : LV chamber size is normal LV wall thickness is normal The estimated left ventricle ejection fraction is 55-60% There is increased left atrial pressure and Grade 11 diastolic dysfunctio n There is mild aortic valve sclerosis with out significan t stenosis There is trivial aortic regurgitat ion The mitral valve leaflet is mildly thickened Therwe is mild mitral regurgitat ion There is mild tricuspid regurgitat ion Mild elevation of estimated RV systoic pressure Estimated RVSP sytolic pressure is 40mmhg There is mild pulmonic regurgitat ion Essential hypertension [id number] I10 Controlled [id number] Armando Thomas MD [place] [facility] [address] [place] [address] 11/21/2020 10:45:42 11/21/2020 11:40:18 Coronary arteriosclerosis [id number] I25.10 Stable, asymptomat ic. 04/30/2015 CATH: with moderate 2 vessel diseaseTre admill Myoview Stress test, has high [place] Risk score. Has Known CAD, or CAD risk equivalent . To look for any ischemia. Dyspnea on exertion 6084 5006 R06.09 Stable, mild, unchanged. 01/04/1019: TDM negative stress test normal LV systolic function, LVEF> 60%. Hyperlipidemia 78955154 E78.5 Needs to keep LDL less than 70, and HDL more than 40. 06/30/2017 LDL 51Continue atorvastat in 40mg nightly Will get fasting lipids for follow-up Aortic valve stenosis 60 843255 I35.0 Stable, mild. 11/05/2019: Echocardio graphic Studies : LV chamber size is normal LV wall thickness is normal The estimated left ventricle ejection fraction is 55-60% There is increased left atrial pressure and Grade 11 diastolic dysfunctio n There is mild aortic valve sclerosis with out significan t stenosis There is trivial aortic regurgitat ion The mitral valve leaflet is mildly thickened Therwe is mild mitral regurgitat ion There is mild tricuspid regurgitat ion Mild elevation of estimated RV systoic pressure Estimated RVSP sytolic pressure is 40mmhg There is mild pulmonic regurgitat ion Essential hypertension 79942101 I10 Controlled Palpitations 86693279 R0 0.2 exertional Palpitatio n, [place] [address] Armando Thomas MD [place] [facility] [address] [place] [address] 06/12/2021 09:38:58 06/12/2021 11:39:16 Coronary arteriosclerosis 96616198 I25.10 Stable, asymptomat ic.Treadmi ll Myoview Stress test, has high [place] Risk score. Has Known CAD, or CAD risk equivalent . To look for any ischemia. Dyspnea on exertion 6084 5006 R06.09 Stable, mild, unchanged. 01/04/1019: TDM negative stress test normal LV systolic function, LVEF> 60%. Hyperlipidemia 25354145 E78.5 Needs to keep LDL less than 70, and HDL more than 40. 06/30/2017 LDL 51Continue atorvastat in 40mg nightly Will get fasting lipids for follow-up Aortic valve stenosis 60 615079 I35.0 Now with chest painObtain echo to evaluate for structural /functiona l disease. Essential hypertension 25167738 I10 Controlled Palpitations 99421206 R0 0.2 exertional Palpitatio n, will get stress test to evaluate Atypical chest pain 1025 54196 R07.89 Treadmill Myoview Stress test, has high [place] Risk score. Has Known CAD, or CAD risk equivalent . To look for any ischemia. 70638 Armando Thomas MD [facility] [address] [place] [address] 09/25/2021 10:45:58 09/25/2021 12:15:40 Coronary arteriosclerosis 37450389 I25.10 Stable, asymptomat ic.Treadmi ll Myoview Stress test with mild lateral ischemiaMa ximal medical treatment Dyspnea on exertion 6084 5006 R06.09 Stable, mild, unchanged. Hyperlipidemia 97697276 E78.5 Needs to keep LDL less than 70, and HDL more than 40. 06/30/2017 LDL 51Continue atorvastat in 40mg nightly Will get fasting lipids for follow-up Aortic valve stenosis 60 859695 I35.0 Now with chest painObtain echo to evaluate for structural /functiona l disease. Essential hypertension 56077160 I10 Blood pressure is elevated today, but this is only one reading, will keep close follow up, and consider medication change if blood pressure is still elevated next visit. Palpitations 48016197 R0 0.2 resolved, now with Toprol Atypical chest pain 1025 02433 R07.89 Treadmill Myoview Stress test with lateral ischemia 63202 Armando Thomas MD [place] [facility] [place] [address] 10/23/2021 09:06:35 10/23/2021 10:03:58 Coronary arteriosclerosis 55410864 I25.10 Stable, asymptomat ic.Treadmi ll Myoview Stress test with mild lateral ischemiaMa ximal medical treatment Dyspnea on exertion 6084 5006 R06.09 Stable, mild, unchanged. Hyperlipidemia 98204306 E78.5 Needs to keep LDL less than 70, and HDL more than 40. 06/30/2017 LDL 51Continue atorvastat in 40mg nightly Will get fasting lipids for follow-up Aortic valve stenosis 60 155754 I35.0 Mildstable Essential hypertension 03376209 I10 Now well controlled Palpitations 60704653 R0 0.2 resolved, now with Toprol Atypical chest pain 1025 66903 R07.89 Treadmill Myoview Stress test with lateral ischemia 87211 Armando Thomas MD [place] [facility] [place] [address] 04/23/2022 09:22:28 04/23/2022 10:37:11 Coronary arteriosclerosis 44316693 I25.10 Stable, asymptomat ic.Treadmi ll Myoview Stress test with mild lateral ischemiaMa ximal medical treatment Dyspnea on exertion 6084 5006 R06.09 Stable, mild, unchanged. Hyperlipidemia 48005630 E78.5 Needs to keep LDL less than 70, and HDL more than 40. 06/30/2017 LDL 51Continue atorvastat in 40mg nightly Will get fasting lipids for follow-up Aortic valve stenosis 60 350443 I35.0 Mildstable Essential hypertension 97651729 I10 Now well controlled Palpitations 43487842 R0 0.2 resolved, now with Toprol Health Concerns Section Related Observation LastModified by Organization Detai ls LastModified Time None Recorded Concern Status LastModified by Organization Details LastModified Time None Recorded Advance Directives Directive None Recorded Payers Insurance Date Sequence Insurance Name Policy Number Policy Reddy Covered Member ID Reddy Member ID Guarantor Name 06/10/2021 1 [place] Carmella Garcia [id number] Carmella Garcia 04/20/2022 1 [employer] (MEDICARE REPLACEMENT/AD VANTAGE - HMO) Carmella Garcia [id number] Carmella Garcia 06/10/2021 1 [place] Carmella Garcia [id number] Carmella Garcia 06/10/2021 1 [employer] [place]MEDICARE REPLACEMENT HMO) Carmella Garcia [id number] Carmella Garcia 06/10/2021 1 [employer] (MEDICARE REPLACEMENT/AD VANTAGE - PPO) Carmella Garcia [id number] Carmella Garcia 04/20/2022 2 [facility] (MEDICAID HMO) [id number] Carmella Garcia [id number] Carmella Garcia 06/10/2021 1 [employer] [facility] (MEDICAID HMO) Carmella Garcia [id number] Carmella Garcia 06/10/2021 1 [place] DEPARTMENT [place] PUBLIC A[employer] Carmella Garcia [id number] Carmella Garcia Notes Date Note Type Note Provider Name and Address Organization Details Recorded Time 1 text/html HyperlipidemiaReported by s CC : Cardiac follow up, [id number] year-old woman with a PMH of Coronary artery disease (mod 2 vessel), hypertension, dyslipidemia, and Aortic Valve Stenosis, presents today for 1 year follow-up. She was last seen in our office on 11/23/19 and since that time she feels OK, she is active. He denies ER visits and hospitalizations since he was last seen. No chest pain. No shortness of breath at rest. No dyspnea on exertion. No orthopnea. No PND. No dizziness. Has occasional palpitation. No syncope or near syncope. No leg swelling. No nausea and vomiting. PreviouslyShe is active, exercises. Reports improved SOB but reports mild dyspnea on exertion. *Had ECHO done in 11/05/19 showed EF 55-60%, There is increased left atrial pressure and Grade 11 diastolic dysfunction There is mild aortic valve sclerosis with out significant stenosis There is trivial aortic regurgitation The mitral valve leaflet is mildly thickened Therwe is mild mitral regurgitation There is mild tricuspid regurgitation Mild elevation of estimated RV systoic pressure Estimated RVSP sytolic pressure is 40mmhg There is mild pulmonic regurgitation. *Had LHC 04/30/15 revealing two vessel moderate coronary artery disease. Normal left ventricular size and systolic function. *Had lower extremity arterial US done in 10/25/17 showed No significant lower extremity peripheral arterial disease . *Had negative stress test done in 01/04/19 with normal LV systolic function, EF > 60% . *Had pulmonary function test done in 01/04/19 showed Normal spirometry without any evidence of obstructive ventilatory impairment. Lung volumes demonstrate evidence of air trapping. DLCO is mildly reduced compatible with diffusion impairment. Findings can be seen with pulmonary parenchymal/pulmonary vascular disorders. Suggest clinical correlation. Results from this visit, or from the past:04/02/20 CBC: WBC 4.0, RBC 4.46, HGB 13.0, HCT 42.9, PLT 26222 LIPID: TC 149, TG 65, HDL 80, LDL : URIC ACID 3.612: Mg 2.012: VIT D 35.912: TSH 0.19905: FOLATE 7.083: TC: 128, TR: 147, HDL: 45, LDL: 513: NA: 145, K: 4.1, CL: 102, CO2: 32, GLU: 66, BUN: 12, CR: 0.903: WBC: 5.5, RBC: 4.27, HGB: 12.3, HCT: 38.1, PLT: 3860304/08/16: TC 130 ,TG 58 ,HDL 58 ,LDL 62 ,02/26/15 : TC 185, HDL 70, TR 70, LDL 101 LIPIDS: 02/26/15 : TC 185, HDL 70, TR 70, LDL 101, AST 16, ALT 10 02/26/15 SOD 140, K 4.3, CL 105, Co2 20, GLU 87, BUN 12, CR 0.84 EKG (08/17/19): NSR, poor R progression, NSST changesEKG, 06/27/18: Sinus Rhythm P..normal. QRS.. left axis deviation. ST-T.. normal. EKG, without significant abnormalities. mwu 12/27/17 EKG: Poor R progression in chest leads. Left axis deviation.EKG 09/23/17 : Low voltage chest leads Poor R progression in chest leads Left axis deviation EKG 07/08/17 : Left axis deviation Inverted T wave in aVL EKG 12/31/16 : Poor R progression in chest leads. Left axis deviation.05/25/16 EKG: Sinus rhythm. P: normal. QRS. marked left axis deviation. anterior infarct. QS in V4. R< 0.[address]-T: slight left-precordial ST-T changes consistent with infarct. small negative T in V5 V6. Abnormal ECG. EK02/18/15 Sinus rhythm. Consider old anterior infarct. Abnormal 01/01/19 TDM- Negative stress test. Normal LV systolic function. LVEF >60% 01/04/19 Normal spirometry without any evidence of obstructive ventilatory impairment. Lung volumes demonstrate evidence of air trapping. DLCO is mildly reduced compatible with diffusion impairment. Findings can be seen with pulmonary parenchymal/pulmonary vascular disorders. Suggest clinical correlation. STRESS TEST: NUC: 03/25/15 Positive stress test. Normal LV systolic function. Reversible defect consistent with ischemia in apical area. No previous study to compare. LVEF >60%. 11/05/2019 : Echocardiographic Studies : LV chamber size is normal LV wall thickness is normal The estimated Left ventricle ejection fraction is 55-60% There is increased left atrial pressure and Grade 11 diastolic dysfunction There is mild aortic valve sclerosis with out significant stenosis There is trivial aortic regurgitation The mitral valve leaflet is mildly thickened There is mild mitral regurgitation There is mild tricuspid regurgitation Mild elevation of estimated RV systolic pressure Estimated RVSP systlic pressure is 40 mmhg there is mild pulmonic regurgitation ECHO 10/25/17:LV chamber size is normal,There is borderline LV hypertrophy , LV systolic function is hyperdynamic,EF 60-65%,Normal left atrial pressure with grade I diastolic dysfunction,There is mild aortic valve sclerosis without significant stenosis,there is mild thickening of mitral valve anterior leaflet,there is mild pulmonary hypertension, Estimated RVSP is 38 mmHg. ECHO 05/21/16 ECHOCARDIOGRAM REPORT: LV chamber size is normal. LV wall thickness is normal. There is moderate concentric LV hypertrophy. LV systolic function is hyperdynamic. The estimated left ventricle ejection fraction is 60-65%( normal). Diastolic filling reveals impaired relaxation(grade 1 diastolic dysfunction). There is mild aortic valve sclerosis without significant stenosis. There is mild mitral regurgitation. There is mild tricuspid regurgitation. ECHO: ECHO: 03/25/15 Normal global left ventricular size, wall thickness, systolic function with no obvious regional wall motion abnormalities with an EF >55%. Pseudonormal LV filling pattern for age (stage II diastolic dysfunction). There is mild aortic valve sclerosis without stenosis. Mild mitral regurgitation is present. Right ventricular pressure is normal at <35 mmHg. Complex (>4 mm) atherosclerotic plaque(s) located in the ascending aortic with no apparent overlying/protruding thrombus. Non complex (<4 mm), atherosclerotic plaque(s) located in the descending aorta. CARDIAC CATHETERIZATION: 04/30/15 CATH: Two vessel moderate coronary artery disease. Normal left ventricular size and systolic function. US, Duplex, Arterial, Lower Extremity 10/25/17 : No significant lower extremity peripheral arterial disease noted. Armando Thomas MD [address] [place], [address], [facility] 11/21/2020 11:41:47 2 text/html HyperlipidemiaReported by s 06/12/21CC : Cardiac follow up, [id number] year-old woman with a PMH of Coronary artery disease (mod 2 vessel), hypertension, dyslipidemia, and Aortic Valve Stenosis, presents today for follow-up with stress test results. She was last seen in the clinic on 11/21/20 , since then she has more Dizziness, and chest painShe denies ER visits and hospitalizations since she was last seen. Denies shortness of breath at rest. Has mild dyspnea on exertion.No orthopnea. No PNDs.has occasional heart palpitations.Denies dizziness. Denies syncope or near syncope.No ankle or leg edema.No major bleeding events.No reported side effects from medications. Taking medications as prescribed with no missed doses.Denies snoring, daytime somnolence and AM headache.*Last LDL was 56 done on 04/01/20 .Pt takes atorvastatin 40 mg. She is active, exercises. Reports improved SOB but reports mild dyspnea on exertion. *Had ECHO done in 11/05/19 showed EF 55-60%, There is increased left atrial pressure and Grade 11 diastolic dysfunction There is mild aortic valve sclerosis with out significant stenosis There is trivial aortic regurgitation The mitral valve leaflet is mildly thickened Therwe is mild mitral regurgitation There is mild tricuspid regurgitation Mild elevation of estimated RV systoic pressure Estimated RVSP sytolic pressure is 40mmhg There is mild pulmonic regurgitation. *Had LHC 04/30/15 revealing two vessel moderate coronary artery disease. Normal left ventricular size and systolic function. *Had lower extremity arterial US done in 10/25/17 showed No significant lower extremity peripheral arterial disease . *Had negative stress test done in 01/04/19 with normal LV systolic function, EF > 60% . *Had pulmonary function test done in 01/04/19 showed Normal spirometry without any evidence of obstructive ventilatory impairment. Lung volumes demonstrate evidence of air trapping. DLCO is mildly reduced compatible with diffusion impairment. Findings can be seen with pulmonary parenchymal/pulmonary vascular disorders. Suggest clinical correlation. Results from this visit, or from the past:04/02/20 CBC: WBC 4.0, RBC 4.46, HGB 13.0, HCT 42.9, PLT 17292 LIPID: TC 149, TG 65, HDL 80, LDL : URIC ACID 3.612: Mg 2.012: VIT D 35.912: TSH 0.01181: FOLATE 7.083: TC: 128, TR: 147, HDL: 45, LDL: 513: NA: 145, K: 4.1, CL: 102, CO2: 32, GLU: 66, BUN: 12, CR: 0.903: WBC: 5.5, RBC: 4.27, HGB: 12.3, HCT: 38.1, PLT: 91008: TC 130 ,TG 58 ,HDL 58 ,LDL 62 ,02/26/15 : TC 185, HDL 70, TR 70, LDL 101 LIPIDS: 02/26/15 : TC 185, HDL 70, TR 70, LDL 101, AST 16, ALT 10 11/11/15 SOD 140, K 4.3, CL 105, Co2 20, GLU 87, BUN 12, CR 0.84 EKG (08/17/19): NSR, poor R progression, NSST changesEKG, 06/27/18: Sinus Rhythm P..normal. QRS.. left axis deviation. ST-T.. normal. EKG, without significant abnormalities. mwu 12/27/17 EKG: Poor R progression in chest leads. Left axis deviation.EKG 09/23/17 : Low voltage chest leads Poor R progression in chest leads Left axis deviation EKG 07/08/17 : Left axis deviation Inverted T wave in aVL EKG 12/31/16 : Poor R progression in chest leads. Left axis deviation.05/25/16 EKG: Sinus rhythm. P: normal. QRS. marked left axis deviation. anterior infarct. QS in V4. R< 0.[address]-T: slight left-precordial ST-T changes consistent with infarct. small negative T in V5 V6. Abnormal ECG. EK02/18/15 Sinus rhythm. Consider old anterior infarct. Abnormal 01/01/19 TDM- Negative stress test. Normal LV systolic function. LVEF >60% 01/04/19 Normal spirometry without any evidence of obstructive ventilatory impairment. Lung volumes demonstrate evidence of air trapping. DLCO is mildly reduced compatible with diffusion impairment. Findings can be seen with pulmonary parenchymal/pulmonary vascular disorders. Suggest clinical correlation. STRESS TEST: NUC: 03/25/15 Positive stress test. Normal LV systolic function. Reversible defect consistent with ischemia in apical area. No previous study to compare. LVEF >60%. 11/05/2019 : Echocardiographic Studies : LV chamber size is normal LV wall thickness is normal The estimated Left ventricle ejection fraction is 55-60% There is increased left atrial pressure and Grade 11 diastolic dysfunction There is mild aortic valve sclerosis with out significant stenosis There is trivial aortic regurgitation The mitral valve leaflet is mildly thickened There is mild mitral regurgitation There is mild tricuspid regurgitation Mild elevation of estimated RV systolic pressure Estimated RVSP systlic pressure is 40 mmhg there is mild pulmonic regurgitation ECHO 10/25/17:LV chamber size is normal,There is borderline LV hypertrophy , LV systolic function is hyperdynamic,EF 60-65%,Normal left atrial pressure with grade I diastolic dysfunction,There is mild aortic valve sclerosis without significant stenosis,there is mild thickening of mitral valve anterior leaflet,there is mild pulmonary hypertension, Estimated RVSP is 38 mmHg. ECHO 05/21/16 ECHOCARDIOGRAM REPORT: LV chamber size is normal. LV wall thickness is normal. There is moderate concentric LV hypertrophy. LV systolic function is hyperdynamic. The estimated left ventricle ejection fraction is 60-65%( normal). Diastolic filling reveals impaired relaxation(grade 1 diastolic dysfunction). There is mild aortic valve sclerosis without significant stenosis. There is mild mitral regurgitation. There is mild tricuspid regurgitation. ECHO: ECHO: 03/25/15 Normal global left ventricular size, wall thickness, systolic function with no obvious regional wall motion abnormalities with an EF >55%. Pseudonormal LV filling pattern for age (stage II diastolic dysfunction). There is mild aortic valve sclerosis without stenosis. Mild mitral regurgitation is present. Right ventricular pressure is normal at <35 mmHg. Complex (>4 mm) atherosclerotic plaque(s) located in the ascending aortic with no apparent overlying/protruding thrombus. Non complex (<4 mm), atherosclerotic plaque(s) located in the descending aorta. CARDIAC CATHETERIZATION: 04/30/15 CATH: Two vessel moderate coronary artery disease. Normal left ventricular size and systolic function. US, Duplex, Arterial, Lower Extremity 10/25/17 : No significant lower extremity peripheral arterial disease noted. Armanod Thomas MD [address] [place], [address], [facility] 06/12/2021 11:22:55 2 text/html HyperlipidemiaReported by s 09/25/21CC : Cardiac follow up86 year-old woman with a PMH of Coronary artery disease (mod 2 vessel), hypertension, dyslipidemia, and Aortic Valve Stenosis, presents today for 3 month follow-up. She was last seen in the clinic on 05/23/21 , since then sheShe denies ER visits and hospitalizations since she was last seen. Today reports:Denies chest pain.Denies shortness of breath at rest. Has mild dyspnea on exertion.No orthopnea. No PNDs.Denies heart palpitations.Denies dizziness. Denies syncope or near syncope.No ankle or leg edema.No major bleeding events.No reported side effects from medications. Taking medications as prescribed with no missed doses.Denies snoring, daytime somnolence and AM headache.*Last LDL was 56 done on 04/01/20 .Pt takes atorvastatin 40 mg. *Had ECHO done on 07/13/21 showed LV chamber size is normal,LV wall thickness is mildly increased,LVEF is 55-60%,there is normal global systolic function and contarctility,LV relaxation is impaired,the aortic valve is mildly calcified,there is minimal aortic regurgitation,there is mild thickening of the mitral valve anterior leaflet,there is mild mitral regurgitation,there is trace tricuspid regurgitation. Previously:She had more Dizziness, and chest pain She is active, exercises. Reports improved SOB but reports mild dyspnea on exertion. *Had LHC 04/30/15 revealing two vessel moderate coronary artery disease. Normal left ventricular size and systolic function. *Had lower extremity arterial US done in 10/25/17 showed No significant lower extremity peripheral arterial disease . *Had negative stress test done in 01/04/19 with normal LV systolic function, EF > 60% . *Had pulmonary function test done in 01/04/19 showed Normal spirometry without any evidence of obstructive ventilatory impairment. Lung volumes demonstrate evidence of air trapping. DLCO is mildly reduced compatible with diffusion impairment. Findings can be seen with pulmonary parenchymal/pulmonary vascular disorders. Suggest clinical correlation. Results from this visit, or from the past:04/02/20 CBC: WBC 4.0, RBC 4.46, HGB 13.0, HCT 42.9, PLT 92069 LIPID: TC 149, TG 65, HDL 80, LDL : URIC ACID 3.612: Mg 2.012: VIT D 35.912: TSH 0.97273: FOLATE 7.083: TC: 128, TR: 147, HDL: 45, LDL: 513: NA: 145, K: 4.1, CL: 102, CO2: 32, GLU: 66, BUN: 12, CR: 0.903: WBC: 5.5, RBC: 4.27, HGB: 12.3, HCT: 38.1, PLT: 7087304/08/16: TC 130 ,TG 58 ,HDL 58 ,LDL 62 ,02/26/15 : TC 185, HDL 70, TR 70, LDL 101 LIPIDS: 02/26/15 : TC 185, HDL 70, TR 70, LDL 101, AST 16, ALT 10 02/26/15 SOD 140, K 4.3, CL 105, Co2 20, GLU 87, BUN 12, CR 0.84 EKG (08/17/19): NSR, poor R progression, NSST changesEKG, 06/27/18: Sinus Rhythm P..normal. QRS.. left axis deviation. ST-T.. normal. EKG, without significant abnormalities. mwu 12/27/17 EKG: Poor R progression in chest leads. Left axis deviation.EKG 09/23/17 : Low voltage chest leads Poor R progression in chest leads Left axis deviation EKG 07/08/17 : Left axis deviation Inverted T wave in aVL EKG 12/31/16 : Poor R progression in chest leads. Left axis deviation.05/25/16 EKG: Sinus rhythm. P: normal. QRS. marked left axis deviation. anterior infarct. QS in V4. R< 0.[address]-T: slight left-precordial ST-T changes consistent with infarct. small negative T in V5 V6. Abnormal ECG. EK02/18/15 Sinus rhythm. Consider old anterior infarct. Abnormal 01/01/19 TDM- Negative stress test. Normal LV systolic function. LVEF >60% 01/04/19 Normal spirometry without any evidence of obstructive ventilatory impairment. Lung volumes demonstrate evidence of air trapping. DLCO is mildly reduced compatible with diffusion impairment. Findings can be seen with pulmonary parenchymal/pulmonary vascular disorders. Suggest clinical correlation. STRESS TEST: NUC: 03/25/15 Positive stress test. Normal LV systolic function. Reversible defect consistent with ischemia in apical area. No previous study to compare. LVEF >60%. 11/05/2019 : Echocardiographic Studies : LV chamber size is normal LV wall thickness is normal The estimated Left ventricle ejection fraction is 55-60% There is increased left atrial pressure and Grade 11 diastolic dysfunction There is mild aortic valve sclerosis with out significant stenosis There is trivial aortic regurgitation The mitral valve leaflet is mildly thickened There is mild mitral regurgitation There is mild tricuspid regurgitation Mild elevation of estimated RV systolic pressure Estimated RVSP systlic pressure is 40 mmhg there is mild pulmonic regurgitation ECHO 10/25/17:LV chamber size is normal,There is borderline LV hypertrophy , LV systolic function is hyperdynamic,EF 60-65%,Normal left atrial pressure with grade I diastolic dysfunction,There is mild aortic valve sclerosis without significant stenosis,there is mild thickening of mitral valve anterior leaflet,there is mild pulmonary hypertension, Estimated RVSP is 38 mmHg. ECHO 05/21/16 ECHOCARDIOGRAM REPORT: LV chamber size is normal. LV wall thickness is normal. There is moderate concentric LV hypertrophy. LV systolic function is hyperdynamic. The estimated left ventricle ejection fraction is 60-65%( normal). Diastolic filling reveals impaired relaxation(grade 1 diastolic dysfunction). There is mild aortic valve sclerosis without significant stenosis. There is mild mitral regurgitation. There is mild tricuspid regurgitation. ECHO: ECHO: 03/25/15 Normal global left ventricular size, wall thickness, systolic function with no obvious regional wall motion abnormalities with an EF >55%. Pseudonormal LV filling pattern for age (stage II diastolic dysfunction). There is mild aortic valve sclerosis without stenosis. Mild mitral regurgitation is present. Right ventricular pressure is normal at <35 mmHg. Complex (>4 mm) atherosclerotic plaque(s) located in the ascending aortic with no apparent overlying/protruding thrombus. Non complex (<4 mm), atherosclerotic plaque(s) located in the descending aorta. CARDIAC CATHETERIZATION: 04/30/15 CATH: Two vessel moderate coronary artery disease. Normal left ventricular size and systolic function. US, Duplex, Arterial, Lower Extremity 10/25/17 : No significant lower extremity peripheral arterial disease noted. Armando Thomas MD [address] [place], [address], [facility] [place] [facility] 09/25/2021 12:07:10 2 text/html HyperlipidemiaReported by s 10/22/21CC : Cardiac follow up, dyspnea on [id number] year-old woman with a PMH of Coronary artery disease (mod 2 vessel), hypertension, dyslipidemia, and Aortic Valve Stenosis, presents today for 1 month follow-up. She was last seen in the clinic on 09/25/21 , since then she is doing wellShe denies ER visits and hospitalizations since she was last seen. Today reports: PT is here to FU on Stress test results.Denies chest pain.Denies shortness of breath at rest. Has mild dyspnea on exertion.No orthopnea. No PNDs.Denies heart palpitations.Denies dizziness. Denies syncope or near syncope.No ankle or leg edema.No major bleeding events.No reported side effects from medications. Taking medications as prescribed with no missed doses.Denies snoring, daytime somnolence and AM headache.*Last LDL was 56 done on 04/01/20 .Pt takes atorvastatin 40 mg. Previously :*Had ECHO done on 07/13/21 showed LV chamber size is normal,LV wall thickness is mildly increased,LVEF is 55-60%,there is normal global systolic function and contarctility,LV relaxation is impaired,the aortic valve is mildly calcified,there is minimal aortic regurgitation,there is mild thickening of the mitral valve anterior leaflet,there is mild mitral regurgitation,there is trace tricuspid regurgitation. She had more Dizziness, and chest pain She is active, exercises. Reports improved SOB but reports mild dyspnea on exertion. *Had LHC 04/30/15 revealing two vessel moderate coronary artery disease. Normal left ventricular size and systolic function. *Had lower extremity arterial US done in 10/25/17 showed No significant lower extremity peripheral arterial disease . *Had negative stress test done in 01/04/19 with normal LV systolic function, EF > 60% . *Had pulmonary function test done in 01/04/19 showed Normal spirometry without any evidence of obstructive ventilatory impairment. Lung volumes demonstrate evidence of air trapping. DLCO is mildly reduced compatible with diffusion impairment. Findings can be seen with pulmonary parenchymal/pulmonary vascular disorders. Suggest clinical correlation. Results from this visit, or from the past:04/02/20 CBC: WBC 4.0, RBC 4.46, HGB 13.0, HCT 42.9, PLT 68413 LIPID: TC 149, TG 65, HDL 80, LDL : URIC ACID 3.612: Mg 2.012: VIT D 35.912: TSH 0.84617: FOLATE 7.083: TC: 128, TR: 147, HDL: 45, LDL: 513: NA: 145, K: 4.1, CL: 102, CO2: 32, GLU: 66, BUN: 12, CR: 0.903: WBC: 5.5, RBC: 4.27, HGB: 12.3, HCT: 38.1, PLT: 93378/: TC 130 ,TG 58 ,HDL 58 ,LDL 62 ,02/26/15 : TC 185, HDL 70, TR 70, LDL 101 LIPIDS: 02/26/15 : TC 185, HDL 70, TR 70, LDL 101, AST 16, ALT 10 02/26/15 SOD 140, K 4.3, CL 105, Co2 20, GLU 87, BUN 12, CR 0.84 EKG (08/17/19): NSR, poor R progression, NSST changesEKG, 06/27/18: Sinus Rhythm P..normal. QRS.. left axis deviation. ST-T.. normal. EKG, without significant abnormalities. mwu 12/27/17 EKG: Poor R progression in chest leads. Left axis deviation.EKG 09/23/17 : Low voltage chest leads Poor R progression in chest leads Left axis deviation EKG 07/08/17 : Left axis deviation Inverted T wave in aVL EKG 12/31/16 : Poor R progression in chest leads. Left axis deviation.05/25/16 EKG: Sinus rhythm. P: normal. QRS. marked left axis deviation. anterior infarct. QS in V4. R< 0.[address]-T: slight left-precordial ST-T changes consistent with infarct. small negative T in V5 V6. Abnormal ECG. EK02/18/15 Sinus rhythm. Consider old anterior infarct. Abnormal 01/01/19 TDM- Negative stress test. Normal LV systolic function. LVEF >60% 01/04/19 Normal spirometry without any evidence of obstructive ventilatory impairment. Lung volumes demonstrate evidence of air trapping. DLCO is mildly reduced compatible with diffusion impairment. Findings can be seen with pulmonary parenchymal/pulmonary vascular disorders. Suggest clinical correlation. STRESS TEST: NUC: 03/25/15 Positive stress test. Normal LV systolic function. Reversible defect consistent with ischemia in apical area. No previous study to compare. LVEF >60%. 11/05/2019 : Echocardiographic Studies : LV chamber size is normal LV wall thickness is normal The estimated Left ventricle ejection fraction is 55-60% There is increased left atrial pressure and Grade 11 diastolic dysfunction There is mild aortic valve sclerosis with out significant stenosis There is trivial aortic regurgitation The mitral valve leaflet is mildly thickened There is mild mitral regurgitation There is mild tricuspid regurgitation Mild elevation of estimated RV systolic pressure Estimated RVSP systlic pressure is 40 mmhg there is mild pulmonic regurgitation ECHO 10/25/17:LV chamber size is normal,There is borderline LV hypertrophy , LV systolic function is hyperdynamic,EF 60-65%,Normal left atrial pressure with grade I diastolic dysfunction,There is mild aortic valve sclerosis without significant stenosis,there is mild thickening of mitral valve anterior leaflet,there is mild pulmonary hypertension, Estimated RVSP is 38 mmHg. ECHO 05/21/16 ECHOCARDIOGRAM REPORT: LV chamber size is normal. LV wall thickness is normal. There is moderate concentric LV hypertrophy. LV systolic function is hyperdynamic. The estimated left ventricle ejection fraction is 60-65%( normal). Diastolic filling reveals impaired relaxation(grade 1 diastolic dysfunction). There is mild aortic valve sclerosis without significant stenosis. There is mild mitral regurgitation. There is mild tricuspid regurgitation. ECHO: ECHO: 03/25/15 Normal global left ventricular size, wall thickness, systolic function with no obvious regional wall motion abnormalities with an EF >55%. Pseudonormal LV filling pattern for age (stage II diastolic dysfunction). There is mild aortic valve sclerosis without stenosis. Mild mitral regurgitation is present. Right ventricular pressure is normal at <35 mmHg. Complex (>4 mm) atherosclerotic plaque(s) located in the ascending aortic with no apparent overlying/protruding thrombus. Non complex (<4 mm), atherosclerotic plaque(s) located in the descending aorta. CARDIAC CATHETERIZATION: 04/30/15 CATH: Two vessel moderate coronary artery disease. Normal left ventricular size and systolic function. US, Duplex, Arterial, Lower Extremity 10/25/17 : No significant lower extremity peripheral arterial disease noted. Armando Thomas MD [address] [place], [address], [facility] [place] [facility] 10/23/2021 09:57:59 3 text/html HyperlipidemiaReported by s 04/23/22CC : Cardiac follow up, dyspnea on [id number] year-old woman with a PMH of Coronary artery disease (mod 2 vessel), hypertension, dyslipidemia, and Aortic Valve Stenosis, presents today for 6 month follow-up. She was last seen in the clinic on 10/23/21, since then she is doing wellShe denies ER visits and hospitalizations since she was last seen. Today reports:Denies chest pain.Denies shortness of breath at rest. Has mild dyspnea on exertion.No orthopnea. No PNDs.Denies heart palpitations.Denies dizziness. Denies syncope or near syncope.No ankle or leg edema.No major bleeding events.No reported side effects from medications. Taking medications as prescribed with no missed doses.Denies snoring, daytime somnolence and AM headache.*Last LDL was 71 done on 10/08/21.Pt takes atorvastatin 40 mg. Previously:*Had ECHO done on 07/13/21 showed LV chamber size is normal,LV wall thickness is mildly increased,LVEF is 55-60%,there is normal global systolic function and contarctility,LV relaxation is impaired,the aortic valve is mildly calcified,there is minimal aortic regurgitation,there is mild thickening of the mitral valve anterior leaflet,there is mild mitral regurgitation,there is trace tricuspid regurgitation. She is active, exercises. Reports improved SOB but reports mild dyspnea on exertion. *Had LHC 04/30/15 revealing two vessel moderate coronary artery disease. Normal left ventricular size and systolic function. *Had lower extremity arterial US done in 10/25/17 showed No significant lower extremity peripheral arterial disease . *Had negative stress test done in 01/04/19 with normal LV systolic function, EF > 60% . *Had pulmonary function test done in 01/04/19 showed Normal spirometry without any evidence of obstructive ventilatory impairment. Lung volumes demonstrate evidence of air trapping. DLCO is mildly reduced compatible with diffusion impairment. Findings can be seen with pulmonary parenchymal/pulmonary vascular disorders. Suggest clinical correlation. Results from this visit, or from the past:04/02/20 CBC: WBC 4.0, RBC 4.46, HGB 13.0, HCT 42.9, PLT [id number] LIPID: TC 149, TG 65, HDL 80, LDL : URIC ACID 3.612: Mg 2.012: VIT D 35.912: TSH 0.49482: FOLATE 7.083: TC: 128, TR: 147, HDL: 45, LDL: 513: NA: 145, K: 4.1, CL: 102, CO2: 32, GLU: 66, BUN: 12, CR: 0.903: WBC: 5.5, RBC: 4.27, HGB: 12.3, HCT: 38.1, PLT: 06167/: TC 130 ,TG 58 ,HDL 58 ,LDL 62 ,02/26/15 : TC 185, HDL 70, TR 70, LDL 101 LIPIDS: 02/26/15 : TC 185, HDL 70, TR 70, LDL 101, AST 16, ALT 10 02/26/15 SOD 140, K 4.3, CL 105, Co2 20, GLU 87, BUN 12, CR 0.84 EKG (08/17/19): NSR, poor R progression, NSST changesEKG, 06/27/18: Sinus Rhythm P..normal. QRS.. left axis deviation. ST-T.. normal. EKG, without significant abnormalities. u 12/27/17 EKG: Poor R progression in chest leads. Left axis deviation.EKG 09/23/17 : Low voltage chest leads Poor R progression in chest leads Left axis deviation EKG 07/08/17 : Left axis deviation Inverted T wave in aVL EKG 12/31/16 : Poor R progression in chest leads. Left axis deviation.05/25/16 EKG: Sinus rhythm. P: normal. QRS. marked left axis deviation. anterior infarct. QS in V4. R< 0.[address]-T: slight left-precordial ST-T changes consistent with infarct. small negative T in V5 V6. Abnormal ECG. EK02/18/15 Sinus rhythm. Consider old anterior infarct. Abnormal 01/01/19 TDM- Negative stress test. Normal LV systolic function. LVEF >60% 01/04/19 Normal spirometry without any evidence of obstructive ventilatory impairment. Lung volumes demonstrate evidence of air trapping. DLCO is mildly reduced compatible with diffusion impairment. Findings can be seen with pulmonary parenchymal/pulmonary vascular disorders. Suggest clinical correlation. STRESS TEST: NUC: 03/25/15 Positive stress test. Normal LV systolic function. Reversible defect consistent with ischemia in apical area. No previous study to compare. LVEF >60%. 11/05/2019 : Echocardiographic Studies : LV chamber size is normal LV wall thickness is normal The estimated Left ventricle ejection fraction is 55-60% There is increased left atrial pressure and Grade 11 diastolic dysfunction There is mild aortic valve sclerosis with out significant stenosis There is trivial aortic regurgitation The mitral valve leaflet is mildly thickened There is mild mitral regurgitation There is mild tricuspid regurgitation Mild elevation of estimated RV systolic pressure Estimated RVSP systlic pressure is 40 mmhg there is mild pulmonic regurgitation ECHO 10/25/17:LV chamber size is normal,There is borderline LV hypertrophy , LV systolic function is hyperdynamic,EF 60-65%,Normal left atrial pressure with grade I diastolic dysfunction,There is mild aortic valve sclerosis without significant stenosis,there is mild thickening of mitral valve anterior leaflet,there is mild pulmonary hypertension, Estimated RVSP is 38 mmHg. ECHO 05/21/16 ECHOCARDIOGRAM REPORT: LV chamber size is normal. LV wall thickness is normal. There is moderate concentric LV hypertrophy. LV systolic function is hyperdynamic. The estimated left ventricle ejection fraction is 60-65%( normal). Diastolic filling reveals impaired relaxation(grade 1 diastolic dysfunction). There is mild aortic valve sclerosis without significant stenosis. There is mild mitral regurgitation. There is mild tricuspid regurgitation. ECHO: ECHO: 03/25/15 Normal global left ventricular size, wall thickness, systolic function with no obvious regional wall motion abnormalities with an EF >55%. Pseudonormal LV filling pattern for age (stage II diastolic dysfunction). There is mild aortic valve sclerosis without stenosis. Mild mitral regurgitation is present. Right ventricular pressure is normal at <35 mmHg. Complex (>4 mm) atherosclerotic plaque(s) located in the ascending aortic with no apparent overlying/protruding thrombus. Non complex (<4 mm), atherosclerotic plaque(s) located in the descending aorta. CARDIAC CATHETERIZATION: 04/30/15 CATH: Two vessel moderate coronary artery disease. Normal left ventricular size and systolic function. US, Duplex, Arterial, Lower Extremity 10/25/17 : No significant lower extremity peripheral arterial disease noted. Armando Thomas MD [address] [facility], [place], [address], [facility] [place] [facility] 04/23/2022 10:32:53 OBGyn Episode No OBEpisode recorded.
[2025-02-14 15:14] LABS: Alanine Aminotransferase 10 U/L (6-35); Albumin Level 3.7 g/dL (3.5-5.1); Alkaline Phosphatase 76 U/L (38-126); Anion Gap 2 mmol/L (4-12); Aspartate Amino Transferase 25 U/L (14-36); Bilirubin,Total 0.2 mg/dL (0.2-1.3); Blood Urea Nitrogen 15 mg/dL (7-17); Calcium 9.0 mg/dL (8.4-10.2); Carbon Dioxide 32 mmol/L (22-30); Chloride 104 mmol/L (98-107); Cholesterol 221 mg/dL (0-200); Estimated Glomerular Filt Rate 50; Glucose 84 mg/dL (65-110); HDL Direct 65 mg/dL; Potassium 4.2 mmol/L (3.4-5.0); Sodium 138 mmol/L (137-145); Total Protein 7.2 g/dL (6.3-8.2); Triglycerides 149 mg/dL (<150)
[2025-02-14 15:49] LABS: Thyroid Stimulating Hormone 0.666 uIU/mL (0.465-4.680)
== END 2025-02-14 14:34 | disposition home or self-care (01) ==
LOC: ANHLAB 14:36
PROVIDERS: PCP Nurse Practitioner; Visit Provider Nurse Practitioner
DX: E78.5 Hyperlipidemia, unspecified (principal); I10 Essential (primary) hypertension; E55.9 Vitamin D deficiency, unspecified; E03.9 Hypothyroidism, unspecified
CPT/HCPCS: 36415; 80053; 80061; 82306; 84443; 85027